=== PATIENT | male | born 1965 | race Caucasian/White ===

== ENCOUNTER 2019-04-18 15:35 | Outpatient (RCR) | payer OTHER, MEDICAID, SELFPAY | END 2019-04-27 00:01 | LOC: LAB 15:35 | PROVIDERS: Family Provider Family Medicine; Visit Provider Nurse Practitioner Family | DX: I10 Essential (primary) hypertension (principal); E11.9 Type 2 diabetes mellitus without complications; B17.10 Acute hepatitis C without hepatic coma | CPT/HCPCS: 36415; 80048; 85025; 87522 ==

== ENCOUNTER → 2019-06-19 08:27 | Outpatient (BNVA) | payer OTHER, MEDICAID, SELFPAY | PROVIDERS: Family Provider Family Medicine; PCP Family Medicine; Visit Provider Anesthesiology | DX: M54.9 Dorsalgia, unspecified (principal); Z79.891 Long term (current) use of opiate analgesic | CPT/HCPCS: 99213; 99214 ==

== ENCOUNTER → 2019-08-09 08:14 | Outpatient (BNVA) | payer OTHER, MEDICAID, SELFPAY | PROVIDERS: Family Provider Family Medicine; PCP Family Medicine; Visit Provider Anesthesiology | DX: G89.29 Other chronic pain (principal); M51.36 Other intervertebral disc degeneration, lumbar region; M96.1 Postlaminectomy syndrome, not elsewhere classified; M54.2 Cervicalgia; M25.511 Pain in right shoulder; Z79.891 Long term (current) use of opiate analgesic | CPT/HCPCS: 99214 ==

== ENCOUNTER → 2019-12-03 10:30 | Outpatient (BNVA) | payer OTHER, MEDICAID, SELFPAY | PROVIDERS: Family Provider Family Medicine; PCP Family Medicine; Visit Provider Anesthesiology | DX: G89.29 Other chronic pain (principal); M54.42 Lumbago with sciatica, left side; M54.41 Lumbago with sciatica, right side; M51.36 Other intervertebral disc degeneration, lumbar region; M54.9 Dorsalgia, unspecified; M96.1 Postlaminectomy syndrome, not elsewhere classified; M54.2 Cervicalgia; M25.511 Pain in right shoulder; F17.220 Nicotine dependence, chewing tobacco, uncomplicated; Z79.891 Long term (current) use of opiate analgesic | CPT/HCPCS: 99214 ==

== ENCOUNTER → 2020-02-07 10:45 | Outpatient (BNVA) | payer OTHER, MEDICAID, SELFPAY | PROVIDERS: Family Provider Family Medicine; PCP Family Medicine; Visit Provider Anesthesiology | DX: G89.29 Other chronic pain (principal); M54.42 Lumbago with sciatica, left side; M54.41 Lumbago with sciatica, right side; M51.36 Other intervertebral disc degeneration, lumbar region; M54.9 Dorsalgia, unspecified; M96.1 Postlaminectomy syndrome, not elsewhere classified; M54.2 Cervicalgia; F17.220 Nicotine dependence, chewing tobacco, uncomplicated; Z79.891 Long term (current) use of opiate analgesic | CPT/HCPCS: 99214 ==

== ENCOUNTER → 2020-04-02 09:09 | Outpatient (BNVA) | payer OTHER, MEDICAID, SELFPAY | PROVIDERS: Family Provider Family Medicine; PCP Family Medicine; Visit Provider Anesthesiology | DX: G89.29 Other chronic pain (principal); M51.36 Other intervertebral disc degeneration, lumbar region; M54.9 Dorsalgia, unspecified; M96.1 Postlaminectomy syndrome, not elsewhere classified; M54.2 Cervicalgia; Z79.891 Long term (current) use of opiate analgesic | CPT/HCPCS: 99213; 99214 ==

== ENCOUNTER → 2020-06-05 08:56 | Outpatient (BNVA) | payer OTHER, MEDICAID, SELFPAY | PROVIDERS: Family Provider Family Medicine; PCP Family Medicine; Visit Provider Anesthesiology | DX: G89.29 Other chronic pain (principal); M51.36 Other intervertebral disc degeneration, lumbar region; M96.1 Postlaminectomy syndrome, not elsewhere classified; M54.9 Dorsalgia, unspecified; M54.2 Cervicalgia; F17.210 Nicotine dependence, cigarettes, uncomplicated; Z79.891 Long term (current) use of opiate analgesic | CPT/HCPCS: 99214 ==

== ENCOUNTER → 2020-07-22 15:21 | Outpatient (BNVA) | payer OTHER, MEDICAID, SELFPAY | PROVIDERS: Family Provider Family Medicine; PCP Family Medicine; Referring Provider Nurse Practitioner Family; Visit Provider Specialist | DX: M19.071 Primary osteoarthritis, right ankle and foot (principal); M25.571 Pain in right ankle and joints of right foot | CPT/HCPCS: 73610 ==

== ENCOUNTER → 2020-07-24 09:45 | Outpatient (BNVA) | payer OTHER, MEDICAID, SELFPAY | PROVIDERS: Family Provider Family Medicine; PCP Family Medicine; Visit Provider Anesthesiology | DX: G89.29 Other chronic pain (principal); M54.9 Dorsalgia, unspecified; M51.36 Other intervertebral disc degeneration, lumbar region; M54.2 Cervicalgia; M96.1 Postlaminectomy syndrome, not elsewhere classified; F17.220 Nicotine dependence, chewing tobacco, uncomplicated; Z79.891 Long term (current) use of opiate analgesic | CPT/HCPCS: 99214 ==

== ENCOUNTER → 2020-09-11 13:15 | Day surgery (SDC) | payer OTHER, MEDICAID, SELFPAY ==
[2020-09-10 18:09] VITALS: BMI 29.4
[2020-09-11] VITALS (7 sets, daily range): BP systolic 138–167; BP diastolic 59–95; PULSE 81–92; RESP 16–18; TEMP 36.3–37.1; O2SAT 94–95
[2020-09-11 07:35] LABS: Glucose Point of Care 184 mg/dL (70-110)
--- NOTE | 2020-09-11 08:02 | ANES.PREANE2 ---
Pre-Anesthetic Assessment Pre-Anesthetic Assessment: Height/Weight: Height 1.83 m Weight 98.43 kg Preop Diagnosis: Spastic equinus contracture right ankle Proposed Procedure: Operation Date: 09/11/20 10:50 Proposed Procedures p Tendon Lengthening Foot 34117 M24.573(Right) - Jarad Hernandez DPM Was Beta Win taken within 24 hours: Yes Was Clonidine taken within 24 hours: N/A Last intake: Intake Last Liquid Date 09/11/20 Last Liquid Time 05:30 Last Solid Date 09/10/20 Last Solid Time 17:30 Social: Social History: No alcohol and No tobacco Exam: Pre-Anes Outpt Exam: alert, oriented x 3 and regular rate & rhythm Airway: Submandibular: WNL Cervical ROM: WNL MP: 2 Dentition: Full Pulmonary: Pulmonary: COPD CV/HEM: CV/HEM: HTN Metabolic: Metabolic: DM Musc/skel: Musc/skel: Lower Back Pain and Weakness Comments: chronic pain/opioid, wheelchair-bound, right hemiplegia Neuropsych: Neuropsych: Neuropathy Anesthetic Plan: ASA status: 3 Anesthesia: General Risk of > 500 ml blood loss (7ml/kg in children): No PFSH Anesthesia PFSH: Medical History (Updated 09/06/20 @ 22:26 by Jarad Hernandez DPM) ADD (attention deficit disorder) Chronic back pain Chronic hepatitis C Chronic neck pain Chronic right shoulder pain DDD (degenerative disc disease), lumbar Depression Encounter for long-term opiate analgesic use Frontotemporal dementia Late effect of brain injury Postlaminectomy syndrome Spastic hemiplegia Traumatic brain injury Surgical History S/P laminectomy S/P tonsillectomy Status post tracheostomy Family History Mother Hypertension Father Family history of premature coronary artery disease FATHER AT AGE 65 Social History Smoking and tobacco status: current some day smoker smokeless tobacco Smokeless tobacco user: chewing tobacco Second hand smoke exposure: No Alcohol intake: former Lives independently: No Housing: [facility] History of recent travel: No Data Anesthesia Other Labs: Laboratory Results - last 48 hr 09/11/20 07:24 POC Glucose 184 H Cardiac Studies: No Data to Display
[2020-09-11] MEDS: sodium chloride 0.9% 1,000 ML 30 ML IV (08:16)
[2020-09-11] MEDS: fentaNYL 50 mcg/mL INJ 2mL 100 MCG IVP (08:17)
--- NOTE | 2020-09-11 10:50 | W.PM.OPSUD ---
Surgery/Procedure H&P Update DATE OF PROCEDURE: September 11, 2020 DATE H&P PERFORMED: 09/11/20 H&P UPDATE INFORMATION: I have reviewed H&P completed within last 30 days, I have examined patient prior to procedure, No changes to prior documentation and H&P is in [facility] EMR on date indicated PREOP DIAGNOSIS: Spastic equinus contracture right ankle PLANNED PROCEDURE: Operation Date: 09/11/20 10:50 Proposed Procedures p Tendon Lengthening Foot 69747 M24.573(Right) - Jarad Hernandez DPM
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
[2020-09-11] MEDS: lidocaine 1% INJ 20 mL SUBCUT (11:55)
[2020-09-11] MEDS: neomycin-poly-bacitracin oint 28 gm 28 APPLIC (11:58)
--- NOTE | 2020-09-11 13:10 | SUR.PHASEII ---
1245 getting pt dressed and left great toe dressing inadvertenly removed,sterile dressing reapplied 1305 report called to [facility] and spoke with tatianna colbert
--- NOTE | 2020-09-11 13:18 | ANE.PACU2 ---
Inpatient post-anesthesia follow up: Airway intact: Yes Vital signs: Temperature 97.9 F Pulse Rate 84 Respiratory Rate 17 Blood Pressure 140/88 Pulse Oximetry 95 Oxygen Delivery Me thod Room Air Oxygen Flow Rate Fraction of Inspir ed Oxygen Hydration adequate: Yes Nausea and vomiting: No Pain level: 1 Mental status: Baseline
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
== END | disposition home or self-care (01) ==
LOC: OR 13:16
PROVIDERS: PCP Family Medicine; Visit Provider Podiatrist Foot & Ankle Surgery
PROC: (CPT 28261; principal; 2020-09-11 10:40)
PROC: 0HTRXZZ Resection of Toe Nail, External Approach (ICD-10-PCS; CPT 11750; 2020-09-11 10:40)
DX: M24.571 Contracture, right ankle (principal); L03.032 Cellulitis of left toe; J44.9 Chronic obstructive pulmonary disease, unspecified; I10 Essential (primary) hypertension; E11.40 Type 2 diabetes mellitus with diabetic neuropathy, unspecified; Z86.19 Personal history of other infectious and parasitic diseases; F17.220 Nicotine dependence, chewing tobacco, uncomplicated; Z79.84 Long term (current) use of oral hypoglycemic drugs
CPT/HCPCS: 11730; 27685; 36416; 82962; 96374; J0690; J3010; J3490; J7030

== ENCOUNTER → 2020-09-17 09:59 | Outpatient (BNVA) | payer OTHER, MEDICAID, SELFPAY | PROVIDERS: PCP Family Medicine; Visit Provider Anesthesiology | DX: G89.29 Other chronic pain (principal); M51.36 Other intervertebral disc degeneration, lumbar region; M54.9 Dorsalgia, unspecified; M96.1 Postlaminectomy syndrome, not elsewhere classified; M54.2 Cervicalgia; F17.210 Nicotine dependence, cigarettes, uncomplicated; Z79.891 Long term (current) use of opiate analgesic | CPT/HCPCS: 99213 ==

== ENCOUNTER → 2020-11-24 09:22 | Outpatient (BNVA) | payer OTHER, MEDICAID, SELFPAY | PROVIDERS: PCP Family Medicine; Visit Provider Nurse Practitioner | DX: G89.29 Other chronic pain (principal); M51.36 Other intervertebral disc degeneration, lumbar region; M54.9 Dorsalgia, unspecified; M54.2 Cervicalgia; M25.511 Pain in right shoulder; M96.1 Postlaminectomy syndrome, not elsewhere classified; F17.220 Nicotine dependence, chewing tobacco, uncomplicated; Z79.891 Long term (current) use of opiate analgesic | CPT/HCPCS: 99213 ==

== ENCOUNTER → 2021-01-19 09:55 | Outpatient (BNVA) | payer OTHER, MEDICAID, SELFPAY | PROVIDERS: PCP Family Medicine; Visit Provider Anesthesiology | DX: G89.29 Other chronic pain (principal); M51.36 Other intervertebral disc degeneration, lumbar region; M54.2 Cervicalgia; M96.1 Postlaminectomy syndrome, not elsewhere classified; Z79.891 Long term (current) use of opiate analgesic | CPT/HCPCS: 99214 ==

== ENCOUNTER 2021-01-31 21:12 | Inpatient (IN) | payer OTHER, MEDICAID, SELFPAY ==
[2021-01-31 21:15] VITALS: BP 173/109; PULSE 141; RESP 34; TEMP 37.5; O2SAT 92; BMI 30.2
[2021-01-31 21:23] VITALS: BP 129/76; PULSE 97; RESP 34; O2SAT 94
--- NOTE | 2021-01-31 21:23 | XRR_ITS ---
PROCEDURE INFORMATION: Exam: XR Chest Exam date and time: 01/31/2021 9:23 PM Age: 55 years old Clinical indication: Dyspnea; Prior surgery; Surgery date: 6+ months; Surgery type: RT ribs; Additional info: Fever SOB cough TECHNIQUE: Imaging protocol: XR of the chest. Views: 1 view. COMPARISON: No relevant prior studies available. FINDINGS: Lungs: No definite CHF/pulmonary edema. Poor inspiration somewhat limits evaluation, especially of the lung bases. Moderate left mid and lower lung opacities suspicious for pneumonia. The visible right lung appears essentially clear. Pleural spaces: Suspect a moderate amount of left pleural fluid. No visible pneumothorax. No definite pleural fluid. Heart/Mediastinum: Heart size is upper range of normal. Bones/joints: Multiple old right rib fractures with prior surgical fixation. XR/XR chest 1V portable [id number] IMPRESSION: 1. Moderate left mid and lower lung opacities suspicious for pneumonia. 2. Suspect a moderate amount of left pleural fluid. 3. Other findings discussed above.
--- NOTE | 2021-01-31 21:23 | CTR_ITS ---
PROCEDURE INFORMATION: Exam: CT Abdomen And Pelvis With Contrast Exam date and time: 01/31/2021 9:23 PM Age: 55 years old Clinical indication: Bloating; Patient HX: C/O distention w L sided abd spasms; Additional info: Abd pain and distension TECHNIQUE: Imaging protocol: Computed tomography of the abdomen and pelvis with contrast. Radiation optimization: All CT scans at this facility use at least one of these dose optimization techniques: automated exposure control; mA and/or kV adjustment per patient size (includes targeted exams where dose is matched to clinical indication); or iterative reconstruction. Contrast material: OMNI 300; Contrast volume: 95 ml; Contrast route: INTRAVENOUS (IV); COMPARISON: abdomen limited 04207 08/20/2018 9:34 AM RADIATION DOSE METRICS: Total DLP (mGy-cm): 1946.41 FINDINGS: Lungs: There is dense consolidation seen within the left lower lobe compatible with atelectasis versus pneumonia. A some strandy opacities are seen in the right lung base compatible with atelectasis. Pleural spaces: There is a moderate left pleural effusion present. A calcific pleural plaque is seen in the right posterior lung base. Liver: There is hypoattenuation of the hepatic parenchyma compatible with fatty infiltration. Gallbladder and bile ducts: Normal. No calcified stones. No ductal dilation. Pancreas: Normal. No ductal dilation. Spleen: Normal. No splenomegaly. Adrenal glands: Normal. No mass. Kidneys and ureters: Normal. No hydronephrosis. Stomach and bowel: Unremarkable. No obstruction. No mucosal thickening. Appendix: The appendix is not seen in today's examination. There are no inflammatory changes seen to suggest appendicitis. Intraperitoneal space: Unremarkable. No free air. No significant fluid collection. Vasculature: Unremarkable. No abdominal aortic aneurysm. Lymph nodes: Unremarkable. No enlarged lymph nodes. Urinary bladder: Unremarkable as visualized. Reproductive: Coarse calcifications seen within the central portion the prostate gland. Bones/joints: Severe loss of disc height is seen at L5-S1 with vacuum disc phenomenon seen. Status post internal fixation of the 6th through 8th ribs on the right. Soft tissues: Unremarkable. CT/CT abdomen pelvis w con* [id number] IMPRESSION: 1. Fatty infiltration of the liver 2. Moderate pleural effusion 3. Dense consolidation within the left lower lobe compatible with atelectasis versus pneumonia Radiation Dose CTDIVOL = (mGy): DLP = 4936.41 (mGy-cm)
[2021-01-31 21:30] LABS: Glucose Point of Care 202 mg/dL (70-110)
[2021-01-31] MEDS: ondansetron 2 mg/ML SDV 2 mL 4 MG IVP (21:32)
[2021-01-31] MEDS: sodium chloride 0.9% 1,000 ML 999 ML IV (21:32)
[2021-01-31 21:33] VITALS: RESP 40; O2SAT 92
[2021-01-31] MEDS: fentaNYL 50 mcg/mL INJ 2mL 101.2 MCG IVP (21:33)
--- NOTE | 2021-01-31 21:44 | PC.NURSE ---
entire admission assessment charted on wrong patient. correct data will be stamped after this time.
[2021-01-31 22:00] VITALS: BP 206/138; PULSE 148; RESP 36; O2SAT 91
[2021-01-31 22:06] LABS: Urine Appearance Clear (CLEAR); Urine Color Yellow (Yellow)
[2021-01-31 22:07] LABS: Add Urine Microscopic? YES; Bilirubin Urine 1+ (Negative); Blood Urine Neg (Negative); Glucose Urine UA Norm (Normal); Ketones Urine 1+ (Negative); Leukocyte Esterase Urine Negative (Negative); Nitrate Urine Negative (Negative); Protein Urine 1+ (Negative); Specific Gravity, Urine 1.025 (1.005-1.030); Urobilinogen Urine 8 mg/dL (Negative); pH Urine 5 (5-7)
[2021-01-31] MEDS: LORazepam 2 mg/mL INJ 1 mL 1 MG IVP (22:16)
[2021-01-31] MEDS: labetalol 5 mg/mL SDV 20mL 20 MG IVP (22:16)
[2021-01-31 22:18] LABS: Basophils # 0.1 10^3/uL (0.0-0.1); Basophils % 0.3 %; Eosinophils # 0.3 10^3/uL (0.0-0.8); Eosinophils % 1.7 %; Hematocrit 41.8 % (42.0-52.0); Hemoglobin 12.9 g/dL (11.7-16.6); Lymphocytes # 2.6 10^3/uL (0.8-4.8); Lymphocytes % 15.1 %; Mean Corpuscular HGB Conc 30.9 g/dL (30.0-36.0); Mean Corpuscular Hemoglobin 24.9 pg (28.0-34.0); Mean Corpuscular Volume 80.7 fl (80-94); Mean Platelet Volume 9.7 fL (7.4-10.4); Monocytes # 1.1 10^3/uL (0.2-0.9); Monocytes % 6.3 %; Neutrophils # 13.28 10^3/uL (1.8-7.7); Nucleated Red Blood Cells % 0 %; Platelet Count 390 10^3/cmm (130-400); Red Blood Count 5.18 10^6/uL (4.1-5.3); Red Cell Distribution Width 15.2 % (12.1-15.1); White Blood Count 17.5 10^3/uL (4.0-10.0)
[2021-01-31 22:29] LABS: Add Urine Culture? No; Bacteria Urine TRACE /hpf; Mucus Urine 2+ /hpf; RBC Urine 0-4 /hpf (0-2); Squamous Epithelial Cell Urine 0-4 /hpf (0-5); WBC Urine 0-4 /hpf (0-5)
[2021-01-31 22:29] LABS: ABG PH Result 7.36 (7.35-7.45); Arterial Blood Gas Hematocrit 40.8 % (42-52); Base Excess ABG -3.2 mmol/L (-2.0-2.0); Blood Gas Allen Test Pos; Blood Gas Sample Site Radial, left; Blood Gas Sample Type Arterial; HCO3 ABG 21.9 mmol/L (22-26); Oxygen Device NC; PO2 ABG 69.7 mmHg (80.0-100.0)
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
[2021-01-31 22:49] LABS: Lactate (Lactic Acid level) 1.6 mmol/L (0.5-2.2)
[2021-01-31 22:59] LABS: NT Pro B Type Natriuretic Pept 43 pg/mL (0-125)
[2021-01-31 23:00] VITALS: BP 142/84; PULSE 137; RESP 37; O2SAT 91
[2021-01-31 23:11] LABS: Alanine Aminotransferase 13 U/L (0-41); Albumin Level 3.3 g/dL (3.5-5.2); Alkaline Phosphatase 67 IU/L (40-130); Anion Gap 19.7 (5-19); Aspartate Amino Transferase 10 U/L (0-40); Blood Urea Nitrogen 15 mg/dL (6-20); Calcium 8.5 mg/dL (8.5-10.5); Carbon Dioxide 21 mmol/L (22-29); Chloride 94 mmol/L (98-107); Creatine Phosphokinase 78 U/L (39-308); Globulin 4.1 g/dL (1.3-4.6); Glomerular Filtration Rate 140.4 mL/min (90-130); Glucose 192 mg/dL (65-115); Lipase 16 U/L (13-60); Osmolality Calculated 276 mOsm/kg (285-295); Potassium 4.7 mmol/L (3.5-5.1); Sodium 130 mmol/L (136-145); Total Bilirubin 0.4 mg/dL (0.15-1.2); Total Protein 7.4 g/dL (6.6-8.7)
[2021-01-31 23:15] VITALS: BP 149/84; PULSE 138; RESP 34; O2SAT 90
[2021-01-31] MEDS: iohexol 300 mg/mL 100 mL Btl IV (23:38)
[2021-02-01] VITALS (61 sets, daily range): BP systolic 80–144; BP diastolic 51–97; PULSE 116–138; RESP 12–24; TEMP 37.1–37.9; O2SAT 88–96
[2021-02-01] MEDS: levofloxacin-dextrose 5 % 750 MG/150 ML PREMIX 100 MG IV (00:38)
--- NOTE | 2021-02-01 00:48 | CTR_ITS ---
PROCEDURE INFORMATION: Exam: CTA Chest With Contrast Exam date and time: 02/01/2021 12:48 AM Age: 55 years old Clinical indication: Dyspnea; Prior surgery; Surgery date: 6+ months; Additional info: SOB TECHNIQUE: Imaging protocol: Computed tomographic angiography of the chest with contrast. 3D rendering (Not supervised by radiologist): MIP and/or 3D reconstructed images were created by the technologist. Radiation optimization: All CT scans at this facility use at least one of these dose optimization techniques: automated exposure control; mA and/or kV adjustment per patient size (includes targeted exams where dose is matched to clinical indication); or iterative reconstruction. Contrast material: OMNI 300; Contrast volume: 95 ml; Contrast route: INTRAVENOUS (IV); COMPARISON: CR (CHEST, ) 01/31/2021 10:08 PM RADIATION DOSE METRICS: Total DLP (mGy-cm): 618.72 FINDINGS: Pulmonary arteries: Normal. No pulmonary emboli. Aorta: Unremarkable. No aortic aneurysm. No aortic dissection. Lungs: There is an enteric tube tip passes into the trachea and right lower lobe bronchi. Strandy opacities and consolidation seen in the left lung base superimposed over the pleural effusion compatible with atelectasis versus left basilar pneumonia. Pleural spaces: There is a moderate left pleural effusion. Some calcific pleural plaques are seen in the right posterior costophrenic recess. Heart: Unremarkable. No cardiomegaly. No pericardial effusion. Lymph nodes: Unremarkable. No enlarged lymph nodes. Liver: There is hypoattenuation of the hepatic parenchyma compatible with fatty infiltration. Bones/joints: Status post and sternal fixation of the 6-8 ribs on the right. Soft tissues: Unremarkable. CT/CT angio chest PE protcl [id number] IMPRESSION: 1. An enteric tube tip passes into the trachea and right lower lobe bronchi 2. Stable left pleural effusion and basilar atelectasis versus infiltrates compared with yesterday's examination. 3. Fatty infiltration of the liver Radiation Dose CTDIVOL = (mGy): DLP = 618.72 (mGy-cm)
[2021-02-01] MEDS: cetacaine Spray 5 gm Can 1 SPRAY TOPICAL (01:51)
[2021-02-01] MEDS: iohexol 300 mg/mL 100 mL Btl IV (02:53)
[2021-02-01] MEDS: fentaNYL 50 mcg/mL INJ 2mL 100 MCG IVP (02:59)
[2021-02-01 03:17] LABS: ABG PCO2 34.4 mmHg (35-45); ABG PH Result 7.35 (7.35-7.45); Arterial Blood Gas Hematocrit 42.8 % (42-52); Base Excess ABG -6.1 mmol/L (-2.0-2.0); Blood Gas Allen Test Pos; Blood Gas Sample Site Radial, left; Blood Gas Sample Type Arterial; HCO3 ABG 18.8 mmol/L (22-26); Oxygen Device OXY MASK; PO2 ABG 77.2 mmHg (80.0-100.0)
--- NOTE | 2021-02-01 03:22 | XRR_ITS ---
PROCEDURE INFORMATION: Exam: XR Chest Exam date and time: 02/01/2021 3:22 AM Age: 55 years old Clinical indication: Device placement; Ett placement (vent status); Additional info: Post et tube TECHNIQUE: Imaging protocol: XR of the chest. Views: 1 view. COMPARISON: CR (CHEST, ) 01/31/2021 10:08 PM FINDINGS: Tubes, catheters and devices: An endotracheal tube is placed with its tip approximately 7.8 cm from the tiffany. The endotracheal tube tip is at the thoracic inlet. Nasogastric tube is present with its tip at least in the proximal stomach. Lungs: See Pleural spaces finding. Pleural spaces: There is a left pleural effusion present. Some strandy opacities superimposed over the left pleural effusion likely representing atelectasis. A left basilar pneumonia cannot be entirely excluded. Heart/Mediastinum: Unremarkable. No cardiomegaly. Bones/joints: Status post internal fixation of right rib fractures. XR/XR chest 1V portable [id number] IMPRESSION: 1. Endotracheal tube tip 7.8 cm from the tiffany. 2. Nasogastric tube placed with tip at least in proximal stomach. 3. Left pleural effusion with superimposed strandy opacities likely representing atelectasis. Left basilar infiltrates and pneumonia cannot be entirely excluded.
[2021-02-01] MEDS: succinylcholine 20 mg/mL SDV 10mL 200 MG IVP (04:05)
[2021-02-01] MEDS: midazolam 1 mg/mL INJ 2 mL 4 MG IVP (04:05)
[2021-02-01 04:06] LABS: Lactate (Lactic Acid level) 4.3 mmol/L (0.5-2.2)
[2021-02-01] MEDS: propofol 1,000 MG/100 ML INJ 6.07 MG IV (04:10)
[2021-02-01] MEDS: vecuronium 10 mg SDV IVP (04:20)
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
[2021-02-01] MEDS: metoprolol tartrate 1 mg/1 mL SDV 5 mL 5 MG IVP ×3 (04:47→13:39)
--- NOTE | 2021-02-01 04:47 | ECG_ITS ---
[facility] Test Date: 2021-02-01 Pat Name: Jayjay Peterson Department: Room: Gender: Male Pacu Nurse: : 1965 Requested By: Danni Mendez Order Number: [id number] Yeimi MD: IVON HARDIN Measurements Intervals [place] Rate: 128 P: 48 ND: 153 QRS: 56 QRSD: 97 T: 43 QT: 279 QTc: 408 Interpretive Statements SINUS TACHYCARDIA ABNORMAL RHYTHM ECG No previous ECG available for comparison Electronically Signed On 02-01-2021 18:34:24 CDT by IVON HARDIN [id number]
[2021-02-01 05:36] LABS: ABG PCO2 50.6 mmHg (35-45); ABG PH Result 7.23 (7.35-7.45); Arterial Blood Gas Hematocrit 44.2 % (42-52); Base Excess ABG -6.6 mmol/L (-2.0-2.0); Blood Gas Allen Test Pos; Blood Gas Sample Site Radial, left; Blood Gas Sample Type Arterial; HCO3 ABG 21.3 mmol/L (22-26); Oxygen Device VENT
[2021-02-01] MEDS: midazolam 1 mg/mL INJ 2 mL 2 MG IVP (06:00)
[2021-02-01] MEDS: enoxaparin 40 mg/0.4 mL Syringe SUBCUT (06:00)
[2021-02-01] MEDS: vancomycin 1,250 MG/250 ML PIGGYBACK 200 MG IV ×3 (06:22→21:38)
[2021-02-01] MEDS: sodium chloride 0.9% 1,000 ML 150 ML IV (06:23)
--- NOTE | 2021-02-01 06:47 | ECG_ITS ---
[facility] Test Date: 2021-02-01 Pat Name: Jayjay Peterson Department: Room: Gender: Male Harness Cleaner: : 1965 Requested By: Danni Mendez Order Number: [id number] Yeimi MD: IVON HARDIN Measurements Intervals [place] Rate: 126 P: 46 [place]: 144 QRS: 56 QRSD: 94 T: 43 QT: 287 QTc: 416 Interpretive Statements SINUS TACHYCARDIA ABNORMAL RHYTHM ECG Compared to ECG 02/01/2021 05:38:40 No significant changes Electronically Signed On 02-01-2021 18:36:42 CDT by IVON HARDIN [id number]
--- NOTE | 2021-02-01 06:58 | PC.NURSE ---
attempted to call report. was left on hold with ICU for 5 min. hung up and recalled the ICU. Elvira states that the nurses are in report and she told this patients nurse that i was calling to give report. still not able to give report at this time.
[2021-02-01 07:02] LABS: SARS Covid-2 Antigen Negative (Negative)
[2021-02-01] MEDS: polyethylene glycol 3350 Pkt 17 gm PO (09:42)
[2021-02-01] MEDS: lactulose oral liq 20 gm/30 mL UDC PO ×3 (09:42→23:26)
[2021-02-01] MEDS: pantoprazole 40 mg SDV IVP (09:42)
--- NOTE | 2021-02-01 10:06 | PC.PHAR ---
pt is from [facility] [phone]-debbie toledo verified pts medications and times meds are given states the pt doesnt take any insulins -evelia from [facility] states the pt takes norco 7.5/325mg 1 tab qid prn-Dr. Frey wrote rx on 01/19/21 for 1 tab tid prn
[2021-02-01] MEDS: aspirin 81 mg EC Tablet PO (10:16)
[2021-02-01] MEDS: propofol 1,000 MG/100 ML INJ 15.17 MG IV ×4 (10:28→21:35)
[2021-02-01 10:35] LABS: Glucose Point of Care 266 mg/dL (70-110)
--- NOTE | 2021-02-01 10:47 | ECG_ITS ---
[facility] Test Date: 2021-02-01 Pat Name: Jayjay Peterson Department: Room: ICU08 Gender: Male Change Management Coordinator: : 1965 Requested By: Danni Mendez Order Number: [id number] Reading MD: IVON HARDIN Measurements Intervals [place] Rate: 129 P: 42 [place]: 146 QRS: 49 QRSD: 93 T: 38 QT: 268 QTc: 393 Interpretive Statements SINUS TACHYCARDIA ABNORMAL RHYTHM ECG Compared to ECG 02/01/2021 06:35:44 No significant changes Electronically Signed On 02-01-2021 18:36:06 CDT by IVON HARDIN [id number]
--- NOTE | 2021-02-01 12:24 | PC.NURSE ---
Spoke with CARLOS EDUARDO Stephen. Updated her on labs, pressers and HR. Answered all qluestions.
[2021-02-01 12:25] LABS: INR 1.25 (0.8-1.2)
[2021-02-01 12:26] LABS: Fibrinogen 834 mg/dL (174-498); Partial Thromboplastin Time 19.9 SECONDS (23.9-36.7)
[2021-02-01 12:29] LABS: D Dimer 3.62 ug/mIFEU (0-0.59)
[2021-02-01 12:32] LABS: Estmated Average Glucose 183
[2021-02-01 12:32] LABS: Lactate (Lactic Acid level) 2.6 mmol/L (0.5-2.2)
[2021-02-01 12:40] LABS: Troponin(5th) Baseline 23 ng/L (0-15)
[2021-02-01 12:42] LABS: Ferritin 256 ng/mL (30-400)
[2021-02-01 12:48] LABS: C Reactive Protein 332.3 mg/L (0.0-4.9); NT Pro B Type Natriuretic Pept 253 pg/mL (0-125)
[2021-02-01 12:49] LABS: Procalcitonin 6.69 ng/mL (0-0.5)
--- NOTE | 2021-02-01 13:37 | PC.NURSE ---
consent for Central line obtained from CARLOS EDUARDO Stephen.
[2021-02-01] MEDS: Fleet Enema 133 mL Enema PR (13:38)
[2021-02-01] MEDS: docusate sodium 10 mg/mL (5ml) Liq 100 MG OG-TUBE ×2 (13:40→17:36)
--- NOTE | 2021-02-01 13:41 | ANES.PROC ---
Anesthesia Procedures Procedure/Date: 02/01/21 Central Venous Insert: Central Venous Line: R Internal jugular Time Out Performed: Yes Consent: requested by attending/covering physician and from other Central Line: New Anesthesia monitors: pulse oximetry, EKG, BP cuff and oxygen Vein cannulated: right internal jugular Ultrasound used: to identify patency to vessel and to visualize needle entry to vein Post procedure: Obtain Chest X-Ray Additional Comments: Chloroprep used to cleanse skin, sterile gown and gloves, hat and N95, sterile fullbody drape applied, patient re-cleansed again over drape window at neck
--- NOTE | 2021-02-01 13:55 | XRR_ITS ---
PROCEDURE INFORMATION: Exam: XR Chest Exam date and time: 02/01/2021 1:55 PM Age: 55 years old Clinical indication: Central line placment. TECHNIQUE: Imaging protocol: XR of the chest. Views: 1 view. COMPARISON: CR XR chest 1V portable [id number] 02/01/2021 4:15 AM FINDINGS: Tubes, catheters and devices: Endotracheal tube with tip approximately 3.6 cm above the tiffany. Nasogastric tube projects into the abdomen. Its tip is not included on the current study. Right central venous access device with tip in the SVC/right atrial junction. Lungs: There is increased consolidation at the left base. Possible patchy opacity at the right base. Pleural spaces: There is worsening moderate to large left pleural effusion. No pneumothorax. Heart/Mediastinum: The cardiac silhouette is approximately unchanged given differences in pulmonary inflation/positioning. No gross evidence of pneumomediastinum. Bones/joints: No gross fracture. Hardware affixes old right rib fractures in unchanged alignment. XR/XR chest 1V portable [id number] IMPRESSION: 1. Endotracheal tube with tip approximately 3.6 cm above the tiffany. 2. Nasogastric tube projects into the abdomen. Its tip is not included on the current study. 3. Right central venous access device with tip in the SVC/right atrial junction. 4. Increase consolidation at the left base. Possible patchy opacity at the right base. 5. Worsening moderate to large left pleural effusion.
[2021-02-01 14:00] LABS: Erythrocyte Sedimentation Rate 73 mm/hr (0-10)
[2021-02-01] MEDS: ipratropium-albuterol 3 mL Neb INHALATION ×2 (15:28→20:02)
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
[2021-02-01 17:21] LABS: Troponin 5 2HR 22.42 ng/L (0-15)
[2021-02-01 17:26] LABS: Troponin 5 2HR Delta -0.58 ABS# (0-10)
[2021-02-01] MEDS: ascorbic acid 500 mg Tablet PO (17:35)
[2021-02-01] MEDS: dexamethasone 10 mg/mL INJ 6 MG IVP (17:35)
--- NOTE | 2021-02-01 18:00 | ECG_ITS ---
[facility] Test Date: 2021-02-01 Pat Name: Jayjay Peterson Department: Room: ICU08 Gender: Male Fisher Weir: : 1965 Requested By: Bijan Burk Order Number: [id number] Reading MD: IVON HARDIN Measurements Intervals [place] Rate: 126 P: 45 DE: 138 QRS: 54 QRSD: 92 T: 39 QT: 278 QTc: 402 Interpretive Statements SINUS TACHYCARDIA ABNORMAL RHYTHM ECG Compared to ECG 02/01/2021 09:24:12 No significant changes Electronically Signed On 02-01-2021 18:35:29 CDT by IVON HARDIN [id number]
[2021-02-01 18:25] LABS: Glucose Point of Care 284 mg/dL (70-110)
[2021-02-01 19:30] LABS: Troponin 5 6HR 23.76 ng/L (0-15); Troponin 5 6HR Delta 0.76 ng/L (0-12)
[2021-02-01] MEDS: budesonide 0.5 mg/2 mL Neb INHALATION (20:02)
[2021-02-01 20:42] LABS: Glucose Point of Care 310 mg/dL (70-110)
[2021-02-01] MEDS: atorvastatin 40 mg Tablet 20 MG PO (21:38)
[2021-02-02] VITALS (81 sets, daily range): BP systolic 95–132; BP diastolic 62–95; PULSE 109–144; RESP 14–24; TEMP 36.8–37.7; O2SAT 91–100; BMI 31.3
[2021-02-02] MEDS: propofol 1,000 MG/100 ML INJ 15.17 MG IV ×6 (00:39→21:24)
[2021-02-02] MEDS: ipratropium-albuterol 3 mL Neb INHALATION ×4 (02:42→20:24)
[2021-02-02 03:19] LABS: ABG PH Result 7.28 (7.35-7.45); Arterial Blood Gas Hematocrit 39.7 % (42-52); Base Excess ABG -6.2 mmol/L (-2.0-2.0); Blood Gas Allen Test Pos; Blood Gas Sample Site Radial, left; Blood Gas Sample Type Arterial; HCO3 ABG 20.3 mmol/L (22-26); Oxygen Device VENT; PO2 ABG 92.2 mmHg (80.0-100.0)
[2021-02-02] MEDS: levofloxacin-dextrose 5 % 750 MG/150 ML PREMIX 100 MG IV (04:31)
[2021-02-02] MEDS: vancomycin 1,250 MG/250 ML PIGGYBACK 200 MG IV (05:06)
[2021-02-02] MEDS: enoxaparin 40 mg/0.4 mL Syringe SUBCUT (05:06)
[2021-02-02] MEDS: levothyroxine 25 mcg Tablet PO (05:06)
--- NOTE | 2021-02-02 05:54 | PC.NURSE ---
I called Dr. Burgess about the patient's increased heart rate and breathing over the ventilator by about 10 breaths. She gave an order to go up to 150 mcg. on the fentanyl drip. The patient is currently on 50 mcg. of propofol and now 150 mcg. of fentanyl, with a levophed drip running at 8 mcg. The patient had most of the night been running in the 120's for a heart rate and sustaining a blood pressure within normal parameters. The oxygenation has remained stable as well, running anywhere between 94-96%. Urine output was 1,100 mL for the shift. The patient's belly has remained round and firm with no other notable changes. The patient defecated once, it was medium sized and mucoid in appearance. During midnight the patient received another dose of lactulose. The labs are still pending.
[2021-02-02 05:57] LABS: Basophils % 0.2 %; Hematocrit 41.7 % (42.0-52.0); Hemoglobin 12.6 g/dL (11.7-16.6); Lymphocytes % 4.8 %; Mean Corpuscular HGB Conc 30.2 g/dL (30.0-36.0); Mean Corpuscular Hemoglobin 24.8 pg (28.0-34.0); Mean Corpuscular Volume 82.1 fl (80-94); Mean Platelet Volume 9.9 fL (7.4-10.4); Monocytes # 1.1 10^3/uL (0.2-0.9); Monocytes % 5.3 %; Neutrophils # 17.62 10^3/uL (1.8-7.7); Neutrophils % 88.6 %; Nucleated Red Blood Cells % 0 %; Platelet Count 407 10^3/cmm (130-400); Red Blood Count 5.08 10^6/uL (4.1-5.3); Red Cell Distribution Width 15.8 % (12.1-15.1); White Blood Count 19.9 10^3/uL (4.0-10.0)
[2021-02-02 06:04] LABS: Estmated Average Glucose 192; Hemoglobin A1C 8.3 % (4.0-6.0)
[2021-02-02 06:08] LABS: Lactate (Lactic Acid level) 2.4 mmol/L (0.5-2.2)
[2021-02-02 06:09] LABS: Vancomycin Trough 22.9 ug/mL (10-15)
[2021-02-02 06:30] LABS: NT Pro B Type Natriuretic Pept 119 pg/mL (0-125); Procalcitonin 4.22 ng/mL (0-0.5)
[2021-02-02 06:34] LABS: INR 1.23 (0.8-1.2)
[2021-02-02 06:43] LABS: Alanine Aminotransferase 11 U/L (0-41); Albumin Level 2.8 g/dL (3.5-5.2); Alkaline Phosphatase 66 IU/L (40-130); Anion Gap 21.2 (5-19); Aspartate Amino Transferase 11 U/L (0-40); Blood Urea Nitrogen 34 mg/dL (6-20); Calcium 7.9 mg/dL (8.5-10.5); Carbon Dioxide 19 mmol/L (22-29); Chloride 93 mmol/L (98-107); Globulin 4.6 g/dL (1.3-4.6); Glomerular Filtration Rate 48.6 mL/min (90-130); Glucose 394 mg/dL (65-115); Magnesium 2.2 mg/dL (1.7-2.3); Osmolality Calculated 290 mOsm/kg (285-295); Phosphorus 3.4 mg/dL (2.5-4.5); Potassium 5.2 mmol/L (3.5-5.1); Sodium 128 mmol/L (136-145); Total Bilirubin 0.5 mg/dL (0.15-1.2); Total Protein 7.4 g/dL (6.6-8.7)
--- NOTE | 2021-02-02 07:00 | XRR_ITS ---
PROCEDURE INFORMATION: Exam: XR Chest Exam date and time: 02/02/2021 7:00 AM Age: 56 years old Clinical indication: Dyspnea; Additional info: SOB TECHNIQUE: Imaging protocol: XR of the chest. Views: 1 view. COMPARISON: CR XR chest 1V portable [id number] 02/01/2021 2:04 PM FINDINGS: Tubes, catheters and devices: There is stable position of life support tubing. Lungs: Patchy and strandy opacities again seen in the left lower hemithorax compatible with a superimposing infiltrate. Some strandy opacities are seen in in the right lung base suggesting atelectasis. Pleural spaces: There is a persistent left pleural effusion unchanged from yesterday's examination. Heart/Mediastinum: Unremarkable. No cardiomegaly. Bones/joints: Unremarkable. XR/XR chest 1V portable [id number] IMPRESSION: 1. Continuing left pleural effusion unchanged from yesterday's examination 2. Patchy and strandy opacities again seen in left lower hemithorax compatible with a superimposed pneumonia. 3. Linear opacities in the right lower hemithorax may represent atelectasis as well. 4. Stable life support tubing
[2021-02-02 07:33] LABS: C Reactive Protein 457.3 mg/L (0.0-4.9); Creatine Phosphokinase 768 U/L (39-308)
[2021-02-02] MEDS: lactulose oral liq 20 gm/30 mL UDC PO ×2 (07:41→17:22)
[2021-02-02] MEDS: budesonide 0.5 mg/2 mL Neb INHALATION ×2 (07:45→20:24)
[2021-02-02 08:19] LABS: Glucose Point of Care 373 mg/dL (70-110)
[2021-02-02] MEDS: aspirin 81 mg EC Tablet PO (08:45)
[2021-02-02] MEDS: docusate sodium 10 mg/mL (5ml) Liq 100 MG OG-TUBE ×2 (08:46→17:24)
[2021-02-02] MEDS: zinc gluconate 50 mg Tablet PO (08:46)
[2021-02-02] MEDS: polyethylene glycol 3350 Pkt 17 gm PO (08:46)
[2021-02-02] MEDS: pantoprazole 40 mg SDV IVP (08:46)
[2021-02-02] MEDS: ascorbic acid 500 mg Tablet PO ×2 (08:46→17:22)
[2021-02-02] MEDS: cholecalciferol (vitamin D3) 1,000 unit Tablet 1000 UNIT PO (08:46)
[2021-02-02] MEDS: sodium bicarbonate 8.4% 1 mEq/mL 50mL Syr 50 MEQ IVP (08:46)
[2021-02-02] MEDS: lactated ringers 1,000 ML 50 ML IV (08:49)
[2021-02-02 12:25] LABS: Glucose Point of Care 316 mg/dL (70-110)
--- NOTE | 2021-02-02 15:00 | PC.NURSE ---
Pt HR maintains in the 120's occasionally going to 130's. Spoke to Dr. Burk to check pt home medication list. He takes Metoprolol at home 50mg.
[2021-02-02 16:08] LABS: Coronavirus Test Green County Not Detected
[2021-02-02 16:56] LABS: Albumin Level 2.8 g/dL (3.5-5.2); Alkaline Phosphatase 132 IU/L (40-130); Blood Urea Nitrogen 22 mg/dL (6-20); Calcium 8.1 mg/dL (8.5-10.5); Carbon Dioxide 24 mmol/L (22-29); Chloride 95 mmol/L (98-107); Globulin 4.8 g/dL (1.3-4.6); Glomerular Filtration Rate 87.6 mL/min (90-130); Glucose 269 mg/dL (65-115); Magnesium 2.4 mg/dL (1.7-2.3); Osmolality Calculated 287 mOsm/kg (285-295); Sodium 132 mmol/L (136-145); Total Bilirubin 0.3 mg/dL (0.15-1.2); Total Protein 7.6 g/dL (6.6-8.7)
[2021-02-02 16:58] LABS: Anion Gap 18.2 (5-19); Potassium 5.2 mmol/L (3.5-5.1)
[2021-02-02 16:59] LABS: Alanine Aminotransferase 11 U/L (0-41); Aspartate Amino Transferase 11 U/L (0-40)
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
[2021-02-02] MEDS: dexamethasone 10 mg/mL INJ 6 MG IVP (17:22)
[2021-02-02 17:25] LABS: Glucose Point of Care 254 mg/dL (70-110)
[2021-02-02] MEDS: linezolid premix 600 MG/300 ML PREMIX 300 MG IV (17:27)
[2021-02-02 20:31] LABS: Glucose Point of Care 272 mg/dL (70-110)
--- NOTE | 2021-02-02 20:48 | PC.NURSE ---
I called Dr. Burgess, and reported that the patient's heart rate has been sustaining in the 140 for the last 5 minutes. I received an order to do an IV push of 5 mg of Metoprolol, one time dose.
[2021-02-02 21:16] LABS: Vancomycin Random 10.2 ug/mL (20.0-40.0)
[2021-02-02] MEDS: atorvastatin 40 mg Tablet 20 MG PO (21:25)
[2021-02-02] MEDS: metoprolol tartrate 1 mg/1 mL SDV 5 mL 5 MG IVP (21:26)
[2021-02-03] VITALS (60 sets, daily range): BP systolic 106–162; BP diastolic 61–97; PULSE 105–134; RESP 11–23; TEMP 36.8–37.4; O2SAT 68–96; BMI 27.9
[2021-02-03] MEDS: lactulose oral liq 20 gm/30 mL UDC PO ×4 (00:21→23:01)
[2021-02-03] MEDS: propofol 1,000 MG/100 ML INJ 15.17 MG IV ×2 (00:21→04:46)
[2021-02-03] MEDS: ipratropium-albuterol 3 mL Neb INHALATION ×4 (02:25→21:15)
[2021-02-03] MEDS: levofloxacin-dextrose 5 % 750 MG/150 ML PREMIX 100 MG IV (02:27)
[2021-02-03 05:14] LABS: Basophils % 0.1 %; Eosinophils % 0.1 %; Hematocrit 35.5 % (42.0-52.0); Hemoglobin 10.8 g/dL (11.7-16.6); Lymphocytes # 1.2 10^3/uL (0.8-4.8); Mean Corpuscular HGB Conc 30.4 g/dL (30.0-36.0); Mean Corpuscular Hemoglobin 24.5 pg (28.0-34.0); Mean Corpuscular Volume 80.5 fl (80-94); Mean Platelet Volume 9.7 fL (7.4-10.4); Monocytes # 1.1 10^3/uL (0.2-0.9); Monocytes % 7.4 %; Neutrophils # 12.23 10^3/uL (1.8-7.7); Neutrophils % 83.6 %; Nucleated Red Blood Cells % 0 %; Platelet Count 389 10^3/cmm (130-400); Red Blood Count 4.41 10^6/uL (4.1-5.3); Red Cell Distribution Width 15.5 % (12.1-15.1); White Blood Count 14.6 10^3/uL (4.0-10.0)
[2021-02-03 05:21] LABS: ABG PCO2 42.5 mmHg (35-45); ABG PH Result 7.41 (7.35-7.45); Arterial Blood Gas Hematocrit 35.2 % (42-52); Base Excess ABG 1.6 mmol/L (-2.0-2.0); Blood Gas Allen Test Pos; Blood Gas Operator Identificat JB; Blood Gas Sample Site Radial, left; Blood Gas Sample Type Arterial; HCO3 ABG 26.6 mmol/L (22-26); Oxygen Device VENT; PO2 ABG 64.6 mmHg (80.0-100.0)
[2021-02-03 05:27] LABS: INR 1.35 (0.8-1.2)
[2021-02-03 05:28] LABS: Partial Thromboplastin Time 30.9 SECONDS (23.9-36.7)
[2021-02-03] MEDS: enoxaparin 40 mg/0.4 mL Syringe SUBCUT (05:28)
[2021-02-03] MEDS: lactated ringers 1,000 ML 50 ML IV (05:28)
[2021-02-03 05:29] LABS: Lactate (Lactic Acid level) 2.1 mmol/L (0.5-2.2)
[2021-02-03 05:36] LABS: Fibrinogen 1122 mg/dL (174-498)
[2021-02-03 05:41] LABS: Alanine Aminotransferase 10 U/L (0-41); Albumin Level 2.7 g/dL (3.5-5.2); Alkaline Phosphatase 64 IU/L (40-130); Anion Gap 15.8 (5-19); Aspartate Amino Transferase 15 U/L (0-40); Blood Urea Nitrogen 15 mg/dL (6-20); C Reactive Protein 298.3 mg/L (0.0-4.9); Calcium 8.2 mg/dL (8.5-10.5); Carbon Dioxide 25 mmol/L (22-29); Chloride 98 mmol/L (98-107); Globulin 4.5 g/dL (1.3-4.6); Glomerular Filtration Rate 139.9 mL/min (90-130); Glucose 302 mg/dL (65-115); Magnesium 2.2 mg/dL (1.7-2.3); NT Pro B Type Natriuretic Pept 47 pg/mL (0-125); NT Pro B Type Natriuretic Pept 49 pg/mL (0-125); Osmolality Calculated 290 mOsm/kg (285-295); Phosphorus 1.7 mg/dL (2.5-4.5); Potassium 4.8 mmol/L (3.5-5.1); Procalcitonin 2.01 ng/mL (0-0.5); Sodium 134 mmol/L (136-145); Total Bilirubin 0.3 mg/dL (0.15-1.2); Total Protein 7.2 g/dL (6.6-8.7)
[2021-02-03 05:42] LABS: D Dimer 3.98 ug/mIFEU (0-0.59)
[2021-02-03] MEDS: levothyroxine 25 mcg Tablet PO (05:53)
[2021-02-03] MEDS: linezolid premix 600 MG/300 ML PREMIX 300 MG IV ×2 (05:53→17:16)
--- NOTE | 2021-02-03 06:00 | ECG_ITS ---
[facility] Test Date: 2021-02-03 Pat Name: Jayjay Peterson Department: Room: [facility] Gender: Male Security Team Lead: : 1965 Requested By: Bijan Burk Order Number: [id number] Jalloh MD: Mirian Mandel M.D. Measurements Intervals [place] Rate: 117 P: 34 [place]: 120 QRS: 38 QRSD: 96 T: 43 QT: 291 QTc: 407 Interpretive Statements SINUS TACHYCARDIA ABNORMAL RHYTHM ECG Compared to ECG 02/01/2021 18:08:59 No significant changes Electronically Signed On 02-04-2021 10:41:04 CDT by Mirian Mandel M.D. [id number]
--- NOTE | 2021-02-03 06:00 | XR_ITS ---
WS: [id number] KUB, AP supine portable, 02/03/2021 Clinical Data: stool burden Comparison: KUB, 11/21/2013. Findings: No abnormal intraabdominal masses or calcifications are seen. There is no dilatated small bowel or ev idence of obstruction. The nasogastric tube ends within the stomach. There is a monitor lead over the abdominal wall. There is air in the colon. Breathing motion obscures detail. XR/XR KUB portable [id number] Impression: Moderate generalized ileus.
[2021-02-03 06:16] LABS: Creatine Phosphokinase 763 U/L (39-308)
--- NOTE | 2021-02-03 07:00 | PC.NURSE ---
Shift Note Frequent safety and comfort rounds continue. Orders and/or nursing care completed as indicated. Patient monitored for response to intervention and treatment(s). Education provided includes[]. Patient and/or corporate sales representative [ResponseToTeaching]. Will continue to monitor. The patient's night christian really well, and there were very little complications. The patient's secretions have become very thick, which required a lot of oral and inline suctioning. The patient did experience one episode where his heart rate hovered in the 140's for a while. Urine output was 875 mL for the shift.
--- NOTE | 2021-02-03 07:00 | XR_ITS ---
WS: [id number] Portable AP semiupright chest, 02/03/2021 Clinical Data: sob Comparison: Portable chest, 02/02/2021 Findings: The endotracheal tube, nasogastric tube and right internal jugular venous catheter remain i n same position. The patchy opacity occupying the entire left lung along with a loculated left effusi on remains the same. The surgical repair of the right fourth through eighth ribs remains the same. Th e right lung has minimal patchy opacities. Monitor leads are on the chest wall. XR/XR chest 1V portable [id number] Impression: 1. No change in multiple tubes. 2. No change in patchy left lung opacity and loculated left effusion.
[2021-02-03 07:54] LABS: Glucose Point of Care 262 mg/dL (70-110)
[2021-02-03] MEDS: propofol 1,000 MG/100 ML INJ 30.35 MG IV ×3 (07:55→15:03)
[2021-02-03] MEDS: pantoprazole 40 mg SDV IVP (08:05)
[2021-02-03] MEDS: ascorbic acid 500 mg Tablet PO ×2 (08:07→17:16)
[2021-02-03] MEDS: cholecalciferol (vitamin D3) 1,000 unit Tablet 1000 UNIT PO (08:07)
[2021-02-03] MEDS: zinc gluconate 50 mg Tablet PO (08:07)
[2021-02-03] MEDS: docusate sodium 10 mg/mL (5ml) Liq 100 MG OG-TUBE ×2 (08:07→17:16)
[2021-02-03] MEDS: polyethylene glycol 3350 Pkt 17 gm PO (08:07)
[2021-02-03] MEDS: aspirin 81 mg EC Tablet PO (08:07)
[2021-02-03] MEDS: budesonide 0.5 mg/2 mL Neb INHALATION ×2 (08:30→21:15)
--- NOTE | 2021-02-03 09:30 | PC.CHAP ---
Pastoral Care Encounter/Spiritual Assessment Type of Contact [] Declined torch heater visit [] Patient/Family/Request visit [] Outpatient visit [] Follow-up visit [] Physician referral [] Code/Alert [x] Routine visit [] Staff referral [] Actively dying [] Patient sleeping [] Family support [] [] Out of room [] Palliative care [] [] Receiving care in room [] Pre-surgical visit [] Trauma [] Long length of stay [x] ICU visit [] Other: Relational/Emotional Strength [] Patient feels connected with others/family/visitors/staff [] Distress [] Loneliness/isolation [] Abandonment Spirituality of Patient [] Person of Betina [] Attends Confucianist of their Betina [] Believes in Prayer [] Reads Bible or Episcopal materials [] There are Spiritual issues to be addressed 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 Interventions [x] Prayer [] Active listening [] Non-anxious presence [] Spiritual/emotional support [] Crisis/trauma care [] Spiritual counseling [] Bereavement support [] Provided bereavement packet [] Provided Bible/devotional materials [] Provided toy/stuffed animal, coloring book to patient or family member [] Provided Communion [] Anointing/[place] [] Salvation [x] Completed spiritual assessment [] Other: Impact on Illness or Injury [] Angry [] Fearful [] Anxious [] Often cries [] Exhaustion [] Unable to work [] Unable to attend advent [] Unable to walk/stand [] Unable to read [] Unable to drive [] Unable to eat/drink [] Unable to sleep [] Unable to be with family [] Patient intubated [] Other: Summary Time spent with patient
[2021-02-03] MEDS: FUROsemide 10 mg/mL SDV 4mL 40 MG IVP (10:16)
[2021-02-03 11:56] LABS: Glucose Point of Care 258 mg/dL (70-110)
--- NOTE | 2021-02-03 14:20 | PC.NURSE ---
Dr alcala will be performing a thoracentesis later today. Nurse called next of kin Haileeекатерина Isaacs, and received consent. consent placed in physical chart.
[2021-02-03 17:13] LABS: Glucose Point of Care 223 mg/dL (70-110)
--- NOTE | 2021-02-03 17:35 | PM.PN ---
Subjective Subjective: Interval history: Patient was seen this morning, he is off sedation, able to follow simple commands such as squeezing my fingers, he has chronic weakness on the right upper right lower extremities from his traumatic brain injury, but does move his left upper and left lower extremities, is able to nod, afebrile overnight, normotensive, weaned off Levophed, on 40% FiO2 Vitals/I&O/Wt Last Vital Signs Temp 98.2 F 02/03/21 08:30 Pulse 134 H 02/03/21 16:00 Resp 11 L 02/03/21 14:12 BP 123/72 02/03/21 16:00 Pulse Ox 93 02/03/21 16:00 02/03/21 02/03/21 02/03/21 06:59 14:59 22:59 Intake Total 1839.170 / 3038.678 277.036 / 277.036 73.852 / 350.888 Output Total 875 / 2000 1625 / 1625 Balance 964.170 / 1038.678 -1347.964 / -1347.964 73.852 / -1274.112 Weight last 48 hrs Weight 93.44 kg Weight 104.78 kg Physical Exam Narrative: EXAM NARRATIVE: Intubated, off sedated, does follow basic commands on mechanical ventilation Resp: COMMON NORMALS: normal respiratory effort, No retractions and No use of accessory muscles AUSCULTATION: diminished lung sounds on the left Cardio: COMMON NORMALS: regular rhythm, S1 normal heart sound present and S2 normal heart sound present RATE: tachycardic RHYTHM: regular rhythm HEART SOUNDS: S1 normal heart sound present and S2 normal heart sound present GI: COMMON NORMALS: Normal to inspection, nondistended, normoactive bowel sounds present INSPECTION: Yes abdominal distension AUSCULTATION: Yes Hypoactive bowel sounds present Extremity: COMMON NORMALS: no pedal edema Urinary Catheter Management^: Donaldson: Cath Placed During This Visit: yes Reason for Continuing Indwelling Catheter: Accurate Measurement of Urinary Output in Critically Ill Patients Urinary Catheter Date of Insertion: 02/01/21 Urinary Catheter Time of Insertion: 05:42 Data : 02/03/21 04:50 02/03/21 04:50 Micro: Microbiology 02/01/21 07:35 Gram Stain - Final Sputum - Endotracheal Tube Aspirate Sputum Culture - Final 02/01/21 19:30 Bacterial Antigens - Final Urine,Voided A&P Assessment and plan (1) Acute respiratory failure with hypoxemia: -Secondary to left lower lobe pneumonia, healthcare associated pneumonia -With septic shock, resolved -With underlying COPD -With evidence of underlying DIC -Rapid Covid negative, Covid PCR negative -CT angiogram of the chest shows strandy opacities and consolidation seen in the left lung base superimposed over the pleural effusion compatible with atelectasis versus left basilar pneumonia. -MRSA nares positive -WBC 14.6, neutrophilic 17.62 pro-Richard, 2.01, CRP 298 -Initial CT angiogram of the chest shows stable left pleural effusion, evolving chest x-rays especially today shows patchy left lung opacity, loculated left pleural effusion -Patient persistently has sinus tachycardia, no PE, no significant cardiac source, concerning for underlying empyema or loculated pleural effusion -Ileus present on KUB, significant stool burden Plan: -Admit to ICU -Continue intubation, mechanical ventilation, minimize FiO2, optimize PEEP -ABG 7.41, PCO2 42.5, PO2 64.6, bicarb 26.6, on 40% FiO2, 500 tidal volume PEEP of 10 -We will keep intubated today, as there is worsening patchy left lung opacity, and concerns for loculated pleural effusion -Continue propofol, fentanyl for sedation -Daily spontaneous breathing trials -Whenever patient is rotated, continues to have significant desaturations -Continue broad-spectrum antibiotic therapy, vancomycin, Primaxin, Levaquin - nebulizer treatments, budesonide, vitamin C, zinc, vitamin D, Decadron -Follow blood cultures, urine cultures, urine bacterial antigen, sputum cultur -Continue Levophed, currently off, central line in place, maintain MAP greater than 65 -Rhabdomyolysis, CPK 763, creatinine 0.6, -1 dose of Lasix today -Hyponatremia, 134 -Continue insulin sliding scale, A1c 8 -Hold off on tube feeds, as is on pressors, ileus -NSTEMI, baseline 23, 6-hour 23.76,, aspirin, statin, cardiac echo pending -EKG, telemetry monitoring showing sinus tachycardia, no evidence of atrial fibrillation, hold off on beta-kathryn therapy, as this is likely a physiologic response to sepsis, CT angiogram no evidence of pulmonary emboli, TSH within normal limits, no other significant electrolyte abnormalities, normal magnesium, I am concerned for underlying loculated pleural effusion or empyema as a source of the sinus tachycardia, have consulted Dr. Souza -Follow cardiac echocardiogram -continue home levothyroxine -CT scan abdomen pelvis shows diffuse stool throughout colon, likely secondary to multiple pain medications, KUB shows ileus, patient has not responded to multiple bowel regimens, continue bowel rest, continue MiraLAX, lactulose, milk of mag, soapsuds enema -Bilateral extremity ultrasound negative for -Start home fentanyl, - hold hydrocodone, hold gabapentin -Type 2 diabetes mellitus, Levemir 10 units, low-dose sliding scale -Donaldson catheter in place -maintain orogastric tube -Lovenox for DVT prophylaxis -Protonix for GI prophylaxis -Full code Status: Acute (2) Sinus tachycardia: Status: Acute (3) Ileus: Status: Acute (4) Healthcare-associated pneumonia: Left lower lobe, organism unknown Status: Acute (5) Sepsis without septic shock: As evidenced by leukocytosis, tachycardia, respiratory failure, lactic acidosis Status: Acute (6) Acute abdominal pain: Status: Acute (7) COPD (chronic obstructive pulmonary disease): Status: Chronic Qualifiers: COPD type: COPD with acute exacerbation Qualified Code(s): J44.1 - Chronic obstructive pulmonary disease with (acute) exacerbation (8) Diabetes mellitus, type II: Status: Chronic Qualifiers: Diabetes mellitus buttermaker continuous churn insulin use: without fpc use Diabetes mellitus complication status: without complication Qualified Code(s): E11.9 - Type 2 diabetes mellitus without complications (9) Hypertension: Status: Chronic Qualifiers: Hypertension type: unspecified Qualified Code(s): I10 - Essential (primary) hypertension (10) Hypothyroidism: Status: Chronic Qualifiers: Hypothyroidism type: acquired Qualified Code(s): E03.9 - Hypothyroidism, unspecified (11) Spastic hemiplegia: Status: Chronic Qualifiers: Hemiplegia etiology: non-cerebrovascular Hemiplegia laterality: right dominant side Qualified Code(s): G81.11 - Spastic hemiplegia affecting right dominant side (12) Chronic, continuous use of opioids: Status: Acute (13) Traumatic brain injury: --According to the custodial, he can carry a conversation, ambulates in a motorized scooter, is alert oriented x3 Status: Chronic Qualifiers: Encounter type: sequela (14) DIC (disseminated intravascular coagulation): Status: Acute (15) Rhabdomyolysis: Status: Acute Additional A&P Information Was residing in nonskilled area of [facility], anticipate disposition back to [facility] although may require skilled depending on clinical course CODE STATUS according to facility records is full code Attestations Medical Necessity Statement*: Patient requires hospitalization for acute respiratory failure secondary to left lower lobe pneumonia, healthcare associated pneumonia, septic shock, with ileus, with concerns for loculated pleural effusion Coding Level of Care Code Acute Regulatory And Compliance Technician for [facility] Diagnoses Acute respiratory failure with hypoxemia J96.01 Sinus tachycardia R00.0 Ileus K56.7 Healthcare-associated pneumonia J18.9 Sepsis without septic shock A41.9 Acute abdominal pain R10.9 COPD (chronic obstructive pulmonary disease) J44.1 COPD type: COPD with acute exacerbation Diabetes mellitus, type II E11.9 Diabetes mellitus fpc insulin use: without buttermaker continuous churn use Diabetes mellitus complication status: without complication Hypertension I10 Hypertension type: unspecified Hypothyroidism E03.9 Hypothyroidism type: acquired Spastic hemiplegia G81.11 Hemiplegia etiology: non-cerebrovascular Hemiplegia laterality: right dominant side Chronic, continuous use of opioids F11.90 Traumatic brain injury S06.9X9A Encounter type: sequela DIC (disseminated intravascular coagulation) D65 Rhabdomyolysis M62.82
--- NOTE | 2021-02-03 18:19 | PC.NUTR ---
Nutrition assessment completed for MST score of 4. TF not appropriate at this time given pressors and ileus, per MD notes. Noted pt receiving 408 kcal/day from levaquin-D5W, 801 kcal/day from propofol. If extubated, would recommend advancing diet as tolerated with PRODUCT TRAINER evaluation if needed. If TF initiated, would recommend Glucerna 1.2, starting at 10 ml/hr, increasing by 10 ml/hr q 6 hours to goal rate of 35 ml/hr to provide 1008 kcal, 50 g protein, 676 ml H2O, with additional flushes per MD discretion. Goal to be increased when propofol/D5 decreased. See full RD assesssment for further details.
--- NOTE | 2021-02-03 18:49 | PC.NURSE ---
Shift Note Frequent safety and comfort rounds continue. Orders and/or nursing care completed as indicated. Patient monitored for response to intervention and treatment. Overall uneventful shift. Patient rested in bed throughout the day. Despite multiple doses of lactulose, a soap suds enema, and a milk and molasses enema, patient has not had a bowel movement. Stomach remains distended. Plan is for a thoracentesis tonight. Consent is signed and supplies at nurses station.
[2021-02-03] MEDS: propofol 1,000 MG/100 ML INJ 24.28 MG IV ×2 (19:10→22:47)
[2021-02-03 20:27] LABS: Glucose Point of Care 271 mg/dL (70-110)
[2021-02-03] MEDS: atorvastatin 40 mg Tablet 20 MG PO (21:22)
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
[2021-02-04] VITALS (59 sets, daily range): BP systolic 116–166; BP diastolic 71–117; PULSE 120–150; RESP 15–20; TEMP 37.3–37.7; O2SAT 90–94; BMI 28.6
[2021-02-04] MEDS: levofloxacin-dextrose 5 % 750 MG/150 ML PREMIX 100 MG IV (01:59)
[2021-02-04] MEDS: propofol 1,000 MG/100 ML INJ 24.28 MG IV ×3 (01:59→09:25)
[2021-02-04] MEDS: ipratropium-albuterol 3 mL Neb INHALATION ×4 (02:47→20:14)
[2021-02-04 04:28] LABS: Basophils % 0.3 %; Eosinophils # 0.5 10^3/uL (0.0-0.8); Eosinophils % 4.1 %; Hematocrit 37.2 % (42.0-52.0); Hemoglobin 11.5 g/dL (11.7-16.6); Lymphocytes % 15.9 %; Mean Corpuscular HGB Conc 30.9 g/dL (30.0-36.0); Mean Corpuscular Hemoglobin 24.4 pg (28.0-34.0); Mean Platelet Volume 9.5 fL (7.4-10.4); Monocytes # 1.1 10^3/uL (0.2-0.9); Monocytes % 9.3 %; Neutrophils # 8.47 10^3/uL (1.8-7.7); Neutrophils % 69.3 %; Nucleated Red Blood Cells % 0.2 %; Platelet Count 414 10^3/cmm (130-400); Red Blood Count 4.71 10^6/uL (4.1-5.3); Red Cell Distribution Width 15.5 % (12.1-15.1); White Blood Count 12.2 10^3/uL (4.0-10.0)
--- NOTE | 2021-02-04 04:32 | CT_ITS ---
WS: [id number] CT CHEST TECHNIQUE: Noncontrast CT of the chest with coronal and sagittal reformatted images. CLINICAL INFORMATION: left loculated pleural effusion COMPARISON: CT January 2021 DLP: 1141.[address] scans at [facility] use at least one of these dose optimization techniques: automated e xposure control; mA and/or kV adjustment per patient size (includes targeted exams where dose is matc hed to clinical indication); or iterative reconstruction. FINDINGS: Moderate left pleural effusion with atelectasis left lower lobe. This is slightly increased from prev ious. Endotracheal tube with tip above the tiffany. Enteric tube with tip in the second portion of the duodenum. Slight pleural thickening right lower lobe with pleural plaques. Subsegmental atelectasis right lower lobe. Reactive anterior mediastinal and peribronchial lymph nodes. Mild thoracic curve. Chronic anterior wedging mid thoracic spine. No axillary lymphadenopathy. Adrena l glands are normal. Fatty atrophy of the pancreas. Fatty infiltration the liver. Chronic fixated rig ht rib fractures. CT/CT chest wo con [id number] IMPRESSION: 1. Moderate left pleural effusion with compressive atelectasis left lower lobe . This is increased slightly from previous. 2. Pleural thickening right lower lobe with pleural plaques and subsegmental a telectasis. 3. Enteric tube repositioned with tip in the second portion the duodenum. 4. Diffuse fatty infiltration of the liver. 5. No other significant changes.
[2021-02-04 04:45] LABS: Lactate (Lactic Acid level) 1.7 mmol/L (0.5-2.2)
[2021-02-04 04:56] LABS: Alanine Aminotransferase 10 U/L (0-41); Albumin Level 2.9 g/dL (3.5-5.2); Alkaline Phosphatase 78 IU/L (40-130); Anion Gap 15.9 (5-19); Aspartate Amino Transferase 17 U/L (0-40); Blood Urea Nitrogen 14 mg/dL (6-20); C Reactive Protein 211.9 mg/L (0.0-4.9); Calcium 8.3 mg/dL (8.5-10.5); Carbon Dioxide 27 mmol/L (22-29); Chloride 94 mmol/L (98-107); Globulin 4.7 g/dL (1.3-4.6); Glomerular Filtration Rate 172.6 mL/min (90-130); Glucose 274 mg/dL (65-115); INR 1.14 (0.8-1.2); NT Pro B Type Natriuretic Pept 82 pg/mL (0-125); NT Pro B Type Natriuretic Pept 85 pg/mL (0-125); Osmolality Calculated 286 mOsm/kg (285-295); Phosphorus 1.8 mg/dL (2.5-4.5); Potassium 3.9 mmol/L (3.5-5.1); Procalcitonin 1.09 ng/mL (0-0.5); Sodium 133 mmol/L (136-145); Total Bilirubin 0.3 mg/dL (0.15-1.2); Total Protein 7.6 g/dL (6.6-8.7)
[2021-02-04 05:01] LABS: ABG PH Result 7.47 (7.35-7.45); Arterial Blood Gas Hematocrit 37.1 % (42-52); Base Excess ABG 2.9 mmol/L (-2.0-2.0); Blood Gas Allen Test Pos; Blood Gas Sample Type Arterial; HCO3 ABG 26.7 mmol/L (22-26); PO2 ABG 68.4 mmHg (80.0-100.0)
[2021-02-04 05:02] LABS: Blood Gas Sample Site Radial, right; Oxygen Device VENT
[2021-02-04] MEDS: linezolid premix 600 MG/300 ML PREMIX 300 MG IV ×2 (05:10→17:12)
[2021-02-04 05:11] LABS: Fibrinogen 1069 mg/dL (174-498)
[2021-02-04] MEDS: levothyroxine 25 mcg Tablet PO (05:11)
[2021-02-04] MEDS: enoxaparin 40 mg/0.4 mL Syringe SUBCUT (05:11)
[2021-02-04 05:14] LABS: D Dimer 4.48 ug/mIFEU (0-0.59)
[2021-02-04 05:16] LABS: Partial Thromboplastin Time < 20.0 SECONDS (23.9-36.7)
[2021-02-04 05:36] LABS: Creatine Phosphokinase 611 U/L (39-308)
--- NOTE | 2021-02-04 06:00 | ECG_ITS ---
[facility] Test Date: 2021-02-04 Pat Name: Jayjay Peterson Department: Room: [facility] Gender: Male Image Scientist: : 1965 Requested By: Bijan Burk Order Number: [id number] Jalloh MD: Gonzalo Painagua M.D. Measurements Intervals [place] Rate: 123 P: 26 OH: 104 QRS: 31 QRSD: 94 T: 16 QT: 303 QTc: 435 Interpretive Statements SINUS TACHYCARDIA WITH SHORT OH INTERVAL NONSPECIFIC T-WAVE ABNORMALITY Compared to ECG 02/03/2021 06:52:53 Short OH interval now present T-wave abnormality now present Electronically Signed On 02-04-2021 20:10:03 CDT by Gonzalo Paniagua M.D. [id number]
--- NOTE | 2021-02-04 07:00 | XR_ITS ---
WS: [id number] Portable AP upright chest, 02/04/2021 Clinical Data: sob Comparison: Portable chest, 02/03/2021 Findings: The patchy opacity occupying the left lung has not changed nor has the loculated left effus ion. The right lung has minimal patchy opacity. The endotracheal tube, nasogastric tube and right int ernal jugular venous catheter remain the same. The surgical repair of the right fourth through eighth ribs has not changed. Monitor leads are on the chest wall. Monitor leads are on the chest wall. XR/XR chest 1V portable [id number] Impression: 1. No change in patchy opacity and loculated effusion of the left lung and pleu ra. 2. No change in multiple tubes.
[2021-02-04] MEDS: pantoprazole 40 mg SDV IVP (08:57)
[2021-02-04] MEDS: zinc gluconate 50 mg Tablet PO (08:57)
[2021-02-04] MEDS: cholecalciferol (vitamin D3) 1,000 unit Tablet 1000 UNIT PO (08:57)
[2021-02-04] MEDS: aspirin 81 mg EC Tablet PO (08:57)
[2021-02-04] MEDS: polyethylene glycol 3350 Pkt 17 gm PO (08:57)
[2021-02-04] MEDS: metoprolol tartrate 1 mg/1 mL SDV 5 mL 2.5 MG IVP (08:58)
[2021-02-04] MEDS: lactulose oral liq 20 gm/30 mL UDC PO ×3 (08:59→23:24)
[2021-02-04] MEDS: budesonide 0.5 mg/2 mL Neb INHALATION ×2 (09:09→20:14)
[2021-02-04] MEDS: ascorbic acid 500 mg Tablet PO ×2 (09:18→17:12)
[2021-02-04] MEDS: docusate sodium 10 mg/mL (5ml) Liq 100 MG OG-TUBE ×2 (09:19→17:13)
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
[2021-02-04] MEDS: propofol 1,000 MG/100 ML INJ 30.35 MG IV ×2 (12:43→22:57)
[2021-02-04 13:21] LABS: Glucose Point of Care 260 mg/dL (70-110)
--- NOTE | 2021-02-04 14:49 | PC.NURSE ---
0800. recd incontinent of large amt of stool, gross amt flatulence passed during clean up. abd softer to touch.
--- NOTE | 2021-02-04 14:51 | PC.NURSE ---
1015- levi. [place] fair.
--- NOTE | 2021-02-04 16:08 | PC.NURSE ---
1600-dr. duncan in. #30 c.t. inserted with pink to brown drainage.
--- NOTE | 2021-02-04 16:17 | P.OP_ITS ---
Operative Report Date of procedure: February 04, 2021 Pre-op Diagnosis: Left pleural effusion with atelectasis/ventilator dependence Post-op diagnosis: same Procedure Done: Left 32 Macedonian thoracostomy tube placement Specimens removed/disposition: 200 cc serosanguineous fluid removed Surgeon: Panchito Reeder Anesthesia: Local Condition: stable Disposition: ICU Brief History: Mr. Peterson is a 56-year-old gentleman with traumatic brain injury who was recently admitted to the emergency department with abdominal pain and progressive dyspnea and required intubation in the ER. He has developed a progressive left pleural effusion with left lower lobe atelectasis. There is concern by ultrasonography that there may be septations and loculations. I was consulted initially to consider decortication. Mr. Peterson currently is heavily sedated and orally intubated. He remains substantially tachycardic at 130 bpm and has recently been on Levophed. I have recommended initially attempt at thoracostomy tube placement to try to decompress the left lower lobe and provide reasonable drainage. Thoracotomy may ultimately be required for decortication but I would like to avoid that at this time due to his marginal status. He also is currently DNR. Consent was obtained by phone from his family members. Procedure: Procedure: The patient was placed in the supine position with the left chest slightly elevated. He currently has a fentanyl and propofol infusion in place. The entire left lateral and posterior chest was thoroughly prepped and draped. 1% lidocaine was infiltrated in the midaxillary line over the seventh rib. A #15 scalpel blade was used to incise the skin, silk stay suture was placed, followed by utilizing a small hemostat to enter the pleural space with return of small amount of serous fluid. A 32 Macedonian drain was placed. A total of 200 mL of serosanguineous fluid was collected. Chest tube was secured to the skin followed by placement of sterile dressings. Chest tube is placed to Pleur-evac suction. The patient tolerated the procedure well with stable vital signs throughout, though he remains substantially tachycardic and up to 130 bpm. We will leave chest tube to suction with planned serial chest x-rays. I conferred with my colleague, Dr. Burk, at the completion of the procedure. We will assess chest tube output and radiographic and physiologic response over the next 24 to 48 hours to determine whether we would need to proceed with formal thoracotomy.
--- NOTE | 2021-02-04 16:25 | PM.PN ---
Subjective Subjective: Interval history: Patient was seen this morning, he had a large bowel movement this morning, afebrile overnight, normotensive, no pressors have been required, is on 40% FiO2, has good urine output I had the following discussion with patient's ex- [phone], patient's daughter Shirley #[phone], evidence son [phone] -Patient's CT of the chest shows loculated pleural effusions, I discussed the case with Dr. Reeder, he recommended thoracotomy versus chest tube placement -Currently patient's DPOA is his ex-, however I have reviewed it and there is no specific mention made about his health decisions, but will await his 's DPO paperwork when she comes from home, the only DPO paperwork I have is from [facility], who initially did not even have the paperwork, eventually they found the first page, and then eventually found the second page -I discussed the case with patient's ex-, discuss his sepsis secondary to pneumonia, now her concern for loculated pleural effusion, he is clinically doing better, but he will require some form of surgical intervention for this loculated pleural effusion, discussed the options, she voices any, all questions answered, agreed to proceed with surgical intervention. I advised patient's that as she is not the next of kin but does have DPOA, I will also reach out to patient's 2 children to also get their authorization, she tells me that she did talk to 2 of her kids last night, and they also agreed with her to proceed with surgical intervention. She also mentions to me that she would like to make her DNR. She tells me that if he were to code in the surgery she does not want him resuscitated, or currently if he were to code she does not want him to be resuscitated. Discussed risk and benefits, she voiced understanding, all questions answered agreed to proceed -I also discussed the case with patient's son Rambo, he also confirms that he spoke to his mom, that they have come to agreement of about his DNR status, and come to agreement about pursuing surgery, discussed risk and benefits, voiced understanding, all question answered, agreed to proceed --I also discussed the case with patient's son Shirley, she also confirms that he spoke to her mom, that they have come to agreement of about his DNR status, and come to agreement about pursuing surgery, discussed risk and benefits, voiced understanding, all question answered, agreed to proceed Vitals/I&O/Wt Last Vital Signs Temp 99.2 F 02/04/21 04:00 Pulse 126 H 02/04/21 14:30 Resp 17 02/04/21 14:25 BP 119/72 02/04/21 14:30 Pulse Ox 94 02/04/21 14:30 02/04/21 02/04/21 02/04/21 06:59 14:59 22:59 Intake Total 817.937 / 1827.263 390.241 / 390.241 Output Total 730 / 2505 Balance 87.937 / -677.737 390.241 / 390.241 Weight last 48 hrs Weight 95.708 kg Weight 93.44 kg Physical Exam Narrative: EXAM NARRATIVE: Intubated, sedated, on mechanical ventilation Chest: COMMONS NORMALS: normal inspection of the chest Resp: COMMON NORMALS: normal respiratory effort, No retractions and No use of accessory muscles AUSCULTATION: diminished lung sounds on the left Cardio: COMMON NORMALS: regular rhythm, S1 normal heart sound present and S2 normal heart sound present RATE: tachycardic RHYTHM: regular rhythm HEART SOUNDS: S1 normal heart sound present and S2 normal heart sound present GI: COMMON NORMALS: Normal to inspection, nondistended, normoactive bowel sounds present and Soft to palpation INSPECTION: Yes abdominal distension PALPATION: Yes Soft to palpation Extremity: COMMON NORMALS: no pedal edema Urinary Catheter Management^: Donaldson: Cath Placed During This Visit: yes Reason for Continuing Indwelling Catheter: Accurate Measurement of Urinary Output in Critically Ill Patients Urinary Catheter Date of Insertion: 02/01/21 Urinary Catheter Time of Insertion: 05:42 Data : 02/04/21 04:00 02/04/21 04:00 A&P Assessment and plan (1) Acute respiratory failure with hypoxemia: -Secondary to left lower lobe pneumonia, healthcare associated pneumonia -With septic shock, resolved -With underlying COPD -With evidence of underlying DIC, resolving -Rapid Covid negative, Covid PCR negative -CT angiogram of the chest shows strandy opacities and consolidation seen in the left lung base superimposed over the pleural effusion compatible with atelectasis versus left basilar pneumonia. -MRSA nares positive -WBC 12.2, ESR 73, pro-Richard 1.09, CRP 211 -Initial CT angiogram of the chest shows stable left pleural effusion, evolving chest x-rays especially today shows patchy left lung opacity, loculated left pleural effusion -Bedside ultrasound showed loculated pleural effusions on the left -CT of the chest shows Moderate left pleural effusion with atelectasis left lower lobe. This is slightly increased from previous. Endotracheal tube with tip above the tiffany. Enteric tube with tip in the second portion of the duodenum. Slight pleural thickening right lower lobe with pleural plaques. Subsegmental atelectasis right lower lobe.Reactive anterior mediastinal and peribronchial lymph nodes.Mild thoracic curve. Chronic anterior wedging mid thoracic spine. No axillary lymphadenopathy. Adrenal glands are normal. Fatty atrophy of the pancreas. Fatty infiltration the liver. Chronic fixated right rib fractures. -Patient persistently has sinus tachycardia, no PE, no significant cardiac source, concerning for underlying empyema or loculated pleural effusion -Ileus present on KUB, significant stool burden, had a large bowel movement this morning Plan: -Admit to ICU -Continue intubation, mechanical ventilation, minimize FiO2, optimize PEEP -pH 7.47, PO2 60.4, bicarb 26.7, PCO2 37, on 40% FiO2, tidal line 500, PEEP of 6 -We will keep intubated today, as there is worsening patchy left lung opacity, and concerns for loculated pleural effusion -Possible VATS versus chest tube placement by Dr. Reeder -Continue propofol, fentanyl for sedation -Daily spontaneous breathing trials -Continue broad-spectrum antibiotic therapy, switch to Zyvox, Primaxin, Levaquin - nebulizer treatments, budesonide, vitamin C, zinc, vitamin D, Decadron -Follow blood cultures, urine cultures, urine bacterial antigen, sputum cultur -Continue Levophed, currently off, central line in place, maintain MAP greater than 65 -Rhabdomyolysis, CPK 763, creatinine 0.5, -Hyponatremia, 133, hold off on diuretics -Continue insulin sliding scale, A1c 8 -Hold off on tube feeds, as has an ileus, significantly constipated -NSTEMI, baseline 23, 6-hour 23.76,, aspirin, statin, cardiac echo pending -EKG, telemetry monitoring showing sinus tachycardia, no evidence of atrial fibrillation, hold off on beta-kathryn therapy, as this is likely a physiologic response to sepsis, CT angiogram no evidence of pulmonary emboli, TSH within normal limits, no other significant electrolyte abnormalities, normal magnesium, I am concerned for underlying loculated pleural effusion or empyema as a source of the sinus tachycardia, have consulted Dr. Souza, Dr. Reeder -Follow cardiac echocardiogram -continue home levothyroxine -CT scan abdomen pelvis shows diffuse stool throughout colon, likely secondary to multiple pain medications, KUB shows ileus, had a large bowel movement this morning, continue bowel rest, continue MiraLAX, lactulose, milk of mag, soapsuds enema -Bilateral extremity ultrasound negative for DVT -Start home fentanyl - hold hydrocodone, hold gabapentin -Type 2 diabetes mellitus, Levemir 10 units every 12 hours, moderate dose sliding scale -Donaldson catheter in place -maintain orogastric tube -Lovenox for DVT prophylaxis -Protonix for GI prophylaxis -Full code -Dr. Reeder, Dr. Hand on consult Status: Acute (2) Sinus tachycardia: Status: Acute (3) Ileus: Status: Acute (4) Healthcare-associated pneumonia: Left lower lobe, organism unknown Status: Acute (5) Sepsis without septic shock: As evidenced by leukocytosis, tachycardia, respiratory failure, lactic acidosis Status: Acute (6) Acute abdominal pain: Status: Acute (7) COPD (chronic obstructive pulmonary disease): Status: Chronic Qualifiers: COPD type: COPD with acute exacerbation Qualified Code(s): J44.1 - Chronic obstructive pulmonary disease with (acute) exacerbation (8) Diabetes mellitus, type II: Status: Chronic Qualifiers: Diabetes mellitus custodial insulin use: without custodial use Diabetes mellitus complication status: without complication Qualified Code(s): E11.9 - Type 2 diabetes mellitus without complications (9) Hypertension: Status: Chronic Qualifiers: Hypertension type: unspecified Qualified Code(s): I10 - Essential (primary) hypertension (10) Hypothyroidism: Status: Chronic Qualifiers: Hypothyroidism type: acquired Qualified Code(s): E03.9 - Hypothyroidism, unspecified (11) Spastic hemiplegia: Status: Chronic Qualifiers: Hemiplegia etiology: non-cerebrovascular Hemiplegia laterality: right dominant side Qualified Code(s): G81.11 - Spastic hemiplegia affecting right dominant side (12) Chronic, continuous use of opioids: Status: Acute (13) Traumatic brain injury: --According to the fdc, he can carry a conversation, ambulates in a motorized scooter, is alert oriented x3 Status: Chronic Qualifiers: Encounter type: sequela (14) DIC (disseminated intravascular coagulation): Status: Acute (15) Rhabdomyolysis: Status: Acute (16) Loculated pleural effusion: Status: Acute Additional A&P Information Was residing in nonskilled area of [facility], anticipate disposition back to [facility] although may require skilled depending on clinical course CODE STATUS according to facility records is full code Attestations Medical Necessity Statement*: Patient requires hospitalization for acute respiratory failure, loculated left pleural effusion, pneumonia sepsis Coding Level of Care Code Acute [place] Stitcher for [facility] Diagnoses Acute respiratory failure with hypoxemia J96.01 Sinus tachycardia R00.0 Ileus K56.7 Healthcare-associated pneumonia J18.9 Sepsis without septic shock A41.9 Acute abdominal pain R10.9 COPD (chronic obstructive pulmonary disease) J44.1 COPD type: COPD with acute exacerbation Diabetes mellitus, type II E11.9 Diabetes mellitus custodial insulin use: without custodial use Diabetes mellitus complication status: without complication Hypertension I10 Hypertension type: unspecified Hypothyroidism E03.9 Hypothyroidism type: acquired Spastic hemiplegia G81.11 Hemiplegia etiology: non-cerebrovascular Hemiplegia laterality: right dominant side Chronic, continuous use of opioids F11.90 Traumatic brain injury S06.9X9A Encounter type: sequela DIC (disseminated intravascular coagulation) D65 Rhabdomyolysis M62.82 Loculated pleural effusion J90
[2021-02-04 17:37] LABS: Glucose Point of Care 244 mg/dL (70-110)
[2021-02-04 17:38] LABS: Glucose Point of Care 276 mg/dL (70-110)
[2021-02-04 21:49] LABS: Glucose Point of Care 251 mg/dL (70-110)
[2021-02-04] MEDS: atorvastatin 40 mg Tablet 20 MG PO (22:17)
[2021-02-05] VITALS (57 sets, daily range): BP systolic 99–154; BP diastolic 55–122; PULSE 117–143; RESP 14–19; TEMP 37.3–37.5; O2SAT 91–100; BMI 29.7
[2021-02-05] MEDS: propofol 1,000 MG/100 ML INJ 30.35 MG IV ×7 (02:19→21:50)
[2021-02-05] MEDS: levofloxacin-dextrose 5 % 750 MG/150 ML PREMIX 100 MG IV (02:43)
[2021-02-05] MEDS: ipratropium-albuterol 3 mL Neb INHALATION ×4 (03:48→22:07)
[2021-02-05 04:45] LABS: ABG PCO2 38.9 mmHg (35-45); ABG PH Result 7.46 (7.35-7.45); Base Excess ABG 3.9 mmol/L (-2.0-2.0); Blood Gas Allen Test Pos; Blood Gas Sample Site Radial, right; Blood Gas Sample Type Arterial; HCO3 ABG 27.9 mmol/L (22-26); Oxygen Device VENT; PO2 ABG 80.5 mmHg (80.0-100.0)
--- NOTE | 2021-02-05 05:00 | USCV_ITS ---
Nicholas Jayjay Age: 56 Gender: M : 1965 Exam Date: 02/05/2021 06:14 Ordering Phys: Bijan Burk MD Technologist: Exam Location: [facility] [place] Indication: ON VENT SUGGESTION OF DVT HISTORY: On vent in resp failure PROCEDURES: The venous duplex Doppler examination of both lower extremities was performed in the standard fashion. The following venous structures were evaluated: common femoral vein, profunda vein, proximal portion of the greater saphenous vein, superficial femoral vein, and the popliteal vein. In addition, the posterior tibial and peroneal trunk were evaluated. Serial compression, augmentation maneuvers, and spectral Doppler flow evaluation were performed. FINDINGS: Normal 2-D Doppler and augmentation and compressibility throughout the lower extremity venous structures. Additional imaging through the proximal calf veins also reveals no thrombus. Limited evaluation of the greater saphenous vein is patent with no thrombus.. CONCLUSIONS No evidence of right lower extremity DVT. No evidence of left lower extremity DVT. Favian Mills MD (Electronically Signed) Final Date: 05 February 2021 09:20 S
[2021-02-05 05:01] LABS: Basophils # 0.1 10^3/uL (0.0-0.1); Basophils % 0.5 %; Eosinophils # 0.6 10^3/uL (0.0-0.8); Eosinophils % 5.1 %; Hematocrit 37.1 % (42.0-52.0); Hemoglobin 11.4 g/dL (11.7-16.6); Lymphocytes # 1.9 10^3/uL (0.8-4.8); Lymphocytes % 16.8 %; Mean Corpuscular HGB Conc 30.7 g/dL (30.0-36.0); Mean Corpuscular Hemoglobin 24.4 pg (28.0-34.0); Mean Corpuscular Volume 79.3 fl (80-94); Mean Platelet Volume 9.5 fL (7.4-10.4); Monocytes % 8.3 %; Neutrophils # 7.53 10^3/uL (1.8-7.7); Neutrophils % 65.7 %; Nucleated Red Blood Cells % 0 %; Platelet Count 395 10^3/cmm (130-400); Red Blood Count 4.68 10^6/uL (4.1-5.3); Red Cell Distribution Width 15.6 % (12.1-15.1); White Blood Count 11.5 10^3/uL (4.0-10.0)
[2021-02-05 05:05] LABS: Lactate (Lactic Acid level) 1.4 mmol/L (0.5-2.2)
[2021-02-05 05:13] LABS: INR 1.26 (0.8-1.2)
[2021-02-05 05:14] LABS: Partial Thromboplastin Time 33.3 SECONDS (23.9-36.7)
[2021-02-05 05:18] LABS: Alanine Aminotransferase 10 U/L (0-41); Albumin Level 2.6 g/dL (3.5-5.2); Alkaline Phosphatase 63 IU/L (40-130); Anion Gap 15.5 (5-19); Aspartate Amino Transferase 20 U/L (0-40); Blood Urea Nitrogen 9 mg/dL (6-20); Carbon Dioxide 26 mmol/L (22-29); Chloride 95 mmol/L (98-107); Globulin 4.5 g/dL (1.3-4.6); Glomerular Filtration Rate 223.3 mL/min (90-130); Glucose 245 mg/dL (65-115); Magnesium 1.9 mg/dL (1.7-2.3); Osmolality Calculated 283 mOsm/kg (285-295); Phosphorus 2.1 mg/dL (2.5-4.5); Potassium 3.5 mmol/L (3.5-5.1); Sodium 133 mmol/L (136-145); Total Bilirubin 0.4 mg/dL (0.15-1.2); Total Protein 7.1 g/dL (6.6-8.7)
[2021-02-05 05:21] LABS: Fibrinogen 866 mg/dL (174-498)
[2021-02-05] MEDS: linezolid premix 600 MG/300 ML PREMIX 300 MG IV ×2 (05:21→18:11)
[2021-02-05] MEDS: enoxaparin 40 mg/0.4 mL Syringe SUBCUT (05:21)
[2021-02-05] MEDS: levothyroxine 25 mcg Tablet PO (05:21)
[2021-02-05 05:49] LABS: NT Pro B Type Natriuretic Pept 108 pg/mL (0-125); Procalcitonin 0.76 ng/mL (0-0.5)
--- NOTE | 2021-02-05 06:00 | ECG_ITS ---
[facility] Test Date: 2021-02-05 Pat Name: Jayjay Peterson Department: Room: [facility] Gender: Male Optometric Technologist: : 1965 Requested By: Bijan Burk Order Number: [id number] Yeimi MD: Gonzalo Paniagua M.D. Measurements Intervals [place] Rate: 123 P: 20 NC: 112 QRS: 36 QRSD: 97 T: 19 QT: 342 QTc: 490 Interpretive Statements SINUS TACHYCARDIA WITH SHORT NC INTERVAL NONSPECIFIC T-WAVE ABNORMALITY Compared to ECG 02/04/2021 05:55:14 No significant changes Electronically Signed On 02-05-2021 20:39:43 CDT by Gonzalo Paniagua M.D. [email or web address]
[2021-02-05 06:05] LABS: Creatine Phosphokinase 795 U/L (39-308)
--- NOTE | 2021-02-05 07:00 | PC.NURSE ---
Shift Note Frequent safety and comfort rounds continue. Orders and/or nursing care completed as indicated. Patient monitored for response to intervention and treatment(s). Education provided includes[]. Patient and/or self pay representative [ResponseToTeaching]. Will continue to monitor. Patient had an uneventful night on the ventilator and had a total of 240 mL out of the chest tube. Urine output was 700 mL for the shift and the patient oxygenated well in the mid 90's. The patient's heart rate stayed between 110-125 for most of the night.
--- NOTE | 2021-02-05 07:00 | XR_ITS ---
WS: [id number] Portable AP semiupright chest, 02/05/2021 Clinical Data: sob Comparison: Portable chest, 02/04/2021 Findings: There is a left chest tube which has been inserted into the left pleural space. The opacity in the left lung has diminished. There still is a loculated effusion at the left lower pleural space . The endotracheal tube, nasogastric tube and right internal jugular venous catheter remain in the sa me position. The right chest shows no change from before. The heart size is at the upper limits of no rmal. Monitor leads are on the chest wall. XR/XR chest 1V portable [id number] Impression: 1. Insertion of left chest tube with decrease in opacity of left lung. 2. No change in remainder of tubes. 3. Loculated effusion still present in left lower pleura. 4. No change in appearance of right lung.
[2021-02-05 07:28] LABS: Glucose Point of Care 259 mg/dL (70-110)
[2021-02-05] MEDS: docusate sodium 10 mg/mL (5ml) Liq 100 MG OG-TUBE ×2 (08:23→17:35)
[2021-02-05] MEDS: polyethylene glycol 3350 Pkt 17 gm PO (08:24)
[2021-02-05] MEDS: pantoprazole 40 mg SDV IVP (08:24)
[2021-02-05] MEDS: lactulose oral liq 20 gm/30 mL UDC PO ×3 (08:24→23:32)
[2021-02-05] MEDS: zinc gluconate 50 mg Tablet PO (08:25)
[2021-02-05] MEDS: cholecalciferol (vitamin D3) 1,000 unit Tablet 1000 UNIT PO (08:25)
[2021-02-05] MEDS: ascorbic acid 500 mg Tablet PO ×2 (08:25→17:33)
[2021-02-05] MEDS: aspirin 81 mg EC Tablet PO (08:25)
[2021-02-05] MEDS: budesonide 0.5 mg/2 mL Neb INHALATION ×2 (09:58→22:07)
[2021-02-05 11:23] LABS: Glucose Point of Care 202 mg/dL (70-110)
--- NOTE | 2021-02-05 14:44 | PC.NUTR ---
Tube feeding recommendations: NPO day 5, noted pt receiving 408 kcal/day from levaquin-D5W, 801 kcal/day from propofol. If nutrition support is consistent with pt's goals of care, and when medically appropriate, recommend Glucerna 1.2, starting at 10 ml/hr, increasing by 10 ml/hr q 6 hours to goal rate of 35 ml/hr to provide 1008 kcal, 50 g protein, 676 ml H2O, with additional flushes per MD discretion. Goal to be increased when propofol/D5 decreased. See full RD assessment for further details.
--- NOTE | 2021-02-05 15:20 | PM.PN ---
Subjective Subjective: Interval history: This morning patient was examined, he remains intubated, sedated, 40% FiO2, T-max 100, he had an episodes of A. fib with RVR overnight, spontaneously resolved, he had a right chest tube placement by Dr. Reeder, Vitals/I&O/Wt Last Vital Signs Temp 99.5 F 02/05/21 00:00 Pulse 122 H 02/05/21 14:00 Resp 18 02/05/21 14:00 BP 139/86 02/05/21 14:00 Pulse Ox 93 02/05/21 14:00 02/05/21 02/05/21 02/05/21 06:59 14:59 22:59 Intake Total 496.306 / 1578.047 853.073 / 853.073 Output Total 970 / 1870 1870 / 1870 Balance -473.694 / -291.953 -1016.927 / -1016.927 Weight last 48 hrs Weight 99.473 kg Weight 95.708 kg Physical Exam Narrative: EXAM NARRATIVE: Intubated, sedated Chest: OTHER: Right chest tube in place, area looks clean and dry, no air leak Resp: COMMON NORMALS: normal respiratory effort, No retractions, No use of accessory muscles and clear to auscultation bilaterally AUSCULTATION: clear to auscultation bilaterally Cardio: COMMON NORMALS: regular rhythm, S1 normal heart sound present and S2 normal heart sound present RATE: tachycardic RHYTHM: regular rhythm HEART SOUNDS: S1 normal heart sound present and S2 normal heart sound present GI: COMMON NORMALS: Normal to inspection, nondistended, normoactive bowel sounds present and Soft to palpation INSPECTION: Yes abdominal distension AUSCULTATION: Yes Hypoactive bowel sounds present PALPATION: Yes Soft to palpation Extremity: COMMON NORMALS: no pedal edema Urinary Catheter Management^: Donaldson: Cath Placed During This Visit: yes Reason for Continuing Indwelling Catheter: Accurate Measurement of Urinary Output in Critically Ill Patients Urinary Catheter Date of Insertion: 02/01/21 Urinary Catheter Time of Insertion: 05:42 Data : 02/05/21 04:00 02/05/21 04:00 Micro: Microbiology 02/05/21 08:05 Gram Stain - Final Peritoneal Fluid A&P Assessment and plan (1) Acute respiratory failure with hypoxemia: -Secondary to left lower lobe pneumonia, healthcare associated pneumonia -Now concerns for loculated pleural effusion on the left -With septic shock, resolved -With underlying COPD -With evidence of underlying DIC, resolved -Rapid Covid negative, Covid PCR negative -CT angiogram of the chest shows strandy opacities and consolidation seen in the left lung base superimposed over the pleural effusion compatible with atelectasis versus left basilar pneumonia. -MRSA nares positive -Initial CT angiogram of the chest shows stable left pleural effusion, evolving chest x-rays especially today shows patchy left lung opacity, loculated left pleural effusion -Bedside ultrasound showed loculated pleural effusions on the left -CT of the chest shows Moderate left pleural effusion with atelectasis left lower lobe. This is slightly increased from previous. Endotracheal tube with tip above the tiffany. Enteric tube with tip in the second portion of the duodenum. Slight pleural thickening right lower lobe with pleural plaques. Subsegmental atelectasis right lower lobe.Reactive anterior mediastinal and peribronchial lymph nodes.Mild thoracic curve. Chronic anterior wedging mid thoracic spine. No axillary lymphadenopathy. Adrenal glands are normal. Fatty atrophy of the pancreas. Fatty infiltration the liver. Chronic fixated right rib fractures. -Status post chest tube placement by Dr. Reeder 02/04/2021, preliminary cultures pending, Gram stain no organisms, 500 clear output, to suction, no leak Plan: -Admit to ICU -Low-grade fevers overnight, CRP 247, pro-Richard 0.76 -Continue intubation, mechanical ventilation, minimize FiO2, optimize PEEP -pH 7.46, PO2 80.5, bicarb 27.9, PCO2 30.9, on 50%, tidal volume 500, PEEP of 6 -We will keep intubated today, as morning chest x-ray shows 1 loculation on the left, based on discussion with Dr. Reeder will repeat ultrasound at bedside, decide if patient can have another chest tube or a possible pigtail -Continue propofol, fentanyl for sedation -Daily spontaneous breathing trials -Continue broad-spectrum antibiotic therapy, switch to Zyvox, Primaxin, Levaquin - nebulizer treatments, budesonide, vitamin C, zinc, vitamin D, Decadron -Follow blood cultures, urine cultures, urine bacterial antigen, sputum culture, pleural culture -Continue Levophed, currently off, central line in place, maintain MAP greater than 65 -Rhabdomyolysis, CPK 795, creatinine 0.4 -Hyponatremia, 133, hold off on diuretics, +1.8 L -Continue monitor slight scale, Levemir 15 units twice daily, A1c 8 -Hold off on tube feeds, as significant constipated -NSTEMI, baseline 23, 6-hour 23.76,, aspirin, statin, cardiac echo pending -EKG, telemetry monitoring showing sinus tachycardia, did develop A. fib with RVR overnight, likely paroxysmal A. fib, start low-dose Cardizem 30 every 6, some of patient's tachycardia is likely physiologic response to his loculated pleural effusions -Follow cardiac echocardiogram -continue home levothyroxine -CT scan abdomen pelvis shows diffuse stool throughout colon, likely secondary to multiple pain medications --Has had 1 large bowel movement yesterday, continues to be a bit distended today, no bowel movement, continue bowel regimen -Bilateral extremity ultrasound negative for DVT -On home fentanyl - hold hydrocodone, hold gabapentin -Donaldson catheter in place -maintain orogastric tube -Central line in place -Left chest tube in place -Lovenox for DVT prophylaxis -Protonix for GI prophylaxis -Full code -Dr. Reeder, Datar on consult Status: Acute (2) Sinus tachycardia: Status: Acute (3) Ileus: Status: Acute (4) Healthcare-associated pneumonia: Left lower lobe, organism unknown Status: Acute (5) Sepsis without septic shock: As evidenced by leukocytosis, tachycardia, respiratory failure, lactic acidosis Status: Acute (6) Acute abdominal pain: Status: Acute (7) COPD (chronic obstructive pulmonary disease): Status: Chronic Qualifiers: COPD type: COPD with acute exacerbation Qualified Code(s): J44.1 - Chronic obstructive pulmonary disease with (acute) exacerbation (8) Diabetes mellitus, type II: Status: Chronic Qualifiers: Diabetes mellitus half-way insulin use: without business associate use Diabetes mellitus complication status: without complication Qualified Code(s): E11.9 - Type 2 diabetes mellitus without complications (9) Hypertension: Status: Chronic Qualifiers: Hypertension type: unspecified Qualified Code(s): I10 - Essential (primary) hypertension (10) Hypothyroidism: Status: Chronic Qualifiers: Hypothyroidism type: acquired Qualified Code(s): E03.9 - Hypothyroidism, unspecified (11) Spastic hemiplegia: Status: Chronic Qualifiers: Hemiplegia etiology: non-cerebrovascular Hemiplegia laterality: right dominant side Qualified Code(s): G81.11 - Spastic hemiplegia affecting right dominant side (12) Chronic, continuous use of opioids: Status: Acute (13) Traumatic brain injury: --According to the [facility], he can carry a conversation, ambulates in a motorized scooter, is alert oriented x3 Status: Chronic Qualifiers: Encounter type: sequela (14) DIC (disseminated intravascular coagulation): Status: Acute (15) Rhabdomyolysis: Status: Acute Qualifiers: Rhabdomyolysis type: non-traumatic Qualified Code(s): M62.82 - Rhabdomyolysis (16) Loculated pleural effusion: Status: Acute Additional A&P Information Was residing in nonskilled area of [facility], anticipate disposition back to [facility] although may require skilled depending on clinical course CODE STATUS according to facility records is full code Attestations Medical Necessity Statement*: Patient requires hospitalization for healthcare associate pneumonia, with loculated right pleural effusion, status post chest tube placement, intubated, sedated, requires ICU management Coding Level of Care Code Acute [place] Supervisor for [facility] Diagnoses Acute respiratory failure with hypoxemia J96.01 Sinus tachycardia R00.0 Ileus K56.7 Healthcare-associated pneumonia J18.9 Sepsis without septic shock A41.9 Acute abdominal pain R10.9 COPD (chronic obstructive pulmonary disease) J44.1 COPD type: COPD with acute exacerbation Diabetes mellitus, type II E11.9 Diabetes mellitus business associate insulin use: without half-way use Diabetes mellitus complication status: without complication Hypertension I10 Hypertension type: unspecified Hypothyroidism E03.9 Hypothyroidism type: acquired Spastic hemiplegia G81.11 Hemiplegia etiology: non-cerebrovascular Hemiplegia laterality: right dominant side Chronic, continuous use of opioids F11.90 Traumatic brain injury S06.9X9A Encounter type: sequela DIC (disseminated intravascular coagulation) D65 Rhabdomyolysis M62.82 Rhabdomyolysis type: non-traumatic Loculated pleural effusion J90
--- NOTE | 2021-02-05 17:08 | XRR_ITS ---
PROCEDURE INFORMATION: Exam: XR Chest Exam date and time: 02/05/2021 5:08 PM Age: 56 years old Clinical indication: Device placement; Chest tube; Prior surgery; Additional info: Post chest tube TECHNIQUE: Imaging protocol: XR of the chest. Views: 1 view. COMPARISON: CR XR chest 1V portable [id number] 02/05/2021 5:05 AM FINDINGS: Tubes, catheters and devices: Endotracheal tube in the midtrachea. Right neck central venous catheter in the distal SVC. Enteric tube in the stomach. Large bore left upper lateral pleural drain unchanged in position. Additional placement of left lower pleural pigtail drainage catheter. Lungs: Unremarkable. No consolidation. Pleural spaces: Moderate left pleural effusion. No pneumothorax. Heart/Mediastinum: Unremarkable. No cardiomegaly. Bones/joints: Surgical fixation of multiple right lateral ribs. XR/XR chest 1V portable [id number] IMPRESSION: Interval placement of a left side pigtail pleural drainage catheter.
[2021-02-05] MEDS: dilTIAZem 30 mg Tablet PO ×2 (17:33→22:50)
[2021-02-05 17:58] LABS: Glucose Point of Care 197 mg/dL (70-110)
--- NOTE | 2021-02-05 18:35 | NUR.SHIFT ---
Shift Note Frequent safety and comfort rounds continue. Orders and/or nursing care completed as indicated. Patient monitored for response to intervention and treatment(s). Education provided includes[]. Patient and/or medical center representative elias called and updated on overall care today. Have reposition and Dr Carrington placed left posterior chest tube under ultrasound with serous drainage ]. Will continue to monitor.
--- NOTE | 2021-02-05 18:54 | PM.ACPR ---
Procedure/Consent Time out: Time Out Performed: Yes Consent: Consent for Procedure: Emergency procedure Procedure Narrative: Name of the procedure: Left-sided chest tube placement under ultrasound guidance. Medications: Lidocaine 1% 10 mL. Consent: Emergency procedure Description of the procedure: An ultrasound was performed and a moderate sized loculated left pleural effusion was identified. Fibrinous strands were visible in the pleural space. A safe fluid pocket was identified with the ultrasound guidance and marked. The skin, subcutaneous tissue and the pleura was anesthetized with 1% lidocaine. Needle was advanced under ultrasound guidance till flash back was noted. Dark straw-colored fluid was noted. Using Seldinger technique the left chest tube was put in. The chest tube was secured with suture and transparent dressing. Complications: None. Acute Procedures Epistaxis Control: Time out performed: Yes
[2021-02-05 21:45] LABS: Glucose Point of Care 188 mg/dL (70-110)
[2021-02-05] MEDS: atorvastatin 40 mg Tablet 20 MG PO (22:49)
[2021-02-06] VITALS (43 sets, daily range): BP systolic 114–156; BP diastolic 73–103; PULSE 112–133; RESP 15–28; TEMP 36.6–37.6; O2SAT 85–94; BMI 28.5
[2021-02-06] MEDS: levofloxacin-dextrose 5 % 750 MG/150 ML PREMIX 100 MG IV (01:20)
[2021-02-06] MEDS: propofol 1,000 MG/100 ML INJ 30.35 MG IV ×3 (01:20→07:25)
[2021-02-06] MEDS: ipratropium-albuterol 3 mL Neb INHALATION ×4 (03:19→20:14)
[2021-02-06] MEDS: dilTIAZem 30 mg Tablet PO (05:17)
[2021-02-06] MEDS: enoxaparin 40 mg/0.4 mL Syringe SUBCUT (05:17)
[2021-02-06] MEDS: levothyroxine 25 mcg Tablet PO (05:18)
[2021-02-06 05:29] LABS: ABG PCO2 40.4 mmHg (35-45); ABG PH Result 7.46 (7.35-7.45); Base Excess ABG 4.7 mmol/L (-2.0-2.0); HCO3 ABG 28.9 mmol/L (22-26); PO2 ABG 66.8 mmHg (80.0-100.0)
[2021-02-06 05:31] LABS: Arterial Blood Gas Hematocrit 36.8 % (42-52)
[2021-02-06] MEDS: linezolid premix 600 MG/300 ML PREMIX 300 MG IV ×2 (05:52→18:06)
[2021-02-06 06:20] LABS: Basophils # 0.1 10^3/uL (0.0-0.1); Basophils % 0.5 %; Eosinophils # 0.4 10^3/uL (0.0-0.8); Eosinophils % 2.8 %; Hematocrit 38.1 % (42.0-52.0); Lymphocytes # 1.8 10^3/uL (0.8-4.8); Lymphocytes % 12.5 %; Mean Corpuscular HGB Conc 31.5 g/dL (30.0-36.0); Mean Corpuscular Hemoglobin 24.7 pg (28.0-34.0); Mean Corpuscular Volume 78.4 fl (80-94); Mean Platelet Volume 9.5 fL (7.4-10.4); Monocytes # 1.1 10^3/uL (0.2-0.9); Monocytes % 7.2 %; Neutrophils # 10.69 10^3/uL (1.8-7.7); Nucleated Red Blood Cells % 0 %; Platelet Count 408 10^3/cmm (130-400); Red Blood Count 4.86 10^6/uL (4.1-5.3); Red Cell Distribution Width 15.7 % (12.1-15.1); White Blood Count 14.6 10^3/uL (4.0-10.0)
[2021-02-06 06:32] LABS: INR 1.24 (0.8-1.2)
--- NOTE | 2021-02-06 07:00 | XRR_ITS ---
PROCEDURE INFORMATION: Exam: XR Chest Exam date and time: 02/06/2021 7:00 AM Age: 56 years old Clinical indication: Condition or disease; Lung condition and disease; Respiratory failure; Acute; With hypoxia (drop in body oxygenation); Patient HX: F/u resp failure. Intubated with lt chest tube. ; Additional info: SOB TECHNIQUE: Imaging protocol: XR of the chest. Views: 1 view. COMPARISON: CR XR chest 1V portable [id number] 02/05/2021 5:18 PM FINDINGS: Tubes, catheters and devices: An endotracheal tube, nasogastric tube and cysts venous catheter projects in satisfactory position. Two chest tubes are present on the left side. Multiple plates and screws transfix multiple right rib fractures. Lungs: There is increasing left basilar opacity consistent with left lower lobe atelectasis or consolidation. Pleural spaces: There is moderate loculated pleural effusion along the left lateral chest. This has not significantly changed allowing for differences in positioning. Heart/Mediastinum: Unremarkable. No cardiomegaly. Bones/joints: See Tubes, catheters and devices finding. XR/XR chest 1V portable [id number] IMPRESSION: 1. Since the previous study there is increasing left basilar opacity consistent with increasing left basilar consolidation/atelectasis. 2. Satisfactory endotracheal tube position. 3. Persistent stable loculated effusion along the left lateral chest wall.
[2021-02-06 07:11] LABS: Alanine Aminotransferase 11 U/L (0-41); Albumin Level 2.5 g/dL (3.5-5.2); Alkaline Phosphatase 66 IU/L (40-130); Anion Gap 14.4 (5-19); Aspartate Amino Transferase 23 U/L (0-40); Blood Urea Nitrogen 12 mg/dL (6-20); C Reactive Protein 182.4 mg/L (0.0-4.9); Calcium 7.9 mg/dL (8.5-10.5); Carbon Dioxide 27 mmol/L (22-29); Chloride 96 mmol/L (98-107); Globulin 4.6 g/dL (1.3-4.6); Glomerular Filtration Rate 311.3 mL/min (90-130); Glucose 211 mg/dL (65-115); Magnesium 1.8 mg/dL (1.7-2.3); Osmolality Calculated 284 mOsm/kg (285-295); Phosphorus 2.7 mg/dL (2.5-4.5); Potassium 3.4 mmol/L (3.5-5.1); Sodium 134 mmol/L (136-145); Total Bilirubin 0.4 mg/dL (0.15-1.2); Total Protein 7.1 g/dL (6.6-8.7)
[2021-02-06 07:38] LABS: NT Pro B Type Natriuretic Pept 99 pg/mL (0-125); Procalcitonin 0.62 ng/mL (0-0.5)
[2021-02-06 07:44] LABS: Blood Gas Allen Test Pos; Blood Gas Sample Site Radial, right; Blood Gas Sample Type Arterial; Oxygen Device VENT
[2021-02-06 08:00] LABS: Creatine Phosphokinase 587 U/L (39-308)
[2021-02-06 08:14] LABS: Glucose Point of Care 254 mg/dL (70-110)
[2021-02-06] MEDS: FUROsemide 10 mg/mL SDV 4mL 40 MG IVP (08:20)
[2021-02-06] MEDS: lactulose oral liq 20 gm/30 mL UDC PO (08:20)
[2021-02-06] MEDS: metoprolol tartrate 25 mg Tablet PO (08:21)
[2021-02-06] MEDS: polyethylene glycol 3350 Pkt 17 gm PO (08:21)
[2021-02-06] MEDS: pantoprazole 40 mg SDV IVP (08:21)
[2021-02-06] MEDS: potassium chloride premix 100 ML 25 MEQ IV (08:21)
[2021-02-06] MEDS: aspirin 81 mg EC Tablet PO (08:21)
[2021-02-06] MEDS: zinc gluconate 50 mg Tablet PO (08:21)
[2021-02-06] MEDS: cholecalciferol (vitamin D3) 1,000 unit Tablet 1000 UNIT PO (08:21)
[2021-02-06] MEDS: ascorbic acid 500 mg Tablet PO (08:22)
[2021-02-06] MEDS: budesonide 0.5 mg/2 mL Neb INHALATION ×2 (09:12→20:14)
[2021-02-06 09:49] LABS: Slide Review Slide Review Perform
[2021-02-06] MEDS: docusate sodium 10 mg/mL (5ml) Liq 100 MG OG-TUBE (09:53)
--- NOTE | 2021-02-06 10:02 | PC.NURSE ---
large liquid bm noted this morning linen change done and complete bath done .. chest tube intact left midaxially and left post with drainge noted serosangous . TPA infusion done to posterior chest tube , as per order
[2021-02-06] MEDS: propofol 1,000 MG/100 ML INJ 12.14 MG IV (11:49)
[2021-02-06 11:52] LABS: Glucose Point of Care 216 mg/dL (70-110)
--- NOTE | 2021-02-06 12:09 | PM.PN ---
Subjective Subjective: Interval history: The patient was seen and examined. Off of sedation currently. In the process of getting spontaneous breathing trial for extubation. Good chest tube output overnight with the TPA. However, chest x-ray this morning revealed persistence of left-sided loculated pleural effusion. There is also questionable atelectasis in the left lower lobe. Medications: Reviewed: Yes Vitals/I&O/Wt Last Vital Signs Temp 98 F 02/06/21 09:00 Pulse 113 H 02/06/21 10:00 Resp 16 02/06/21 11:15 BP 114/73 02/06/21 10:00 Pulse Ox 93 02/06/21 11:15 02/05/21 02/06/21 02/06/21 22:59 06:59 14:59 Intake Total 877.73 / 1730.803 929.603 / 2660.406 289.360 / 289.360 Output Total 980 / 2850 930 / 3780 Balance -102.27 / -1119.197 -0.397 / -1119.594 289.360 / 289.360 Weight last 48 hrs Weight 210 lb 8 oz Weight 219 lb 4.8 oz Physical Exam Narrative: EXAM NARRATIVE: General: Patient is intubated, off of sedation, easily arousable Neck: No JVD Respiratory: Auscultation: Reduced breath sounds in the left posterior hemithorax, no wheezing or rhonchi Cardiovascular: Tachycardia, regular rate and rhythm, S1-S2 present, no murmur, no peripheral edema. Abdomen: Soft, nondistended, positive bowel sound. Skin: No rash Neuro: Arousable Urinary Catheter Management^: Donaldson: Cath Placed During This Visit: yes Reason for Continuing Indwelling Catheter: Accurate Measurement of Urinary Output in Critically Ill Patients Urinary Catheter Date of Insertion: 02/01/21 Urinary Catheter Time of Insertion: 05:42 Data : 02/06/21 06:00 02/06/21 06:00 Micro: Microbiology 01/31/21 22:08 Blood Culture - Final Blood NO GROWTH AFTER 5 DAYS 01/31/21 22:00 Blood Culture - Final Blood NO GROWTH AFTER 5 DAYS 02/05/21 08:05 Gram Stain - Final Peritoneal Fluid Attestation for Other Data: I personally reviewed and interpreted the following: Other data: I have reviewed the patient laboratory, Kovalcik and neurologic data A&P Assessment and plan (1) Acute respiratory failure with hypoxia: This is a 56-year-old gentleman with acute hypoxic respiratory failure secondary to pneumonia. Currently the patient is on 40% FiO2. He is sedation has been stopped. The patient is likely going to be ready for extubation in the near future. I would recommend giving the patient some CPAP support after extubation. The patient likely has atelectasis in addition to the pneumonia. This can be titrated down to nasal cannula as tolerated. Status: Acute (2) Healthcare-associated pneumonia: The patient is currently covered by broad-spectrum antibiotic. The sputum culture was negative. The levofloxacin can be discontinued after 7 days. The patient should receive a total of 10 days of antibiotic therapy. Status: Acute (3) Loculated pleural effusion: The left-sided loculated pleural effusion is secondary to pneumonia. The patient has complex pleural effusion. The pleural fluid culture from February 05 has not grown any bacteria. Moderate amount of WBC was seen. Although the patient has good chest tube output. The loculation is unlikely to resolve. For the time being we will continue with the intrapleural TPA. Status: Acute Attestations Medical Necessity Statement*: Will defer to the primary team Coding Level of Care Code Acute Payroll Specialist for [facility] Diagnoses Acute respiratory failure with hypoxia J96.01 Healthcare-associated pneumonia J18.9 Loculated pleural effusion J90 Time Spent (min) 32
--- NOTE | 2021-02-06 12:14 | PC.NURSE ---
sedation weaning at this time to possible prepare to extubate later today..
--- NOTE | 2021-02-06 13:04 | PM.PN ---
Subjective Subjective: Interval history: This morning patient was examined, he remains intubated, sedated, off pressors, continues to have sinus tachycardia, good urine output, on 40% FiO2, patient had a second left chest tube placed by Dr. Carrington Vitals/I&O/Wt Last Vital Signs Temp 98 F 02/06/21 09:00 Pulse 113 H 02/06/21 10:00 Resp 16 02/06/21 11:15 BP 114/73 02/06/21 10:00 Pulse Ox 93 02/06/21 11:15 02/05/21 02/06/21 02/06/21 22:59 06:59 14:59 Intake Total 877.73 / 1730.803 929.603 / 2660.406 489.360 / 489.360 Output Total 980 / 2850 930 / 3780 Balance -102.27 / -1119.197 -0.397 / -1119.594 489.360 / 489.360 Weight last 48 hrs Weight 95.481 kg Weight 99.473 kg Physical Exam Narrative: EXAM NARRATIVE: Intubated, sedated, Chest: OTHER: 2 chest tubes present on the left Resp: COMMON NORMALS: normal respiratory effort, No retractions, No use of accessory muscles and clear to auscultation bilaterally AUSCULTATION: clear to auscultation bilaterally Cardio: COMMON NORMALS: regular rate, regular rhythm, S1 normal heart sound present and S2 normal heart sound present RATE: regular rate RHYTHM: regular rhythm HEART SOUNDS: S1 normal heart sound present and S2 normal heart sound present GI: COMMON NORMALS: Normal to inspection, nondistended, normoactive bowel sounds present and Soft to palpation INSPECTION: Yes abdominal distension AUSCULTATION: Yes normoactive bowel sounds PALPATION: Yes Soft to palpation Extremity: COMMON NORMALS: no pedal edema Urinary Catheter Management^: Donaldson: Cath Placed During This Visit: yes Reason for Continuing Indwelling Catheter: Accurate Measurement of Urinary Output in Critically Ill Patients Urinary Catheter Date of Insertion: 02/01/21 Urinary Catheter Time of Insertion: 05:42 Data : 02/06/21 06:00 02/06/21 06:00 Micro: Microbiology 02/05/21 08:05 Gram Stain - Final Peritoneal Fluid Body Fluid Culture - Preliminary 01/31/21 22:08 Blood Culture - Final Blood NO GROWTH AFTER 5 DAYS 01/31/21 22:00 Blood Culture - Final Blood NO GROWTH AFTER 5 DAYS A&P Assessment and plan (1) Acute respiratory failure with hypoxemia: -Secondary to left lower lobe pneumonia, healthcare associated pneumonia -With left loculated pleural effusion status post 2 chest tube placements -With septic shock, resolved -With underlying COPD -With evidence of underlying DIC, resolved -Rapid Covid negative, Covid PCR negative -CT angiogram of the chest shows strandy opacities and consolidation seen in the left lung base superimposed over the pleural effusion compatible with atelectasis versus left basilar pneumonia. -MRSA nares positive -Initial CT angiogram of the chest shows stable left pleural effusion, evolving chest x-rays especially today shows patchy left lung opacity, loculated left pleural effusion -Bedside ultrasound showed loculated pleural effusions on the left -CT of the chest shows Moderate left pleural effusion with atelectasis left lower lobe. This is slightly increased from previous. Endotracheal tube with tip above the tiffany. Enteric tube with tip in the second portion of the duodenum. Slight pleural thickening right lower lobe with pleural plaques. Subsegmental atelectasis right lower lobe.Reactive anterior mediastinal and peribronchial lymph nodes.Mild thoracic curve. Chronic anterior wedging mid thoracic spine. No axillary lymphadenopathy. Adrenal glands are normal. Fatty atrophy of the pancreas. Fatty infiltration the liver. Chronic fixated right rib fractures. -Status post chest tube placement by Dr. Reeder 02/04/2021, preliminary cultures pending, Gram stain no organisms, 500 clear output, to suction, no leak Plan: -Admit to ICU -Afebrile overnight, WBC 14.6 CRP 182, pro-Richard 0.62 -Continue spontaneous breathing trial, plan for extubation today -Continue intubation, mechanical ventilation, minimize FiO2, optimize PEEP -pH 7.46, PO2 66.8, PCO2 40.4, bicarb 20.9, on 40% FiO2, PEEP of 6, -Has 2 chest tubes placed on the left, chest x-ray this morning showing some degree persistent of loculated pleural effusion, chest tube with TPA 860 cc output, left posterior chest 730 cc output -Wean sedation -Continue broad-spectrum antibiotic therapy, continue Primaxin, Zyvox stop Levaquin - nebulizer treatments, budesonide, vitamin C, zinc, vitamin D, Decadron -Follow blood cultures, urine cultures, urine bacterial antigen, sputum culture, pleural culture so far negative -Continue Levophed, currently off, central line in place, maintain MAP greater than 65 -Rhabdomyolysis -Hyponatremia, 133 -Trial of Lasix -Continue monitor slight scale, Levemir 15 units twice daily, A1c 8 -Hold off on tube feeds, as significant constipated -NSTEMI, baseline 23, 6-hour 23.76,, aspirin, statin, cardiac echo pending -EKG, telemetry monitoring showing sinus tachycardia, did develop A. fib with RVR overnight, likely paroxysmal A. fib, switch to metoprolol 25 twice daily, some of patient's tachycardia is likely physiologic response to his loculated pleural effusions -Follow cardiac echocardiogram -continue home levothyroxine -CT scan abdomen pelvis shows diffuse stool throughout colon, likely secondary to multiple pain medications --Has had 1 large bowel movement yesterday, continues to be a bit distended today, will continue bowel regimen -Bilateral extremity ultrasound negative for DVT -Continue home fentanyl to prevent withdrawal - hold hydrocodone, hold gabapentin -Donaldson catheter in place -maintain orogastric tube -Central line in place -2 left chest tubes in place -Lovenox for DVT prophylaxis -Protonix for GI prophylaxis -Full code -Dr. Reeder, Dr. Carrington on consult Plan for today, spontaneous breathing trial, plan for extubation, continue antibiotics, 1 dose of Lasix, Status: Acute (2) Sinus tachycardia: Status: Acute (3) Ileus: Status: Acute (4) Healthcare-associated pneumonia: Left lower lobe, organism unknown Status: Acute (5) Sepsis without septic shock: As evidenced by leukocytosis, tachycardia, respiratory failure, lactic acidosis Status: Acute (6) Acute abdominal pain: Status: Acute (7) COPD (chronic obstructive pulmonary disease): Status: Chronic Qualifiers: COPD type: COPD with acute exacerbation Qualified Code(s): J44.1 - Chronic obstructive pulmonary disease with (acute) exacerbation (8) Diabetes mellitus, type II: Status: Chronic Qualifiers: Diabetes mellitus prison insulin use: without exterminator helper termite use Diabetes mellitus complication status: without complication Qualified Code(s): E11.9 - Type 2 diabetes mellitus without complications (9) Hypertension: Status: Chronic Qualifiers: Hypertension type: unspecified Qualified Code(s): I10 - Essential (primary) hypertension (10) Hypothyroidism: Status: Chronic Qualifiers: Hypothyroidism type: acquired Qualified Code(s): E03.9 - Hypothyroidism, unspecified (11) Spastic hemiplegia: Status: Chronic Qualifiers: Hemiplegia etiology: non-cerebrovascular Hemiplegia laterality: right dominant side Qualified Code(s): G81.11 - Spastic hemiplegia affecting right dominant side (12) Chronic, continuous use of opioids: Status: Acute (13) Traumatic brain injury: --According to the shelter, he can carry a conversation, ambulates in a motorized scooter, is alert oriented x3 Status: Chronic Qualifiers: Encounter type: sequela (14) DIC (disseminated intravascular coagulation): Status: Acute (15) Rhabdomyolysis: Status: Acute Qualifiers: Rhabdomyolysis type: non-traumatic Qualified Code(s): M62.82 - Rhabdomyolysis (16) Loculated pleural effusion: Status: Acute Additional A&P Information Was residing in nonskilled area of [facility], anticipate disposition back to [facility] although may require skilled depending on clinical course CODE STATUS according to facility records is full code Attestations Medical Necessity Statement*: Patient requires hospitalization for acute respiratory failure with hypoxia secondary to healthcare associate pneumonia, loculated left pleural effusion Coding Level of Care Code Acute Chemical Preparer for [facility] Diagnoses Acute respiratory failure with hypoxemia J96.01 Sinus tachycardia R00.0 Ileus K56.7 Healthcare-associated pneumonia J18.9 Sepsis without septic shock A41.9 Acute abdominal pain R10.9 COPD (chronic obstructive pulmonary disease) J44.1 COPD type: COPD with acute exacerbation Diabetes mellitus, type II E11.9 Diabetes mellitus exterminator helper termite insulin use: without prison use Diabetes mellitus complication status: without complication Hypertension I10 Hypertension type: unspecified Hypothyroidism E03.9 Hypothyroidism type: acquired Spastic hemiplegia G81.11 Hemiplegia etiology: non-cerebrovascular Hemiplegia laterality: right dominant side Chronic, continuous use of opioids F11.90 Traumatic brain injury [id number] Encounter type: sequela DIC (disseminated intravascular coagulation) D65 Rhabdomyolysis M62.82 Rhabdomyolysis type: non-traumatic Loculated pleural effusion J90
--- NOTE | 2021-02-06 13:25 | PC.NURSE ---
attempted to return elias's call when answered replied that this was her son and that she was busy now
--- NOTE | 2021-02-06 14:46 | PC.NURSE ---
extubated and placed on nc at this time .. bed elevated
--- NOTE | 2021-02-06 15:39 | PC.NURSE ---
elias call at home and given update that pt is extubated wathcing tv ect
--- NOTE | 2021-02-06 17:33 | PC.NURSE ---
large liquid bm noted twice .. linen change done responds to questions appropriatly. follows commands and responds right self with limited movement
[2021-02-06 18:14] LABS: Glucose Point of Care 171 mg/dL (70-110)
--- NOTE | 2021-02-06 18:55 | NUR.SHIFT ---
Shift Note Frequent safety and comfort rounds continue. Orders and/or nursing care completed as indicated. Patient monitored for response to intervention and treatment(s). Education provided includes[]. Patient and/or sales representative electric service [ResponseToTeaching]. Will continue to monitor. extubated today and placed on bipap tolerated well has had 3 large liquid bms today linen change and pericare done .
[2021-02-06 20:41] LABS: Glucose Point of Care 196 mg/dL (70-110)
[2021-02-07] VITALS (32 sets, daily range): BP systolic 93–143; BP diastolic 57–91; PULSE 111–144; RESP 14–36; TEMP 36.5–37.5; O2SAT 86–94; BMI 28.2
[2021-02-07] MEDS: ipratropium-albuterol 3 mL Neb INHALATION ×4 (03:15→20:21)
[2021-02-07] MEDS: morphine 4 mg/mL SDV 1 mL 2 MG IVP (03:54)
[2021-02-07] MEDS: metoprolol tartrate 1 mg/1 mL SDV 5 mL 5 MG IVP (03:56)
[2021-02-07 04:46] LABS: Basophils # 0.1 10^3/uL (0.0-0.1); Basophils % 0.4 %; Eosinophils # 0.1 10^3/uL (0.0-0.8); Eosinophils % 0.8 %; Hematocrit 37.2 % (42.0-52.0); Hemoglobin 11.8 g/dL (11.7-16.6); Lymphocytes # 2.4 10^3/uL (0.8-4.8); Lymphocytes % 15.5 %; Mean Corpuscular HGB Conc 31.7 g/dL (30.0-36.0); Mean Corpuscular Hemoglobin 24.6 pg (28.0-34.0); Mean Corpuscular Volume 77.7 fl (80-94); Mean Platelet Volume 9.7 fL (7.4-10.4); Monocytes % 6.6 %; Neutrophils % 72.2 %; Nucleated Red Blood Cells % 0 %; Platelet Count 447 10^3/cmm (130-400); Red Blood Count 4.79 10^6/uL (4.1-5.3); Red Cell Distribution Width 15.5 % (12.1-15.1); White Blood Count 15.7 10^3/uL (4.0-10.0)
[2021-02-07 05:02] LABS: INR 1.23 (0.8-1.2)
[2021-02-07 05:13] LABS: Alanine Aminotransferase 12 U/L (0-41); Albumin Level 2.6 g/dL (3.5-5.2); Alkaline Phosphatase 69 IU/L (40-130); Anion Gap 18.3 (5-19); Aspartate Amino Transferase 30 U/L (0-40); Blood Urea Nitrogen 13 mg/dL (6-20); C Reactive Protein 168.7 mg/L (0.0-4.9); Calcium 7.8 mg/dL (8.5-10.5); Carbon Dioxide 24 mmol/L (22-29); Chloride 94 mmol/L (98-107); Globulin 3.8 g/dL (1.3-4.6); Glomerular Filtration Rate 223.3 mL/min (90-130); Glucose 175 mg/dL (65-115); Magnesium 1.9 mg/dL (1.7-2.3); Osmolality Calculated 280 mOsm/kg (285-295); Phosphorus 2.4 mg/dL (2.5-4.5); Potassium 3.3 mmol/L (3.5-5.1); Sodium 133 mmol/L (136-145); Total Bilirubin 0.5 mg/dL (0.15-1.2); Total Protein 6.4 g/dL (6.6-8.7)
[2021-02-07 05:37] LABS: NT Pro B Type Natriuretic Pept 131 pg/mL (0-125); Procalcitonin 0.47 ng/mL (0-0.5)
[2021-02-07 05:48] LABS: Slide Review Slide Review Perform
[2021-02-07] MEDS: enoxaparin 40 mg/0.4 mL Syringe SUBCUT (05:55)
[2021-02-07] MEDS: linezolid premix 600 MG/300 ML PREMIX 300 MG IV ×2 (05:56→18:04)
[2021-02-07 06:26] LABS: Creatine Phosphokinase 878 U/L (39-308)
--- NOTE | 2021-02-07 07:00 | XRR_ITS ---
PROCEDURE INFORMATION: Exam: XR Chest Exam date and time: 02/07/2021 7:00 AM Age: 56 years old Clinical indication: Dyspnea; Additional info: SOB TECHNIQUE: Imaging protocol: XR of the chest. Views: 1 view. Total images: 1 COMPARISON: CR (CHEST, ) 02/06/2021 5:18 AM FINDINGS: Tubes, catheters and devices: Two left-sided chest tubes unchanged. A right internal jugular central venous catheter is present, with its tip overlying the region of the superior vena cava and unchanged from prior exam. There has been interval removal of the endotracheal tube. There has been interval removal of the enteric tube. Lungs: Improving left pleuroparenchymal disease. Stable right pleuroparenchymal disease. Pleural spaces: No pneumothorax. No pneumothorax. Heart/Mediastinum: Heart size is stable when compared to the prior exam. Bones/joints: Unremarkable. Soft tissues: Extensive post surgical changes noted to the right chest unchanged. XR/XR chest 1V portable [id number] IMPRESSION: 1. Improving left pleuroparenchymal disease. 2. Stable right pleuroparenchymal disease.
[2021-02-07 07:37] LABS: Glucose Point of Care 223 mg/dL (70-110)
[2021-02-07] MEDS: pantoprazole 40 mg SDV IVP (08:35)
[2021-02-07] MEDS: budesonide 0.5 mg/2 mL Neb INHALATION ×2 (09:23→20:21)
[2021-02-07 11:16] LABS: Glucose Point of Care 129 mg/dL (70-110)
--- NOTE | 2021-02-07 14:38 | PC.NUTR ---
Nutrition follow up: NPO day 7. Pt extubated and tolerating ice chips, per nurse. RELIEF SALESPERSON eval pending. Recommend advance diet as tolerated pending RELIEF SALESPERSON recommendations, and encourage pt to increase intake gradually, given 7 days of no po intake. See full RD assessment for further details.
--- NOTE | 2021-02-07 14:55 | PC.SLP ---
The patient was not able to participate in any dysphagia evaluation earlier due to decline in respiratory status and need to be placed on BiPAP. BUILDING INSULATION SUPERVISOR will follow up with the patient, at a later time.
--- NOTE | 2021-02-07 15:03 | XRR_ITS ---
PROCEDURE INFORMATION: Exam: XR Chest Exam date and time: 02/07/2021 3:03 PM Age: 56 years old Clinical indication: Other: Hypoxemia TECHNIQUE: Imaging protocol: XR of the chest. Views: 1 view. COMPARISON: CR (CHEST, ) 02/07/2021 5:29 AM FINDINGS: Tubes, catheters and devices: Chest tubes in the upper and lower left hemithorax are stable in position. Right IJ central line stable in position with the tip at the cavoatrial junction. Lungs: Improving aeration in the right and left lower lobes with residual patchy atelectasis or pneumonia. Pleural spaces: Lateral left pleural thickening versus pleural effusion is stable. Heart/Mediastinum: Stable mild enlargement of the cardiac silhouette. Mediastinal contours are unremarkable. Bones/joints: Stable changes consistent with multiple right rib fracture repairs. XR/XR chest 1V portable [id number] IMPRESSION: 1. Improving aeration in the right and left lower lobes with residual patchy atelectasis or pneumonia. 2. Lateral left pleural thickening versus pleural effusion is stable. 3. Incidental/nonacute findings are listed in the report.
[2021-02-07] MEDS: FUROsemide 10 mg/mL SDV 4mL 40 MG IVP (15:31)
[2021-02-07 17:42] LABS: Glucose Point of Care 189 mg/dL (70-110)
--- NOTE | 2021-02-07 17:48 | P.PN_ITS ---
Subjective Subjective: Interval history: Patient was successfully extubated yesterday, onto CPAP, followed some commands, Patient was seen this morning, he was kept on CPAP overnight, currently on 2 to 3 L nasal cannula, he did have episodes of agitation overnight, his fentanyl patch excellently was removed overnight also this morning, he is alert to person, not to place, not to time, he does follow simple commands, he knows his name, he knows that he had a traumatic brain injury, he tells me that he is weakness is right up her arm, right lower extremity, is a bit drowsy this morning, afebrile overnight, continues to have sinus tachycardia In the afternoon, patient had episodes of shortness of breath, requiring placement on BiPAP, received Lasix therapy does follow simple commands Vitals/I&O/Wt Last Vital Signs Temp 99.1 F 02/07/21 16:00 Pulse 125 H 02/07/21 17:17 Resp 18 02/07/21 17:17 BP 121/86 02/07/21 16:00 Pulse Ox 93 02/07/21 17:17 02/07/21 02/07/21 02/07/21 06:59 14:59 22:59 Intake Total 300 / 1244.615 465.3566 / 664.0909 Output Total 725 / 728 350 / 350 Balance -425 / 516.763 578.2412 / 664.0909 -350 / 314.0909 Weight last 48 hrs Weight 94.432 kg Weight 95.481 kg Physical Exam Const: COMMON NORMALS: no acute distress and alert EXAM LIMITATIONS: altered mental status ORIENTATION/CONSCIOUSNESS: Yes awake, Yes oriented to person and Yes confused; not oriented to place and not oriented to time Resp: COMMON NORMALS: normal respiratory effort, No retractions and No use of accessory muscles AUSCULTATION: crackles Cardio: COMMON NORMALS: regular rhythm, S1 normal heart sound present and S2 normal heart sound present RATE: tachycardic RHYTHM: regular rhythm HEART SOUNDS: S1 normal heart sound present and S2 normal heart sound present GI: COMMON NORMALS: Normal to inspection, nondistended, normoactive bowel sounds present and Soft to palpation PALPATION: Yes Soft to palpation Extremity: COMMON NORMALS: no pedal edema Neuro: SENSORIUM/ORIENTATION: Yes alert, Yes oriented to person, No oriented to place and No oriented to time Psych: COMMON NORMALS: mental status grossly normal Urinary Catheter Management^: Donaldson: Cath Placed During This Visit: yes Reason for Continuing Indwelling Catheter: Accurate Measurement of Urinary Output in Critically Ill Patients Urinary Catheter Date of Insertion: 02/01/21 Urinary Catheter Time of Insertion: 05:42 Data : 02/07/21 04:30 02/07/21 04:30 Micro: Microbiology 02/05/21 08:05 Gram Stain - Final Peritoneal Fluid Body Fluid Culture - Preliminary A&P Assessment and plan (1) Acute respiratory failure with hypoxemia: -Secondary to left lower lobe pneumonia, healthcare associated pneumonia -With left loculated pleural effusion status post 2 chest tube placements -Extubated 02/06/2021 -With septic shock, resolved -With underlying COPD -With evidence of underlying DIC, resolved -Rapid Covid negative, Covid PCR negative -CT angiogram of the chest shows strandy opacities and consolidation seen in the left lung base superimposed over the pleural effusion compatible with atelectasis versus left basilar pneumonia. -MRSA nares positive -Initial CT angiogram of the chest shows stable left pleural effusion, evolving chest x-rays especially today shows patchy left lung opacity, loculated left pleural effusion -Bedside ultrasound showed loculated pleural effusions on the left -CT of the chest shows Moderate left pleural effusion with atelectasis left lower lobe. This is slightly increased from previous. Endotracheal tube with tip above the tiffany. Enteric tube with tip in the second portion of the duodenum. Slight pleural thickening right lower lobe with pleural plaques. Subsegmental atelectasis right lower lobe.Reactive anterior mediastinal and peribronchial lymph nodes.Mild thoracic curve. Chronic anterior wedging mid thoracic spine. No axillary lymphadenopathy. Adrenal glands are normal. Fatty atrophy of the pancreas. Fatty infiltration the liver. Chronic fixated right rib fractures. -Status post chest tube placement by Dr. Reeder 02/04/2021, preliminary cultures pending, Gram stain no organisms, to suction, no leak Plan: -Currently admitted in ICU -Continue BiPAP therapy for now -Has 2 chest tubes placed on the left, chest x-ray improvement in left loculated pleural effusion, chest tube, monitor output, last dose of TPA tomorrow -Continue broad-spectrum antibiotic therapy, continue Primaxin, Zyvox - nebulizer treatments, budesonide, vitamin C, zinc, vitamin D -Follow blood cultures, urine cultures, urine bacterial antigen, sputum culture, pleural culture so far negative -Continue Levophed, currently off, central line in place, maintain MAP greater than 65 -Rhabdomyolysis, 878 -Hyponatremia,133 -Potassium 3.3, will replace -Trial of Lasix this evening -Continue monitor slight scale, Levemir 15 units twice daily, A1c 8 -Evaluated by speech therapy, mechanical soft diet, however given his change in mentation and shortness of breath, continue BiPAP keep n.p.o. for now -NSTEMI, baseline 23, 6-hour 23.76,, aspirin, statin -EKG, telemetry monitoring showing sinus tachycardia, did develop paroxysmal A. fib with RVR overnight, likely paroxysmal A. fib, switch to metoprolol 50 twice daily, some of patient's tachycardia is likely physiologic response to his loculated pleural effusions which are causing some degree of fibrosis to the diaphragm and chest wall -continue home levothyroxine -CT scan abdomen pelvis shows diffuse stool throughout colon, likely secondary to multiple pain medications -Continues to have good bowel movements, change lactulose to as needed -Bilateral extremity ultrasound negative for DVT -Continue home fentanyl to prevent withdrawal - hold hydrocodone, hold gabapentin -Donaldson catheter in place -On mechanical soft diet, -Central line in place -2 left chest tubes in place -Lovenox for DVT prophylaxis -Protonix for GI prophylaxis -Full code -Dr. Reeder, Dr. Carrington on consult Plan for today, continue BiPAP, continue antibiotics, monitor clinically, Status: Acute (2) Sinus tachycardia: Status: Acute (3) Ileus: Status: Acute (4) Healthcare-associated pneumonia: Left lower lobe, organism unknown Status: Acute (5) Sepsis without septic shock: As evidenced by leukocytosis, tachycardia, respiratory failure, lactic acidosis Status: Acute (6) Acute abdominal pain: Status: Acute (7) COPD (chronic obstructive pulmonary disease): Status: Chronic Qualifiers: COPD type: COPD with acute exacerbation Qualified Code(s): J44.1 - Chronic obstructive pulmonary disease with (acute) exacerbation (8) Diabetes mellitus, type II: Status: Chronic Qualifiers: Diabetes mellitus mcc insulin use: without laborer marine terminal use Diabetes mellitus complication status: without complication Qualified Code(s): E11.9 - Type 2 diabetes mellitus without complications (9) Hypertension: Status: Chronic Qualifiers: Hypertension type: unspecified Qualified Code(s): I10 - Essential (primary) hypertension (10) Hypothyroidism: Status: Chronic Qualifiers: Hypothyroidism type: acquired Qualified Code(s): E03.9 - Hypothyroidism, unspecified (11) Spastic hemiplegia: Status: Chronic Qualifiers: Hemiplegia etiology: non-cerebrovascular Hemiplegia laterality: right dominant side Qualified Code(s): G81.11 - Spastic hemiplegia affecting right dominant side (12) Chronic, continuous use of opioids: Status: Acute (13) Traumatic brain injury: --According to the [facility], he can carry a conversation, ambulates in a motorized scooter, is alert oriented x3 Status: Chronic Qualifiers: Encounter type: sequela (14) DIC (disseminated intravascular coagulation): Status: Acute (15) Rhabdomyolysis: Status: Acute Qualifiers: Rhabdomyolysis type: non-traumatic Qualified Code(s): M62.82 - Rhabdomyolysis (16) Loculated pleural effusion: Status: Acute Additional A&P Information Was residing in nonskilled area of [facility], anticipate disposition back to [facility] although may require skilled depending on clinical course CODE STATUS according to facility records is full code Attestations Medical Necessity Statement*: Requires hospitalization for acute respiratory failure secondary to pneumonia, loculated pleural effusions, now requiring BiPAP, Coding Level of Care Code Acute Lab Rn for [facility] Diagnoses Acute respiratory failure with hypoxemia J96.01 Sinus tachycardia R00.0 Ileus K56.7 Healthcare-associated pneumonia J18.9 Sepsis without septic shock A41.9 Acute abdominal pain R10.9 COPD (chronic obstructive pulmonary disease) J44.1 COPD type: COPD with acute exacerbation Diabetes mellitus, type II E11.9 Diabetes mellitus mcc insulin use: without laborer marine terminal use Diabetes mellitus complication status: without complication Hypertension I10 Hypertension type: unspecified Hypothyroidism E03.9 Hypothyroidism type: acquired Spastic hemiplegia G81.11 Hemiplegia etiology: non-cerebrovascular Hemiplegia laterality: right dominant side Chronic, continuous use of opioids F11.90 Traumatic brain injury S06.9X9A Encounter type: sequela DIC (disseminated intravascular coagulation) D65 Rhabdomyolysis M62.82 Rhabdomyolysis type: non-traumatic Loculated pleural effusion J90
--- NOTE | 2021-02-07 18:52 | PC.NURSE ---
Shift Note Frequent safety and comfort rounds continue. Orders and/or nursing care completed as indicated. Patient monitored for response to intervention and treatment(s). Education provided includes medication and reason for hospitalization. Patient will need reinforcement. Patient is only oriented to self. Sometimes can give a correct answer for orientation, but it is not consistent. Patient as able to get up to side of bed with PT. Patient had a swallow study today.
[2021-02-07 21:37] LABS: Glucose Point of Care 173 mg/dL (70-110)
[2021-02-08] VITALS (39 sets, daily range): BP systolic 101–140; BP diastolic 64–86; PULSE 106–135; RESP 9–32; TEMP 36.3–37.6; O2SAT 87–94; BMI 28.2
[2021-02-08] MEDS: morphine 4 mg/mL SDV 1 mL 2 MG IVP ×2 (01:04→08:52)
[2021-02-08] MEDS: ipratropium-albuterol 3 mL Neb INHALATION ×4 (02:48→21:30)
[2021-02-08 05:00] LABS: ABG PCO2 40.9 mmHg (35-45); ABG PH Result 7.52 (7.35-7.45); Arterial Blood Gas Hematocrit 36.3 % (42-52); Base Excess ABG 9.9 mmol/L (-2.0-2.0); Blood Gas Allen Test Pos; Blood Gas Operator Identificat JB; Blood Gas Sample Site Radial, left; Blood Gas Sample Type Arterial; HCO3 ABG 33.6 mmol/L (22-26)
[2021-02-08 05:04] LABS: Basophils # 0.1 10^3/uL (0.0-0.1); Basophils % 0.4 %; Eosinophils # 0.2 10^3/uL (0.0-0.8); Eosinophils % 1.6 %; Hematocrit 35.8 % (42.0-52.0); Hemoglobin 11.1 g/dL (11.7-16.6); Lymphocytes # 2.9 10^3/uL (0.8-4.8); Lymphocytes % 21.9 %; Mean Corpuscular Hemoglobin 24.3 pg (28.0-34.0); Mean Corpuscular Volume 78.5 fl (80-94); Mean Platelet Volume 9.9 fL (7.4-10.4); Monocytes # 1.1 10^3/uL (0.2-0.9); Monocytes % 8.5 %; Neutrophils # 8.59 10^3/uL (1.8-7.7); Neutrophils % 64.2 %; Nucleated Red Blood Cells % 0.1 %; Platelet Count 434 10^3/cmm (130-400); Red Blood Count 4.56 10^6/uL (4.1-5.3); Red Cell Distribution Width 15.8 % (12.1-15.1); White Blood Count 13.4 10^3/uL (4.0-10.0)
[2021-02-08 05:23] LABS: INR 1.23 (0.8-1.2)
[2021-02-08 05:28] LABS: NT Pro B Type Natriuretic Pept 118 pg/mL (0-125); Procalcitonin 0.38 ng/mL (0-0.5)
[2021-02-08] MEDS: linezolid premix 600 MG/300 ML PREMIX 300 MG IV ×2 (05:33→17:38)
[2021-02-08] MEDS: enoxaparin 40 mg/0.4 mL Syringe SUBCUT (05:33)
[2021-02-08 05:37] LABS: Alanine Aminotransferase 14 U/L (0-41); Albumin Level 2.4 g/dL (3.5-5.2); Alkaline Phosphatase 62 IU/L (40-130); Anion Gap 12.2 (5-19); Aspartate Amino Transferase 28 U/L (0-40); Blood Urea Nitrogen 15 mg/dL (6-20); C Reactive Protein 108.8 mg/L (0.0-4.9); Calcium 7.8 mg/dL (8.5-10.5); Carbon Dioxide 31 mmol/L (22-29); Chloride 97 mmol/L (98-107); Globulin 4.3 g/dL (1.3-4.6); Glomerular Filtration Rate 311.3 mL/min (90-130); Glucose 148 mg/dL (65-115); Magnesium 1.8 mg/dL (1.7-2.3); NT Pro B Type Natriuretic Pept 107 pg/mL (0-125); Osmolality Calculated 288 mOsm/kg (285-295); Phosphorus 2.9 mg/dL (2.5-4.5); Potassium 3.2 mmol/L (3.5-5.1); Sodium 137 mmol/L (136-145); Total Bilirubin 0.4 mg/dL (0.15-1.2); Total Protein 6.7 g/dL (6.6-8.7)
[2021-02-08 05:39] LABS: Creatine Phosphokinase 318 U/L (39-308)
[2021-02-08 06:12] LABS: Slide Review Slide Review Perform
--- NOTE | 2021-02-08 07:00 | XRR_ITS ---
PROCEDURE INFORMATION: Exam: XR Chest Exam date and time: 02/08/2021 7:00 AM Age: 56 years old Clinical indication: Dyspnea; Additional info: SOB TECHNIQUE: Imaging protocol: XR of the chest. Views: 1 view. COMPARISON: CR (CHEST, ) 02/07/2021 3:12 PM FINDINGS: Tubes, catheters and devices: Left-sided chest tubes remain in satisfactory position. Right IJ approach central line is in satisfactory position, with distal tip in the RA. Lungs: Mildly prominent lung markings, in association with small bilateral pleural effusions and slight haziness of the lungs, suggestive of pulmonary congestion. Pneumonia should be excluded clinically. No pneumothorax. Pleural spaces: See Lungs finding. Heart/Mediastinum: Stable cardiomediastinal silhouette. Bones/joints: Fixation plates noted in multiple right-sided ribs. XR/XR chest 1V portable [id number] IMPRESSION: Imaging findings suggestive of pulmonary congestion with small bilateral pleural effusions. Pneumonia should be excluded clinically.
[2021-02-08 07:16] LABS: Glucose Point of Care 213 mg/dL (70-110)
[2021-02-08 07:28] LABS: Lactate (Lactic Acid level) 1.3 mmol/L (0.5-2.2)
--- NOTE | 2021-02-08 08:46 | PC.CHAP ---
Pastoral Care Encounter/Spiritual Assessment Type of Contact [] Declined atomic physics teacher visit [] Patient/Family/Request visit [] Outpatient visit [] Follow-up visit [] Physician referral [] Code/Alert [x] Routine visit [] Staff referral [] Actively dying [] Patient sleeping [] Family support [] [] Out of room [] Palliative care [] [] Receiving care in room [] Pre-surgical visit [] Trauma [] Long length of stay [x] ICU visit [x] Other: oxygen mask... coloring better.. Relational/Emotional Strength [] Patient feels connected with others/family/visitors/staff [] Distress [] Loneliness/isolation [] Abandonment Spirituality of Patient [] Person of Betina [] Attends Scientologist of their Betina [] Believes in Prayer [] Reads Bible or Zoroastrian materials [] There are Spiritual issues to be addressed Learning Facilitator Interventions [x] Prayer [] Active listening [] Non-anxious presence [] Spiritual/emotional support [] Crisis/trauma care [] Spiritual counseling [] Bereavement support [] Provided bereavement packet [] Provided Bible/devotional materials [] Provided toy/stuffed animal, coloring book to patient or family member [] Provided Communion [] Anointing/[place] [] Salvation [x] Completed spiritual assessment [] Other: Impact on Illness or Injury [] Angry [] Fearful [] Anxious [] Often cries [] Exhaustion [] Unable to work [] Unable to attend scientologist [] Unable to walk/stand [] Unable to read [] Unable to drive [] Unable to eat/drink [] Unable to sleep [] Unable to be with family [] Patient intubated [] Other: Summary Time spent with patient
[2021-02-08] MEDS: metoprolol tartrate 1 mg/1 mL SDV 5 mL 5 MG IVP (08:52)
--- NOTE | 2021-02-08 09:01 | PC.NURSE ---
m.s. given in preparation to instill alteplase. pharm. notified of need for drug.
[2021-02-08] MEDS: budesonide 0.5 mg/2 mL Neb INHALATION ×2 (09:07→21:30)
[2021-02-08] MEDS: nystatin powder 15 gm Btl 1 APPLIC TOPICAL ×2 (09:16→17:44)
[2021-02-08] MEDS: pantoprazole 40 mg SDV IVP (09:39)
--- NOTE | 2021-02-08 09:44 | PC.NURSE ---
10cc saline flushed prior to instilling tpa, 50ml. tpa instilled, then pigtail flushed. cap returned, pig tail clamped both chest tubes clamped prior to instillation of tpa. then unclamped when procedure over. levi. fair. c/o some pain with instillations.
--- NOTE | 2021-02-08 10:23 | PC.NURSE ---
0700-recd alert somewhat confused. voice weak
[2021-02-08 10:56] LABS: Glucose Point of Care 137 mg/dL (70-110)
--- NOTE | 2021-02-08 12:56 | PC.NURSE ---
1045-no change in conditioned.
--- NOTE | 2021-02-08 14:06 | PC.NURSE ---
pt. refused shave.
--- NOTE | 2021-02-08 15:15 | P.PN_ITS ---
Subjective Subjective: Interval history: Patient was seen and examined this morning.Currently he is saturating well on HHFONC @ 50 Ls AND 60% FIO2 . Left upper lateral chest tube Negligible drain age. Left posterior pigtail drain 700 cc bloody drainage. Medications: Reviewed: Yes Medication Review Details: I personally reviewed home medication list and medications received day of admission thus far. Vitals/I&O/Wt Last Vital Signs Temp 97.3 F L 02/08/21 13:00 Pulse 123 H 02/08/21 14:00 Resp 28 H 02/08/21 14:00 BP 129/81 02/08/21 14:00 Pulse Ox 89 L 02/08/21 13:28 02/08/21 02/08/21 02/08/21 06:59 14:59 22:59 Intake Total 100 / 1219.0909 555 / 555 Output Total 490 / 1760 Balance -390 / -540.9091 555 / 555 Weight last 48 hrs Weight 94.432 kg Weight 94.432 kg Physical Exam 2 Narrative: EXAM NARRATIVE: Alert and awake follows Command. HENMT: COMMON NORMALS: normocephalic and atraumatic HEAD & SCALP: normocephalic and atraumatic Resp: OTHER: Diminished air entry at bases Cardio: COMMON NORMALS: regular rate, regular rhythm, S1 normal heart sound present, S2 normal heart sound present, No gallops present (Cardio), No murmurs present (Cardio), No rub (Cardio) and Peripheral pulses 2+ throughout RATE: regular rate RHYTHM: regular rhythm HEART SOUNDS: S1 normal heart sound present and S2 normal heart sound present PERIPHERAL PULSES: Peripheral pulses 2+ throughout GI: COMMON NORMALS: Normal to inspection, nondistended, normoactive bowel sounds present, Soft to palpation, non-tender, No hepatosplenomegaly present and no masses AUSCULTATION: Yes normoactive bowel sounds PALPATION: Yes Soft to palpation and Yes No hepatosplenomegaly present RECTAL EXAM: Yes deferred Extremity: COMMON NORMALS: no clubbing, cyanosis or edema and no pedal edema Urinary Catheter Management^: Donaldson: Cath Placed During This Visit: yes Reason for Continuing Indwelling Catheter: Accurate Measurement of Urinary Output in Critically Ill Patients Urinary Catheter Date of Insertion: 02/01/21 Urinary Catheter Time of Insertion: 05:42 Data : 02/08/21 04:00 02/08/21 04:00 A&P Assessment and plan (1) Acute respiratory failure with hypoxemia: -Secondary to left lower lobe pneumonia, healthcare associated pneumonia -With left loculated pleural effusion status post 2 chest tube placements -Extubated 02/06/2021 -With septic shock, resolved -With underlying COPD -With evidence of underlying DIC, resolved -Rapid Covid negative, Covid PCR negative -CT angiogram of the chest shows strandy opacities and consolidation seen in the left lung base superimposed over the pleural effusion compatible with atelectasis versus left basilar pneumonia. -MRSA nares positive -Initial CT angiogram of the chest shows stable left pleural effusion, evolving chest x-rays especially today shows patchy left lung opacity, loculated left pleural effusion -Bedside ultrasound showed loculated pleural effusions on the left -CT of the chest shows Moderate left pleural effusion with atelectasis left lower lobe. This is slightly increased from previous. Endotracheal tube with tip above the tiffany. Enteric tube with tip in the second portion of the duodenum. Slight pleural thickening right lower lobe with pleural plaques. Subsegmental atelectasis right lower lobe.Reactive anterior mediastinal and peribronchial lymph nodes.Mild thoracic curve. Chronic anterior wedging mid thoracic spine. No axillary lymphadenopathy. Adrenal glands are normal. Fatty atrophy of the pancreas. Fatty infiltration the liver. Chronic fixated right rib fractures. -Status post chest tube placement by Dr. Reeder 02/04/2021, preliminary cultures pending, Gram stain no organisms, to suction, no leak Plan: -Currently admitted in ICU -Continue BiPAP therapy for now -Has 2 chest tubes placed on the left, chest x-ray improvement in left loculated pleural effusion, chest tube, monitor output, last dose of TPA tomorrow -Continue broad-spectrum antibiotic therapy, continue Primaxin, Zyvox - nebulizer treatments, budesonide, vitamin C, zinc, vitamin D -Follow blood cultures, urine cultures, urine bacterial antigen, sputum culture, pleural culture so far negative -Continue Levophed, currently off, central line in place, maintain MAP greater than 65 -Rhabdomyolysis, 878 -Hyponatremia,133 -Potassium 3.3, will replace -Trial of Lasix this evening -Continue monitor slight scale, Levemir 15 units twice daily, A1c 8 -Evaluated by speech therapy, mechanical soft diet, however given his change in mentation and shortness of breath, continue BiPAP keep n.p.o. for now -NSTEMI, baseline 23, 6-hour 23.76,, aspirin, statin -EKG, telemetry monitoring showing sinus tachycardia, did develop paroxysmal A. fib with RVR overnight, likely paroxysmal A. fib, switch to metoprolol 50 twice daily, some of patient's tachycardia is likely physiologic response to his loculated pleural effusions which are causing some degree of fibrosis to the diaphragm and chest wall -continue home levothyroxine -CT scan abdomen pelvis shows diffuse stool throughout colon, likely secondary to multiple pain medications -Continues to have good bowel movements, change lactulose to as needed -Bilateral extremity ultrasound negative for DVT -Continue home fentanyl to prevent withdrawal - hold hydrocodone, hold gabapentin -Donaldson catheter in place -On mechanical soft diet, -Central line in place -2 left chest tubes in place -Lovenox for DVT prophylaxis -Protonix for GI prophylaxis -Full code -Dr. Reeder, Dr. Carrington on consult Plan for today, continue BiPAP, continue antibiotics, monitor clinically, Status: Acute (2) Sinus tachycardia: Status: Acute (3) Ileus: Status: Acute (4) Healthcare-associated pneumonia: Left lower lobe, organism unknown Status: Acute (5) Sepsis without septic shock: As evidenced by leukocytosis, tachycardia, respiratory failure, lactic acidosis Status: Acute (6) Acute abdominal pain: Status: Acute (7) COPD (chronic obstructive pulmonary disease): Status: Chronic Qualifiers: COPD type: COPD with acute exacerbation Qualified Code(s): J44.1 - Chronic obstructive pulmonary disease with (acute) exacerbation (8) Diabetes mellitus, type II: Status: Chronic Qualifiers: Diabetes mellitus termination clerk insulin use: without half-way use Diabetes mellitus complication status: without complication Qualified Code(s): E11.9 - Type 2 diabetes mellitus without complications (9) Hypertension: Status: Chronic Qualifiers: Hypertension type: unspecified Qualified Code(s): I10 - Essential (primary) hypertension (10) Hypothyroidism: Status: Chronic Qualifiers: Hypothyroidism type: acquired Qualified Code(s): E03.9 - Hypothyroidis m, unspecified (11) Spastic hemiplegia: Status: Chronic Qualifiers: Hemiplegia etiology: non-cerebrovascular Hemiplegia laterality: right dominant side Qualified Code(s): G81.11 - Spastic hemiplegia affecting right dominant side (12) Chronic, continuous use of opioids: Status: Acute (13) Traumatic brain injury: --According to the residential, he can carry a conversation, ambulates in a motorized scooter, is alert oriented x3 Status: Chronic Qualifiers: Encounter type: sequela (14) DIC (disseminated intravascular coagulation): Status: Acute (15) Rhabdomyolysis: Status: Acute Qualifiers: Rhabdomyolysis type: non-traumatic Qualified Code(s): M62.82 - Rhabdomyolysis (16) Loculated pleural effusion: Status: Acute Additional A&P Information Was residing in nonskilled area of [facility], anticipate disposition back to [facility] although may require skilled depending on clinical course CODE STATUS according to facility records is full code Attestations Medical Necessity Statement*: Patient needs to be in hospital for the management of PNA Coding Level of Care Code Acute Soils Engineer for [facility] Diagnoses Acute respiratory failure with hypoxemia J96.01 Sinus tachycardia R00.0 Ileus K56.7 Healthcare-associated pneumonia J18.9 Sepsis without septic shock A41.9 Acute abdominal pain R10.9 COPD (chronic obstructive pulmonary disease) J44.1 COPD type: COPD with acute exacerbation Diabetes mellitus, type II E11.9 Diabetes mellitus termination clerk insulin use: without half-way use Diabetes mellitus complication status: without complication Hypertension I10 Hypertension type: unspecified Hypothyroidism E03.9 Hypothyroidism type: acquired Spastic hemiplegia G81.11 Hemiplegia etiology: non-cerebrovascular Hemiplegia laterality: right dominant side Chronic, continuous use of opioids F11.90 Traumatic brain injury S06.9X9A Encounter type: sequela DIC (disseminated intravascular coagulation) D65 Rhabdomyolysis M62.82 Rhabdomyolysis type: non-traumatic Loculated pleural effusion J90
--- NOTE | 2021-02-08 16:46 | PC.NURSE ---
anel with speech here checking swallowing. dressing change to cvl. note large reddened areas to right back area. dr. montoya made aware of.
[2021-02-08] MEDS: ascorbic acid 500 mg Tablet PO (17:38)
--- NOTE | 2021-02-08 17:39 | ECG_ITS ---
[facility] Test Date: 2021-02-08 Pat Name: Jayjay Peterson Department: Room: ICU08 Gender: Male Licensed Acupuncturist: : [id number] Requested By: Geoffrey Mendez Order Number: [id number] Jalloh MD: Mirian Mandel M.D. Measurements Intervals [place] Rate: 132 P: 41 NC: 149 QRS: 28 QRSD: 94 T: 22 QT: 335 QTc: 497 Interpretive Statements SINUS TACHYCARDIA WITH OCCASIONAL VENTRICULAR PREMATURE COMPLEXES NONSPECIFIC ST & T-WAVE ABNORMALITY ABNORMAL RHYTHM ECG Compared to ECG 02/05/2021 05:07:29 Ventricular premature complex(es) now present Short NC interval no longer present T-wave abnormality still present Electronically Signed On 02-08-2021 19:07:37 CDT by Mirian aMndel M.D. [id number]
[2021-02-08 18:47] LABS: Glucose Point of Care 222 mg/dL (70-110)
--- NOTE | 2021-02-08 18:53 | PM.PN ---
Subjective Subjective: Interval history: -Patient seen at bedside today morning; responds to commands -Currently on BiPAP FiO2 60% -Left upper lateral chest tube no drainage noted -Left posterior pigtail drain 140 cc overnight and since morning 560 cc bloody drainage noted -Other labs and imaging reviewed Medications: Reviewed: Yes Vitals/I&O/Wt Last Vital Signs Temp 98.7 F 02/08/21 18:00 Pulse 133 H 02/08/21 18:00 Resp 20 H 02/08/21 18:00 BP 140/84 02/08/21 18:00 Pulse Ox 93 02/08/21 18:00 02/08/21 02/08/21 02/08/21 06:59 14:59 22:59 Intake Total 100 / 1219.0909 555 / 555 340 / 895 Output Total 490 / 1760 1110 / 1110 Balance -390 / -540.9091 555 / 555 -770 / -215 Weight last 48 hrs Weight 208 lb 3 oz Weight 208 lb 3 oz Physical Exam Narrative: EXAM NARRATIVE: General: lying in bed, alert commands on BiPAP HEENT:NCAT, PERRLA, EOMI Neck: Supple Lungs: Reduced breath sounds on left lung, Heart: s1/s2, RRR Abd: soft, NT, ND, BS + reduced Extremities: No edema TELEPHONE DIRECTORY DISTRIBUTOR DRIVER: sedated and limited TELEPHONE DIRECTORY DISTRIBUTOR DRIVER exam possible. SKIN: no rash LDA: # CVC: Right internal jugular vein 02/01/2021 Urinary Catheter Management^: Donaldson: Cath Placed During This Visit: yes Reason for Continuing Indwelling Catheter: Accurate Measurement of Urinary Output in Critically Ill Patients Urinary Catheter Date of Insertion: 02/01/21 Urinary Catheter Time of Insertion: 05:42 Data : 02/08/21 04:00 02/08/21 04:00 Other Labs: Laboratory Results WBC 13.4 10^3/uL (4.0-10.0) H 02/08/21 04:00 RBC 4.56 10^6/uL (4.1-5.3) 02/08/21 04:00 Hgb 11.1 g/dL (11.7-16.6) L 02/08/21 04:00 Hct 35.8 % (42.0-52.0) L 02/08/21 04:00 MCV 78.5 fl (80-94) L 02/08/21 04:00 MCH 24.3 pg (28.0-34.0) L 02/08/21 04:00 MCHC 31.0 g/dL (30.0-36.0) 02/08/21 04:00 RDW 15.8 % (12.1-15.1) H 02/08/21 04:00 Plt Count 434 10^3/cmm (130-400) H 02/08/21 04:00 MPV 9.9 fL (7.4-10.4) 02/08/21 04:00 Neut % (Auto) 64.2 % 02/08/21 04:00 Lymph % (Auto) 21.9 % 02/08/21 04:00 [place] % (Auto) 8.5 % 02/08/21 04:00 Eos % (Auto) 1.6 % 02/08/21 04:00 Baso % (Auto) 0.4 % 02/08/21 04:00 Neut # (Auto) 8.59 10^3/uL (1.8-7.7) H 02/08/21 04:00 Lymph # (Auto) 2.9 10^3/uL (0.8-4.8) 02/08/21 04:00 [place] # (Auto) 1.1 10^3/uL (0.2-0.9) H 02/08/21 04:00 Eos # (Auto) 0.2 10^3/uL (0.0-0.8) 02/08/21 04:00 Baso # (Auto) 0.1 10^3/uL (0.0-0.1) 02/08/21 04:00 Nucleated RBC % (auto) 0.1 % 02/08/21 04:00 Nucleated RBCs # 0.0 /100WBC 02/08/21 04:00 ESR 73 mm/hr (0-10) H 02/01/21 11:47 PT 15.80 SECONDS (12.1-14.9) H 02/08/21 04:00 INR 1.23 (0.8-1.2) H 02/08/21 04:00 APTT 33.3 SECONDS (23.9-36.7) D 02/05/21 04:00 Fibrinogen 866 mg/dL (174-498) H 02/05/21 04:00 Fibrin Degrad Products Pos, >=40 ug/mL (NEG) H 02/05/21 04:00 D-Dimer 6.00 ug/mIFEU (0-0.59) H 02/05/21 04:00 Specimen Type Arterial 02/08/21 04:45 Sample Site Radial, left 02/08/21 04:45 ABG pH 7.52 (7.35-7.45) H 02/08/21 04:45 ABG pCO2 40.9 mmHg (35-45) 02/08/21 04:45 ABG pO2 61.0 mmHg (80.0-100.0) L 02/08/21 04:45 ABG HCO3 33.6 mmol/L (22-26) H 02/08/21 04:45 ABG Base Excess 9.9 mmol/L (-2.0-2.0) H 02/08/21 04:45 Aaron Test Pos 02/08/21 04:45 Hematocrit 36.3 % (42-52) L 02/08/21 04:45 O2 Delivery Device None 02/08/21 04:45 O2 Liters/Min 50.0 % 02/02/21 04:00 FiO2 60.0 % 02/08/21 04:45 Tidal Volume 0.50 02/03/21 04:45 PEEP 6.0 cmH20 02/06/21 04:43 Pressure Support 10.0 cmH2O 02/06/21 04:43 Specimen Drawn By murray 02/06/21 04:43 Dental Equipment Technician ID Eitan 02/08/21 04:45 Sodium 137 mmol/L (136-145) 02/08/21 04:00 Potassium 3.2 mmol/L (3.5-5.1) L 02/08/21 04:00 Chloride 97 mmol/L (98-107) L 02/08/21 04:00 Carbon Dioxide 31 mmol/L (22-29) H 02/08/21 04:00 Anion Gap 12.2 (5-19) 02/08/21 04:00 BUN 15 mg/dL (6-20) 02/08/21 04:00 Creatinine 0.3 mg/dL (0.7-1.2) L 02/08/21 04:00 GFR Calculation 311.3 mL/min (90-130) H 02/08/21 04:00 Glucose 148 mg/dL (65-115) H 02/08/21 04:00 POC Glucose 222 mg/dL (70-110) H 02/08/21 17:22 Estimat Average Glucose 192 02/02/21 04:56 Hemoglobin A1c 8.3 % (4.0-6.0) H 02/02/21 04:56 Calculated Osmolality 288 mOsm/kg (285-295) 02/08/21 04:00 Lactate 1.3 mmol/L (0.5-2.2) 02/08/21 04:30 Calcium 7.8 mg/dL (8.5-10.5) L 02/08/21 04:00 Phosphorus 2.9 mg/dL (2.5-4.5) 02/08/21 04:00 Magnesium 1.8 mg/dL (1.7-2.3) 02/08/21 04:00 Ferritin 256 ng/mL (30-400) 02/01/21 11:48 Total Bilirubin 0.4 mg/dL (0.15-1.2) 02/08/21 04:00 AST 28 U/L (0-40) 02/08/21 04:00 ALT 14 U/L (0-41) 02/08/21 04:00 Alkaline Phosphatase 62 IU/L (40-130) 02/08/21 04:00 Creatine Kinase 318 U/L (39-308) H 02/08/21 04:00 Troponin T Baseline 23 ng/L (0-15) H 02/01/21 11:48 Troponin T 120 Minute 22.42 ng/L (0-15) H 02/01/21 15:00 Delta Troponin T -0.58 ABS# (0-10) L 02/01/21 15:00 Troponin T Hi Sens 6Hr 23.76 ng/L (0-15) H 02/01/21 18:28 Troponin T Hi Sens 6Hr Delta 0.76 ng/L (0-12) 02/01/21 18:28 C-Reactive Protein 108.8 mg/L (0.0-4.9) H 02/08/21 04:00 NT-Pro-B Natriuret Pep 107 pg/mL (0-125) 02/08/21 04:00 NT-Pro-B Natriuret Pep 118 pg/mL (0-125) 02/08/21 04:00 Total Protein 6.7 g/dL (6.6-8.7) 02/08/21 04:00 Albumin 2.4 g/dL (3.5-5.2) L 02/08/21 04:00 Globulin 4.3 g/dL (1.3-4.6) 02/08/21 04:00 Lipase 16 U/L (13-60) 01/31/21 22:00 Procalcitonin 0.38 ng/mL (0-0.5) 02/08/21 04:00 TSH 0.70 uIU/mL (0.27-4.20) 02/02/21 04:56 Urine Color Yellow (Yellow) 01/31/21 21:56 Urine Appearance Clear (CLEAR) 01/31/21 21:56 Urine pH 5 (5-7) 01/31/21 21:56 Ur Specific [place] 1.025 (1.005-1.030) 01/31/21 21:56 Urine Protein 1+ (Negative) H 01/31/21 21:56 Urine Glucose (UA) Norm (Normal) 01/31/21 21:56 Urine Ketones 1+ (Negative) H 01/31/21 21:56 Urine Blood Neg (Negative) 01/31/21 21:56 Urine Nitrate Negative (Negative) 01/31/21 21:56 Urine Bilirubin 1+ (Negative) H 01/31/21 21:56 Urine Urobilinogen 8 mg/dL (Negative) H 01/31/21 21:56 Ur Leukocyte Esterase Negative (Negative) 01/31/21 21:56 Urine RBC 0-4 /hpf (0-2) H 01/31/21 21:56 Urine WBC 0-4 /hpf (0-5) H 01/31/21 21:56 Ur Squamous Epith Cells 0-4 /hpf (0-5) H 01/31/21 21:56 Amorphous Sediment Not Reportable 01/31/21 21:56 Urine Bacteria Trace /hpf (NONE) 01/31/21 21:56 Urine Mucus 2+ /hpf 01/31/21 21:56 Vancomycin Trough 22.9 ug/mL (10-15) H 02/02/21 04:56 Random Vancomycin 10.2 ug/mL (20.0-40.0) L 02/02/21 20:10 Nasal/Oral COVID-19 PCR Not detected 02/01/21 05:50 SARS-CoV-2 Ag (Rapid) Negative (Negative) 02/01/21 05:50 Blood Type O Positive 02/04/21 09:31 Rho(D) Type Positive 02/04/21 09:31 Antibody Screen Negative 02/04/21 09:31 Crossmatch See Detail 02/04/21 09:31 Impressions Abdomen/Pelvis CT 01/31/21 21:23 IMPRESSION: 1. Fatty infiltration of the liver 2. Moderate pleural effusion 3. Dense consolidation within the left lower lobe compatible with atelectasis versus pneumonia Radiation Dose CTDIVOL = (mGy): DLP = 1946.41 (mGy-cm) Chest CTA 02/01/21 00:48 IMPRESSION: 1. An enteric tube tip passes into the trachea and right lower lobe bronchi 2. Stable left pleural effusion and basilar atelectasis versus infiltrates compared with yesterday's examination. 3. Fatty infiltration of the liver Radiation Dose CTDIVOL = (mGy): DLP = 618.72 (mGy-cm) ADDENDUM: 02/01/21 0333 CRITICAL RESULT: THIS REPORT CONTAINS FINDINGS THAT MAY BE CRITICAL TO PATIENT CARE. The findings were verbally communicated via telephone conference with TRISTA Brown at 3:31 AM CDT on 02/01/2021. The findings were acknowledged and understood. Radiation Dose CTDIVOL = (mGy): DLP = 618.72 (mGy-cm) KUB X-Ray 02/03/21 06:00 Impression: Moderate generalized ileus. Chest CT 02/04/21 04:32 IMPRESSION: 1. Moderate left pleural effusion with compressive atelectasis left lower lobe. This is increased slightly from previous. 2. Pleural thickening right lower lobe with pleural plaques and subsegmental atelectasis. 3. Enteric tube repositioned with tip in the second portion the duodenum. 4. Diffuse fatty infiltration of the liver. 5. No other significant changes. Chest X-Ray 02/08/21 07:00 IMPRESSION: Imaging findings suggestive of pulmonary congestion with small bilateral pleural effusions. Pneumonia should be excluded clinically. A&P Assessment and plan (1) Acute respiratory failure with hypoxia: Status: Acute (2) Loculated pleural effusion: Status: Acute (3) MRSA pneumonia: Status: Acute Qualifiers: Laterality: unspecified laterality Lung location: unspecified part of lung Qualified Code(s): J15.212 - Pneumonia due to Methicillin resistant Staphylococcus aureus (4) Sepsis without septic shock: Status: Acute (5) Ileus: Status: Acute (6) COPD (chronic obstructive pulmonary disease): Status: Chronic Qualifiers: COPD type: COPD with acute exacerbation Qualified Code(s): J44.1 - Chronic obstructive pulmonary disease with (acute) exacerbation (7) Rhabdomyolysis: Status: Acute Qualifiers: Rhabdomyolysis type: non-traumatic Qualified Code(s): M62.82 - Rhabdomyolysis (8) Traumatic brain injury: Status: Chronic Qualifiers: Encounter type: sequela (9) Spastic hemiplegia: Status: Chronic Qualifiers: Hemiplegia etiology: non-cerebrovascular Hemiplegia laterality: right dominant side Qualified Code(s): G81.11 - Spastic hemiplegia affecting right dominant side (10) GERD (gastroesophageal reflux disease): Status: Chronic Qualifiers: Esophagitis presence: esophagitis presence not specified Qualified Code(s): K21.9 - Gastro-esophageal reflux disease without esophagitis (11) Diabetes mellitus, type II: Status: Chronic Qualifiers: Diabetes mellitus prison insulin use: without buttermaker helper use Diabetes mellitus complication status: without complication Qualified Code(s): E11.9 - Type 2 diabetes mellitus without complications #Acute respiratory failure with hypoxia-extubated 02/06/2021 and currently requiring BiPAP and 60% FiO2 #Loculated left pleural effusion-likely secondary to hospital-acquired pneumonia versus aspiration #MRSA nares positive ; presented with septic shock-currently off pressors #History of COPD #History of traumatic brain injury and spastic hemiplegia-- Communicative as per #Diabetes mellitus-moderately controlled sugars #Rhabdomyolysis-improving #Ileus secondary to medication-on bowel regimen -Currently afebrile and improving WBC; admission procalcitonin 6.9 -MRSA nares positive; so far all other cultures negative including left fluid cultures -Currently covered with linezolid, imipenem (started on 02/01/2021) -CT chest 02/01/2021 showed left pleural effusion and bibasilar atelectasis versus infiltrates -CT surgery for VATS but due to patient being a poor surgical candidate-chest tube was placed anteriorly for the CT surgeon which drained total of 1050 cc of serous fluid -Subsequent imaging showed significant pockets and so accordingly 14 [place] pigtail was placed posteriorly and TPA was given for 2 days-patient has active output-appeared bloody (with stable H&H) subsequent Chest x-ray showing significant in improvement left-sided pleural effusion -Opens eyes and follows simple commands and on BiPAP FiO2 60% -On DuoNeb and Pulmicort scheduled nebulization -Aspirin/Lipitor -Improving rhabdomyolysis-CK downtrending -On bowel regimen lactulose and MiraLAX -On levothyroxine for hypothyroidism -Sugars moderately controlled and pt is on detemir 15 u q12 hr and scale coverage - honey thickened liquids -PPI for GI prophylaxis -Lovenox 40 mg for DVT prophylaxis -DNR -poor prognosis -Family updated Attestations Medical Necessity Statement*: Patient requires hospitalization for acute respiratory failure with hypoxia secondary to healthcare associate pneumonia, loculated left pleural effusion Time Spent in Patient Care: Greater than 35 minutes (>than 50% of time spent in counselling and/or direct pt care on unit). Coding Level of Care Code Acute Superintendent [facility] for [facility] Diagnoses Acute respiratory failure with hypoxia J96.01 Loculated pleural effusion J90 MRSA pneumonia J15.212 Laterality: unspecified laterality Lung location: unspecified part of lung Sepsis without septic shock A41.9 Ileus K56.7 COPD (chronic obstructive pulmonary disease) J44.1 COPD type: COPD with acute exacerbation Rhabdomyolysis M62.82 Rhabdomyolysis type: non-traumatic Traumatic brain injury S06.9X9A Encounter type: sequela Spastic hemiplegia G81.11 Hemiplegia etiology: non-cerebrovascular Hemiplegia laterality: right dominant side GERD (gastroesophageal reflux disease) K21.9 Esophagitis presence: esophagitis presence not specified Diabetes mellitus, type II E11.9 Diabetes mellitus buttermaker helper insulin use: without buttermaker helper use Diabetes mellitus complication status: without complication
--- NOTE | 2021-02-08 19:21 | XRR_ITS ---
PROCEDURE INFORMATION: Exam: XR Chest Exam date and time: 02/08/2021 7:21 PM Age: 56 years old Clinical indication: Shortness of breath; Prior surgery; Surgery type: Ribs, chest tube, central line; Additional info: Pneumothorax TECHNIQUE: Imaging protocol: XR of the chest. Views: 1 view. COMPARISON: CR (CHEST, ) 02/08/2021 5:22 AM FINDINGS: Tubes, catheters and devices: No change right IJ central line with tip overlying the right atrium, left large bore chest tube with tip over the upper lobe laterally, and small bore left basilar chest tube with tip overlying the cardiac silhouette medially. Lungs: Bilateral prominent interstitial markings with no focal consolidation appreciated. Evaluation of lung bases limited. Pleural spaces: Bilateral small pleural effusions are unchanged. No visible pneumothorax. Heart/Mediastinum: Unremarkable. No cardiomegaly. Bones/joints: Right rib plates and screws redemonstrated. XR/XR chest 1V portable [id number] IMPRESSION: 1. No significant interval change.
[2021-02-08 20:34] LABS: Glucose Point of Care 218 mg/dL (70-110)
[2021-02-08] MEDS: metoprolol tartrate 50 mg Tablet PO (20:46)
[2021-02-08] MEDS: potassium chloride premix 100 ML 25 MEQ IV (20:46)
[2021-02-08] MEDS: atorvastatin 40 mg Tablet 20 MG PO (21:05)
--- NOTE | 2021-02-08 21:38 | PC.NURSE ---
Dr. Carrington was notified at 2134 that the patient's hemoglobin had dropped a considerable amount and that lab was going to redraw a CBC to verify if it was accurate. The physician gave me instructions to hold the TPA tonight, and the patient would be reevaluated in the morning for administration of TPA in the chest tube. An additional order was given to infuse one unit of PRBC's for an H&H less than 7.
[2021-02-08 22:10] LABS: Hematocrit 35.5 % (42.0-52.0); Hemoglobin 11.2 g/dL (11.7-16.6); Mean Corpuscular HGB Conc 31.5 g/dL (30.0-36.0); Mean Corpuscular Hemoglobin 24.6 pg (28.0-34.0); Mean Platelet Volume 9.6 fL (7.4-10.4); Platelet Count 438 10^3/cmm (130-400); Red Blood Count 4.55 10^6/uL (4.1-5.3); White Blood Count 15.7 10^3/uL (4.0-10.0)
[2021-02-08 22:57] LABS: Absolute Eosinophils 0.3 10^3/cmm (0.0-0.7); Absolute Neutrophil 10.5 10^3/cmm (1.4-6.5); Absolute Segmented Neutrophil 10.2 10/cmm (1.6-7.1); Band Neutrophils Absolute 0.3 10^3/cmm (0.0-1.2); Eosinophils 2 %; Lymphocytes 23 %; Lymphocytes Absolute 3.6 10^3/cmm (1.2-3.4); Monocytes Absolute 1.3 10^3/cmm (0.1-0.6); Platelet Estimate Normal (Normal); Segmented Neutrophils 65 %; Total Cells Counted 100 (0-100)
[2021-02-09] VITALS (36 sets, daily range): BP systolic 106–141; BP diastolic 61–81; PULSE 93–117; RESP 8–23; TEMP 36.4–37.3; O2SAT 86–97; BMI 28.5
[2021-02-09] MEDS: ipratropium-albuterol 3 mL Neb INHALATION ×4 (02:25→20:01)
[2021-02-09 04:55] LABS: ABG PCO2 39.8 mmHg (35-45); ABG PH Result 7.52 (7.35-7.45); Arterial Blood Gas Hematocrit 34.7 % (42-52); Base Excess ABG 8.6 mmol/L (-2.0-2.0); Blood Gas Allen Test Pos; Blood Gas Sample Site Radial, left; Blood Gas Sample Type Arterial; HCO3 ABG 32.2 mmol/L (22-26); PO2 ABG 67.5 mmHg (80.0-100.0)
[2021-02-09] MEDS: enoxaparin 40 mg/0.4 mL Syringe SUBCUT (05:38)
[2021-02-09] MEDS: linezolid premix 600 MG/300 ML PREMIX 300 MG IV ×2 (05:38→17:43)
[2021-02-09] MEDS: levothyroxine 25 mcg Tablet PO (05:38)
--- NOTE | 2021-02-09 06:00 | USCV_ITS ---
Jayjay Peterson Age: 56 Gender: M : 1965 Exam Date: 02/09/2021 06:15 Ordering Phys: Bijan Burk MD Technologist: Exam Location: [facility] Indication: SOB BP: 108 / 61 HR: 105 Rhythm: Sinus Technical Quality: Suboptimal MEASUREMENTS (Male / Female) Normal Values 2D ECHO LV Diastolic Diameter PLAX 3.7 cm 4.2 - 5.9 / 3.9 - 5.3 cm LV Systolic Diameter PLAX 2.3 cm IVS Diastolic Thickness 0.9 cm 0.6 - 1.0 / 0.6 - 0.9 cm IVS Systolic Thickness 1.3 cm LVPW Diastolic Thickness 1.1 cm 0.6 - 1.0 / 0.6 - 0.9 cm LVPW Systolic Thickness 1.6 cm LVOT Diameter 2.1 cm LV Ejection Fraction 2D Teich 69.8 % LV Ejection Fraction MOD 2C 50.7 % LV Ejection Fraction 2C AL 50.1 % LA Diameter 3.9 cm LA Width 4.3 cm LA Height 4.8 cm RA Width 3.7 cm RA Height 5.0 cm DOPPLER AV Peak Velocity 147.0 cm/s LVOT Peak Velocity 90.0 cm/s AV Area Cont Eq vti 2.2 cm squared AV Area Cont Eq pk 2.0 cm squared MV Area PHT 6.7 cm squared Mitral E to A Ratio 0.7 MV E' Velocity 42.0 cm/s Mitral E to MV E' Ratio 7.2 Mitral E to LV E' Lateral Ratio 7.1 Mitral E to LV E' Septal Ratio 7.4 TR Peak Velocity 183.8 cm/s TR Peak Gradient 13.5 mmHg TV Peak E Velocity 119.0 cm/s Right Atrial Pressure 3.0 mmHg Pulmonary Artery Systolic Pressu 16.5 mmHg FINDINGS Left Ventricle Normal left ventricular cavity size. Normal left ventricular systolic function. No regional wall motion abnormalities. Left ventricular ejection fraction is estimated at 59 %. No regional wall motion abnormalities. Grade I/IV diastolic dysfunction (abnormal relaxation filling pattern), normal to mildly elevated filling pressures. Right Ventricle The right ventricle is normal in size and function. Right Atrium The right atrium is normal in size. Left Atrium The left atrium is normal in size. Mitral Valve Moderately thickened mitral valve. No mitral valve stenosis. Trace mitral valve regurgitation. Aortic Valve Aortic valve sclerosis without stenosis or regurgitation. Tricuspid Valve Structurally normal tricuspid valve without significant stenosis or regurgitation. Pulmonary artery systolic pressure is normal. Pulmonic Valve Structurally normal pulmonic valve without significant stenosis. There is no pulmonic regurgitation. Pericardium Normal pericardium without effusion. Aorta Normal ascending aorta dimension. CONCLUSIONS 1-Normal left ventricular cavity size. Normal left ventricular systolic function. No regional wall motion abnormalities. Left ventricular ejection fraction is estimated at 59 %. No regional wall motion abnormalities. Grade I/IV diastolic dysfunction (abnormal relaxation filling pattern), normal to mildly elevated filling pressures. 2-Moderately thickened mitral valve. No mitral valve stenosis. Trace mitral valve regurgitation. 3-Aortic valve sclerosis without stenosis or regurgitation. 4-There is no pericardial effusion. 5-Pulmonary artery systolic pressure is within normal limits. 6-Right atrial pressure is around 5 mm of mercury. 7-There are no prior echocardiogram studies to compare. Delmer Pappas MD (Electronically Signed) Final Date: 09 February 2021 18:55 S
[2021-02-09 06:14] LABS: INR 1.21 (0.8-1.2)
[2021-02-09 06:17] LABS: Lactate (Lactic Acid level) 1.1 mmol/L (0.5-2.2)
[2021-02-09 06:30] LABS: NT Pro B Type Natriuretic Pept 64 pg/mL (0-125)
--- NOTE | 2021-02-09 07:20 | PM.PN ---
Subjective Subjective: Interval history: Low chest tube output noted from the [place] chest tube that was placed. Still good output from the lower pigtail catheter placed by my pulmonary colleagues. Vitals/I&O/Wt Last Vital Signs Temp 98.4 F 02/09/21 04:00 Pulse 104 H 02/09/21 06:00 Resp 18 02/09/21 06:00 BP 133/68 02/09/21 06:00 Pulse Ox 92 02/09/21 06:00 02/08/21 02/09/21 02/09/21 22:59 06:59 14:59 Intake Total 640 / 1195 400 / 1595 Output Total 1110 / 1110 425 / 1535 Balance -470 / 85 -25 / 60 Weight last 48 hrs Weight 210 lb 5 oz Weight 208 lb 3 oz Physical Exam Chest: OTHER: More superior thoracostomy tube was removed without difficulty and suture secured. Occlusive dressing applied. Urinary Catheter Management^: Donaldson: Cath Placed During This Visit: yes Reason for Continuing Indwelling Catheter: Accurate Measurement of Urinary Output in Critically Ill Patients Urinary Catheter Date of Insertion: 02/01/21 Urinary Catheter Time of Insertion: 05:42 Data : 02/08/21 22:04 02/08/21 04:00 A&P Assessment and plan (1) Acute respiratory failure with hypoxia: Now extubated and making slow but steady progress. [place] chest tube was discontinued due to low output. Status: Acute Attestations Medical Necessity Statement*: Status post chest tube placement secondary to pleural effusion, resolving Time Spent in Patient Care: 16 - 35 minutes Coding Level of Care Code Acute Admission Specialist for Dilan Doyle Diagnoses Acute respiratory failure with hypoxia J96.01
--- NOTE | 2021-02-09 07:26 | PC.NURSE ---
Chest tube Large chest tube to upper left side discontinued by Dr Reeder due to low output. Pt tolerated well.
[2021-02-09 07:39] LABS: Glucose Point of Care 250 mg/dL (70-110)
[2021-02-09] MEDS: polyethylene glycol 3350 Pkt 17 gm PO (08:03)
[2021-02-09] MEDS: ascorbic acid 500 mg Tablet PO ×2 (08:03→17:45)
[2021-02-09] MEDS: metoprolol tartrate 50 mg Tablet PO ×2 (08:03→20:43)
[2021-02-09] MEDS: cholecalciferol (vitamin D3) 1,000 unit Tablet 1000 UNIT PO (08:03)
[2021-02-09] MEDS: zinc gluconate 50 mg Tablet PO (08:03)
[2021-02-09] MEDS: pantoprazole 40 mg SDV IVP (08:03)
[2021-02-09] MEDS: aspirin 81 mg EC Tablet PO (08:03)
--- NOTE | 2021-02-09 09:02 | XR_ITS ---
WS: [id number] XR chest 1V portable [id number] REASON FOR EXAM: pleural effusion FINDINGS: Transverse right jugular central venous line remains in position. Compared to the previous day, large bore left chest tube has been removed. Smaller caliber drainage t ube overlies the lower left hemithorax. There is a pleural peel (most likely) versus loculated fluid along the lateral margin of the left lung. Residual consolidation is seen in the left lower lung. The re is no left pneumothorax. Findings of the previous day suggested right pleural effusion however on today's examination configur ation of the right costophrenic angle region appears more normal. XR/XR chest 1V portable [id number] IMPRESSION: Evolving abnormal chest with interval changes as above.
[2021-02-09] MEDS: budesonide 0.5 mg/2 mL Neb INHALATION ×2 (09:29→20:01)
--- NOTE | 2021-02-09 10:14 | P.PN_ITS ---
Subjective Subjective: Interval history: -Patient seen at bedside today -Appeared clinically much better -Currently on high flow nasal cannula 35 L and 60% saturating 97% -apical anterior 32 Fr chest tube removed by CT surgery as there was no significant output -Overnight there was no output noted to posterior pigtail as well -Plan is to give 1 dose TPA today morning and see if there is any more drainage -Today morning chest x-ray showed pleural peel/loculated fluid along the lateral margin of the left lung Medications: Reviewed: Yes Vitals/I&O/Wt Last Vital Signs Temp 98.4 F 02/09/21 07:35 Pulse 117 H 02/09/21 09:33 Resp 18 02/09/21 09:33 BP 140/70 02/09/21 07:35 Pulse Ox 97 02/09/21 09:33 02/08/21 02/09/21 02/09/21 22:59 06:59 14:59 Intake Total 640 / 1195 400 / 1595 460 / 460 Output Total 1110 / 1110 425 / 1535 0 / 0 Balance -470 / 85 -25 / 60 460 / 460 Weight last 48 hrs Weight 210 lb 5 oz Weight 208 lb 3 oz Physical Exam Narrative: EXAM NARRATIVE: General: lying in bed, appears more alert, he is on high flow nasal cannula HEENT:NCAT, PERRLA, EOMI Neck: Supple Lungs: Improving breath sounds on left lung, Heart: s1/s2, RRR Abd: soft, NT, ND, BS + reduced Extremities: No edema MANAGER LOCAL: Appears more alert, oriented and communicative no gross FND SKIN: no rash LDA: # CVC: Right internal jugular vein 02/01/2021 Urinary Catheter Management^: Donaldson: Cath Placed During This Visit: yes Reason for Continuing Indwelling Catheter: Accurate Measurement of Urinary Output in Critically Ill Patients Urinary Catheter Date of Insertion: 02/01/21 Urinary Catheter Time of Insertion: 05:42 Data : 02/08/21 22:04 02/08/21 04:00 Other Labs: Laboratory Results WBC 15.7 10^3/uL (4.0-10.0) H 02/08/21 22:04 Corrected WBC Cancelled 02/08/21 20:31 RBC 4.55 10^6/uL (4.1-5.3) 02/08/21 22:04 Hgb 11.2 g/dL (11.7-16.6) L 02/08/21 22:04 Hct 35.5 % (42.0-52.0) L 02/08/21 22:04 MCV 78.0 fl (80-94) L 02/08/21 22:04 MCH 24.6 pg (28.0-34.0) L 02/08/21 22:04 MCHC 31.5 g/dL (30.0-36.0) 02/08/21 22:04 RDW 16.0 % (12.1-15.1) H 02/08/21 22:04 Plt Count 438 10^3/cmm (130-400) H 02/08/21 22:04 MPV 9.6 fL (7.4-10.4) 02/08/21 22:04 Neut % (Auto) 64.2 % 02/08/21 04:00 Lymph % (Auto) 21.9 % 02/08/21 04:00 [place] % (Auto) 8.5 % 02/08/21 04:00 Eos % (Auto) 1.6 % 02/08/21 04:00 Baso % (Auto) 0.4 % 02/08/21 04:00 Neut # (Auto) 8.59 10^3/uL (1.8-7.7) H 02/08/21 04:00 Lymph # (Auto) 2.9 10^3/uL (0.8-4.8) 02/08/21 04:00 [place] # (Auto) 1.1 10^3/uL (0.2-0.9) H 02/08/21 04:00 Eos # (Auto) 0.2 10^3/uL (0.0-0.8) 02/08/21 04:00 Baso # (Auto) 0.1 10^3/uL (0.0-0.1) 02/08/21 04:00 Nucleated RBC % (auto) 0.1 % 02/08/21 04:00 Total Counted 100 (0-100) 02/08/21 22:04 Atypical Lymphs % 0.0 % (0-5) 02/08/21 22:04 Absolute Neutrophils 10.5 10^3/cmm (1.4-6.5) H 02/08/21 22:04 Segmented Neutrophils 65 % 02/08/21 22:04 Abs Segm Neuts (Man) 10.2 10/cmm (1.6-7.1) H 02/08/21 22:04 Band Neutrophils 2.0 % 02/08/21 22:04 Abs Band Neuts (Man) 0.3 10^3/cmm (0.0-1.2) 02/08/21 22:04 Absolute Lymphocytes 3.6 10^3/cmm (1.2-3.4) H 02/08/21 22:04 Lymphocytes (Manual) 23 % 02/08/21 22:04 Monocytes (Manual) 8.0 % 02/08/21 22:04 Absolute Monocytes 1.3 10^3/cmm (0.1-0.6) H 02/08/21 22:04 Eosinophils (Manual) 2 % 02/08/21 22:04 Absolute Eosinophils 0.3 10^3/cmm (0.0-0.7) 02/08/21 22:04 Basophils (Manual) 0.0 % 02/08/21 22:04 Absolute Basophils 0.0 10^3/cmm (0.0-0.2) 02/08/21 22:04 Metamyelocytes Cancelled 02/08/21 20:31 Myelocytes Cancelled 02/08/21 20:31 Promyelocytes Cancelled 02/08/21 20:31 Nucleated RBCs Cancelled 02/08/21 20:31 Nucleated RBCs # 0.0 /100WBC 02/08/21 04:00 Pathologist Review Cancelled 02/08/21 20:31 Hypersegmented Polys Cancelled 02/08/21 20:31 Blast Cells Cancelled 02/08/21 20:31 Smudge Cells Cancelled 02/08/21 20:31 Toxic Granulation Cancelled 02/08/21 20:31 Toxic Vacuolation Cancelled 02/08/21 20:31 Dohle Bodies Cancelled 02/08/21 20:31 Laina Rods Cancelled 02/08/21 20:31 Platelet Estimate Normal (Normal) 02/08/21 22:04 Giant Platelets Cancelled 02/08/21 20:31 Polychromasia Cancelled 02/08/21 20:31 Hypochromasia Cancelled 02/08/21 20:31 Poikilocytosis Cancelled 02/08/21 20:31 Basophilic Stippling Cancelled 02/08/21 20:31 Anisocytosis Cancelled 02/08/21 20:31 Microcytosis Cancelled 02/08/21 20:31 Macrocytosis Cancelled 02/08/21 20:31 Spherocytes Cancelled 02/08/21 20:31 Sickle Cells Cancelled 02/08/21 20:31 Target Cells Cancelled 02/08/21 20:31 Tear Drop Cells Cancelled 02/08/21 20:31 Ovalocytes Cancelled 02/08/21 20:31 Stomatocytes Cancelled 02/08/21 20:31 Helmet Cells Cancelled 02/08/21 20:31 Olson-Silvana Bodies Cancelled 02/08/21 20:31 [place] Cells Cancelled 02/08/21 20:31 Crenated Cell Cancelled 02/08/21 20:31 Acanthocytes (Spur) Cancelled 02/08/21 20:31 Rouleaux Cancelled 02/08/21 20:31 Schistocytes Cancelled 02/08/21 20:31 RBC Morph Comment Cancelled 02/08/21 20:31 ESR 73 mm/hr (0-10) H 02/01/21 11:47 PT 15.60 SECONDS (12.1-14.9) H 02/09/21 05:40 INR 1.21 (0.8-1.2) H 02/09/21 05:40 APTT 33.3 SECONDS (23.9-36.7) D 02/05/21 04:00 Fibrinogen 866 mg/dL (174-498) H 02/05/21 04:00 Fibrin Degrad Products Pos, >=40 ug/mL (NEG) H 02/05/21 04:00 D-Dimer 6.00 ug/mIFEU (0-0.59) H 02/05/21 04:00 Specimen Type Arterial 02/09/21 04:45 Sample Site Radial, left 02/09/21 04:45 ABG pH 7.52 (7.35-7.45) H 02/09/21 04:45 ABG pCO2 39.8 mmHg (35-45) 02/09/21 04:45 ABG pO2 67.5 mmHg (80.0-100.0) L 02/09/21 04:45 ABG HCO3 32.2 mmol/L (22-26) H 02/09/21 04:45 ABG Base Excess 8.6 mmol/L (-2.0-2.0) H 02/09/21 04:45 Aaron Test Pos 02/09/21 04:45 Hematocrit 34.7 % (42-52) L 02/09/21 04:45 O2 Delivery Device None 02/08/21 04:45 O2 Liters/Min 35.0 % 02/09/21 04:45 FiO2 60.0 % 02/09/21 04:45 Tidal Volume 0.50 02/03/21 04:45 PEEP 6.0 cmH20 02/06/21 04:43 Pressure Support 10.0 cmH2O 02/06/21 04:43 Specimen Drawn By murray 02/06/21 04:43 Market Development Executive ID Murray 02/09/21 04:45 Sodium 137 mmol/L (136-145) 02/08/21 04:00 Potassium 3.2 mmol/L (3.5-5.1) L 02/08/21 04:00 Chloride 97 mmol/L (98-107) L 02/08/21 04:00 Carbon Dioxide 31 mmol/L (22-29) H 02/08/21 04:00 Anion Gap 12.2 (5-19) 02/08/21 04:00 BUN 15 mg/dL (6-20) 02/08/21 04:00 Creatinine 0.3 mg/dL (0.7-1.2) L 02/08/21 04:00 GFR Calculation 311.3 mL/min (90-130) H 02/08/21 04:00 Glucose 148 mg/dL (65-115) H 02/08/21 04:00 POC Glucose 250 mg/dL (70-110) H 02/09/21 07:37 Estimat Average Glucose 192 02/02/21 04:56 Hemoglobin A1c 8.3 % (4.0-6.0) H 02/02/21 04:56 Calculated Osmolality 288 mOsm/kg (285-295) 02/08/21 04:00 Lactate 1.1 mmol/L (0.5-2.2) 02/09/21 05:40 Calcium 7.8 mg/dL (8.5-10.5) L 02/08/21 04:00 Phosphorus 2.9 mg/dL (2.5-4.5) 02/08/21 04:00 Magnesium 1.8 mg/dL (1.7-2.3) 02/08/21 04:00 Ferritin 256 ng/mL (30-400) 02/01/21 11:48 Total Bilirubin 0.4 mg/dL (0.15-1.2) 02/08/21 04:00 AST 28 U/L (0-40) 02/08/21 04:00 ALT 14 U/L (0-41) 02/08/21 04:00 Alkaline Phosphatase 62 IU/L (40-130) 02/08/21 04:00 Creatine Kinase 318 U/L (39-308) H 02/08/21 04:00 Troponin T Baseline 23 ng/L (0-15) H 02/01/21 11:48 Troponin T 120 Minute 22.42 ng/L (0-15) H 02/01/21 15:00 Delta Troponin T -0.58 ABS# (0-10) L 02/01/21 15:00 Troponin T Hi Sens 6Hr 23.76 ng/L (0-15) H 02/01/21 18:28 Troponin T Hi Sens 6Hr Delta 0.76 ng/L (0-12) 02/01/21 18:28 C-Reactive Protein 108.8 mg/L (0.0-4.9) H 02/08/21 04:00 NT-Pro-B Natriuret Pep 64 pg/mL (0-125) 02/09/21 05:40 Total Protein 6.7 g/dL (6.6-8.7) 02/08/21 04:00 Albumin 2.4 g/dL (3.5-5.2) L 02/08/21 04:00 Globulin 4.3 g/dL (1.3-4.6) 02/08/21 04:00 Lipase 16 U/L (13-60) 01/31/21 22:00 Procalcitonin 0.38 ng/mL (0-0.5) 02/08/21 04:00 TSH 0.70 uIU/mL (0.27-4.20) 02/02/21 04:56 Urine Color Yellow (Yellow) 01/31/21 21:56 Urine Appearance Clear (CLEAR) 01/31/21 21:56 Urine pH 5 (5-7) 01/31/21 21:56 Ur Specific [place] 1.025 (1.005-1.030) 01/31/21 21:56 Urine Protein 1+ (Negative) H 01/31/21 21:56 Urine Glucose (UA) Norm (Normal) 01/31/21 21:56 Urine Ketones 1+ (Negative) H 01/31/21 21:56 Urine Blood Neg (Negative) 01/31/21 21:56 Urine Nitrate Negative (Negative) 01/31/21 21:56 Urine Bilirubin 1+ (Negative) H 01/31/21 21:56 Urine Urobilinogen 8 mg/dL (Negative) H 01/31/21 21:56 Ur Leukocyte Esterase Negative (Negative) 01/31/21 21:56 Urine RBC 0-4 /hpf (0-2) H 01/31/21 21:56 Urine WBC 0-4 /hpf (0-5) H 01/31/21 21:56 Ur Squamous Epith Cells 0-4 /hpf (0-5) H 01/31/21 21:56 Amorphous Sediment Not Reportable 01/31/21 21:56 Urine Bacteria Trace /hpf (NONE) 01/31/21 21:56 Urine Mucus 2+ /hpf 01/31/21 21:56 Vancomycin Trough 22.9 ug/mL (10-15) H 02/02/21 04:56 Random Vancomycin 10.2 ug/mL (20.0-40.0) L 02/02/21 20:10 Nasal/Oral COVID-19 PCR Not detected 02/01/21 05:50 SARS-CoV-2 Ag (Rapid) Negative (Negative) 02/01/21 05:50 Blood Type O Positive 02/04/21 09:31 Rho(D) Type Positive 02/04/21 09:31 Antibody Screen Negative 02/04/21 09:31 Crossmatch See Detail 02/04/21 09:31 Impressions Abdomen/Pelvis CT 01/31/21 21:23 IMPRESSION: 1. Fatty infiltration of the liver 2. Moderate pleural effusion 3. Dense consolidation within the left lower lobe compatible with atelectasis versus pneumonia Radiation Dose CTDIVOL = (mGy): DLP = 1946.41 (mGy-cm) Chest CTA 02/01/21 00:48 IMPRESSION: 1. An enteric tube tip passes into the trachea and right lower lobe bronchi 2. Stable left pleural effusion and basilar atelectasis versus infiltrates compared with yesterday's examination. 3. Fatty infiltration of the liver Radiation Dose CTDIVOL = (mGy): DLP = 618.72 (mGy-cm) ADDENDUM: 02/01/21 0333 CRITICAL RESULT: THIS REPORT CONTAINS FINDINGS THAT MAY BE CRITICAL TO PATIENT CARE. The findings were verbally communicated via telephone conference with TRISTA Brown at 3:31 AM CDT on 02/01/2021. The findings were acknowledged and understood. Radiation Dose CTDIVOL = (mGy): DLP = 618.72 (mGy-cm) KUB X-Ray 02/03/21 06:00 Impression: Moderate generalized ileus. Chest CT 02/04/21 04:32 IMPRESSION: 1. Moderate left pleural effusion with compressive atelectasis left lower lobe. This is increased slightly from previous. 2. Pleural thickening right lower lobe with pleural plaques and subsegmental atelectasis. 3. Enteric tube repositioned with tip in the second portion the duodenum. 4. Diffuse fatty infiltration of the liver. 5. No other significant changes. Chest X-Ray 02/09/21 09:02 IMPRESSION: Evolving abnormal chest with interval changes as above. A&P Assessment and plan (1) Acute respiratory failure with hypoxia: Status: Acute (2) Loculated pleural effusion: Status: Acute (3) MRSA pneumonia: Status: Acute Qualifiers: Laterality: unspecified laterality Lung location: unspecified part of lung Qualified Code(s): J15.212 - Pneumonia due to Methicillin resistant Staph ylococcus aureus (4) Sepsis without septic shock: Status: Acute (5) Ileus: Status: Acute (6) COPD (chronic obstructive pulmonary disease): Status: Chronic Qualifiers: COPD type: COPD with acute exacerbation Qualified Code(s): J44.1 - Chronic obstructive pulmonary disease with (acute) exacerbation (7) Rhabdomyolysis: Status: Acute Qualifiers: Rhabdomyolysis type: non-traumatic Qualified Code(s): M62.82 - Rhabdomyolysis (8) Traumatic brain injury: Status: Chronic Qualifiers: Encounter type: sequela (9) Spastic hemiplegia: Status: Chronic Qualifiers: Hemiplegia etiology: non-cerebrovascular Hemiplegia laterality: right dominant side Qualified Code(s): G81.11 - Spastic hemiplegia affecting right dominant side (10) GERD (gastroesophageal reflux disease): Status: Chronic Qualifiers: Esophagitis presence: esophagitis presence not specified Qualified Code(s): K21.9 - Gastro-esophageal reflux disease without esophagitis (11) Diabetes mellitus, type II: Status: Chronic Qualifiers: Diabetes mellitus group home insulin use: without group home use Diabetes mellitus complication status: without complication Qualified Code(s): E11.9 - Type 2 diabetes mellitus without complications #Acute respiratory failure with hypoxia-extubated 02/06/2021 and currently requiring HFNC 35 L 50% #Loculated left pleural effusion-likely secondary to hospital-acquired pneumonia versus aspiration #MRSA nares positive ; presented with septic shock-currently off pressors #History of COPD #History of traumatic brain injury and spastic hemiplegia-- Communicative as per #Diabetes mellitus-moderately controlled sugars #Rhabdomyolysis-improving #Ileus secondary to medication-on bowel regimen -Currently afebrile and improving WBC; admission procalcitonin 6.9 -MRSA nares positive; so far all other cultures negative including left fluid cultures -Currently covered with linezolid, imipenem (started on 02/01/2021) -CT chest 02/01/2021 showed left pleural effusion and bibasilar atelectasis versus infiltrates -CT surgery for VATS but due to patient being a poor surgical candidate-chest tube was placed anteriorly for the CT surgeon which drained total of 1050 cc of serous fluid -removed on 02/09/2021 -Subsequent imaging showed significant pockets and so accordingly 14 [place] pigtail was placed posteriorly and TPA was given for 2 days-patient has active output-appeared bloody (with stable H&H) subsequent -plan is to give 1 dose of TPA today morning and if there is no significant output over next 24 hours-I will remove the pigtail as well -Chest x-ray showing significant in improvement left-sided pleural effusion but with residual left lateral pleural effusion versus pleural peel -Alert and communicates well-currently on high flow 35 L 60% FiO2 -On DuoNeb and Pulmicort scheduled nebulization -Aspirin/Lipitor -Improving rhabdomyolysis-CK downtrending -On bowel regimen lactulose and MiraLAX -On levothyroxine for hypothyroidism -Sugars moderately controlled and pt is on detemir 15 u q12 hr and scale coverage - honey thickened liquids-advance diet as tolerated -PPI for GI prophylaxis -Lovenox 40 mg for DVT prophylaxis -DNR -Guarded prognosis -Family updated Attestations Medical Necessity Statement*: Patient requires hospitalization for acute respiratory failure with hypoxia secondary to healthcare associate pneumonia, loculated left pleural effusion Time Spent in Patient Care: Greater than 35 minutes (>than 50% of time spent in counselling and/or direct pt care on unit) . Critical Care Time: The high probability of a clinically significant, sudden or life threatening deterioration of the patient's [neurological, pulmonary] system(s) required my full and direct attention, intervention and personal management. The critical care time is as shown. 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 Patient Type Established History Comprehensive Exam Comprehensive Medical Decision Making High Complexity Diagnoses Acute respiratory failure with hypoxia J96.01 Loculated pleural effusion J90 MRSA pneumonia J15.212 Laterality: unspecified laterality Lung location: unspecified part of lung Sepsis without septic shock A41.9 Ileus K56.7 COPD (chronic obstructive pulmonary disease) J44.1 COPD type: COPD with acute exacerbation Rhabdomyolysis M62.82 Rhabdomyolysis type: non-traumatic Traumatic brain injury [id number] Encounter type: sequela Spastic hemiplegia G81.11 Hemiplegia etiology: non-cerebrovascular Hemiplegia laterality: right dominant side GERD (gastroesophageal reflux disease) K21.9 Esophagitis presence: esophagitis presence not specified Diabetes mellitus, type II E11.9 Diabetes mellitus group home insulin use: without equipment operator intermodal yard use Diabetes mellitus complication status: without complication Time Spent (min) 45
--- NOTE | 2021-02-09 10:38 | PC.NURSE ---
Chest tube Pt had placed call light on because he had a bowel movement. When pt was rolled to his right side his chest tube pulled from the connector. A small amount of blood was seen on the tima under the pt. Chest tube was was reconnected and redressed with vaseline gauze, a 4x4 and foam tape.
[2021-02-09 11:15] LABS: Glucose Point of Care 140 mg/dL (70-110)
--- NOTE | 2021-02-09 15:00 | PC.RESP ---
RT Shift Note Frequent safety and respiratory rounds continue. Orders completed as indicated. Patient monitored pre and post treatments throughout shift. Patient [Did.] tolerate treatments appropriately. Condition [.DidNotChange]. Patient and/or fulfillment representative educated on respiratory treatment and medications. Patient and/or fulfillment representative [reinforcement needed]. Will continue to monitor patient progress.
--- NOTE | 2021-02-09 15:53 | PM.PN ---
Subjective Subjective: Interval history: Patient was seen and examined this morning.Currently he is saturating well on HHFONC @ 50 Ls AND 60% FIO2 . Left upper lateral chest tube removed . Left posterior pigtail no drainage. Medications: Reviewed: Yes Vitals/I&O/Wt Last Vital Signs Temp 98.4 F 02/09/21 07:35 Pulse 99 02/09/21 14:59 Resp 17 02/09/21 14:59 BP 123/70 02/09/21 14:00 Pulse Ox 93 02/09/21 14:59 02/09/21 02/09/21 02/09/21 06:59 14:59 22:59 Intake Total 400 / 1595 620 / 620 100 / 720 Output Total 425 / 1535 1328 / 1328 Balance -25 / 60 -708 / -708 100 / -608 Weight last 48 hrs Weight 95.396 kg Weight 94.432 kg Physical Exam Narrative: EXAM NARRATIVE: Alert and awake follows Command. HENMT: COMMON NORMALS: normocephalic and atraumatic HEAD & SCALP: normocephalic and atraumatic Resp: OTHER: Diminished air entry at bases Cardio: COMMON NORMALS: regular rate, regular rhythm, S1 normal heart sound present, S2 normal heart sound present, No gallops present (Cardio), No murmurs present (Cardio), No rub (Cardio) and Peripheral pulses 2+ throughout RATE: regular rate RHYTHM: regular rhythm HEART SOUNDS: S1 normal heart sound present and S2 normal heart sound present PERIPHERAL PULSES: Peripheral pulses 2+ throughout GI: COMMON NORMALS: Normal to inspection, nondistended, normoactive bowel sounds present, Soft to palpation, non-tender, No hepatosplenomegaly present and no masses AUSCULTATION: Yes normoactive bowel sounds PALPATION: Yes Soft to palpation and Yes No hepatosplenomegaly present RECTAL EXAM: Yes deferred Extremity: COMMON NORMALS: no clubbing, cyanosis or edema and no pedal edema Urinary Catheter Management^: Donaldson: Cath Placed During This Visit: yes Reason for Continuing Indwelling Catheter: Accurate Measurement of Urinary Output in Critically Ill Patients Urinary Catheter Date of Insertion: 02/01/21 Urinary Catheter Time of Insertion: 05:42 Data : 02/08/21 22:04 02/08/21 04:00 Micro: Microbiology 02/05/21 08:05 Gram Stain - Final Peritoneal Fluid Body Fluid Culture - Final A&P Assessment and plan (1) Acute respiratory failure with hypoxemia: -Secondary to left lower lobe pneumonia, healthcare associated pneumonia -With left loculated pleural effusion status post 2 chest tube placements -Extubated 02/06/2021 -With septic shock, resolved -With underlying COPD -With evidence of underlying DIC, resolved -Rapid Covid negative, Covid PCR negative -CT angiogram of the chest shows strandy opacities and consolidation seen in the left lung base superimposed over the pleural effusion compatible with atelectasis versus left basilar pneumonia. -MRSA nares positive -Initial CT angiogram of the chest shows stable left pleural effusion, evolving chest x-rays especially today shows patchy left lung opacity, loculated left pleural effusion -Bedside ultrasound showed loculated pleural effusions on the left -CT of the chest shows Moderate left pleural effusion with atelectasis left lower lobe. This is slightly increased from previous. Endotracheal tube with tip above the tiffany. Enteric tube with tip in the second portion of the duodenum. Slight pleural thickening right lower lobe with pleural plaques. Subsegmental atelectasis right lower lobe.Reactive anterior mediastinal and peribronchial lymph nodes.Mild thoracic curve. Chronic anterior wedging mid thoracic spine. No axillary lymphadenopathy. Adrenal glands are normal. Fatty atrophy of the pancreas. Fatty infiltration the liver. Chronic fixated right rib fractures. -Status post chest tube placement by Dr. Reeder 02/04/2021, preliminary cultures pending, Gram stain no organisms, to suction, no leak Plan: -Currently admitted in ICU -Continue BiPAP therapy for now -Has 2 chest tubes placed on the left, chest x-ray improvement in left loculated pleural effusion, chest tube, monitor output, last dose of TPA tomorrow -Continue broad-spectrum antibiotic therapy, continue Primaxin, Zyvox - nebulizer treatments, budesonide, vitamin C, zinc, vitamin D -Follow blood cultures, urine cultures, urine bacterial antigen, sputum culture, pleural culture so far negative -Continue Levophed, currently off, central line in place, maintain MAP greater than 65 -Rhabdomyolysis, 878 -Hyponatremia,133 -Potassium 3.3, will replace -Trial of Lasix this evening -Continue monitor slight scale, Levemir 15 units twice daily, A1c 8 -Evaluated by speech therapy, mechanical soft diet, however given his change in mentation and shortness of breath, continue BiPAP keep n.p.o. for now -NSTEMI, baseline 23, 6-hour 23.76,, aspirin, statin -EKG, telemetry monitoring showing sinus tachycardia, did develop paroxysmal A. fib with RVR overnight, likely paroxysmal A. fib, switch to metoprolol 50 twice daily, some of patient's tachycardia is likely physiologic response to his loculated pleural effusions which are causing some degree of fibrosis to the diaphragm and chest wall -continue home levothyroxine -CT scan abdomen pelvis shows diffuse stool throughout colon, likely secondary to multiple pain medications -Continues to have good bowel movements, change lactulose to as needed -Bilateral extremity ultrasound negative for DVT -Continue home fentanyl to prevent withdrawal - hold hydrocodone, hold gabapentin -Donaldson catheter in place -On mechanical soft diet, -Central line in place -2 left chest tubes in place -Lovenox for DVT prophylaxis -Protonix for GI prophylaxis -Full code -Dr. Reeder, Dr. Carrington on consult Plan for today, continue BiPAP, continue antibiotics, monitor clinically, Status: Acute (2) Sinus tachycardia: Status: Acute (3) Ileus: Status: Acute (4) Healthcare-associated pneumonia: Left lower lobe, organism unknown Status: Acute (5) Sepsis without septic shock: As evidenced by leukocytosis, tachycardia, respiratory failure, lactic acidosis Status: Acute (6) Acute abdominal pain: Status: Acute (7) COPD (chronic obstructive pulmonary disease): Status: Chronic Qualifiers: COPD type: COPD with acute exacerbation Qualified Code(s): J44.1 - Chronic obstructive pulmonary disease with (acute) exacerbation (8) Diabetes mellitus, type II: Status: Chronic Qualifiers: Diabetes mellitus retirement insulin use: without longwall foreman use Diabetes mellitus complication status: without complication Qualified Code(s): E11.9 - Type 2 diabetes mellitus without complications (9) Hypertension: Status: Chronic Qualifiers: Hypertension type: unspecified Qualified Code(s): I10 - Essential (primary) hypertension (10) Hypothyroidism: Status: Chronic Qualifiers: Hypothyroidism type: acquired Qualified Code(s): E03.9 - Hypothyroidism, unspecified (11) Spastic hemiplegia: Status: Chronic Qualifiers: Hemiplegia etiology: non-cerebrovascular Hemiplegia laterality: right dominant side Qualified Code(s): G81.11 - Spastic hemiplegia affecting right dominant side (12) Chronic, continuous use of opioids: Status: Acute (13) Traumatic brain injury: --According to the [facility], he can carry a conversation, ambulates in a motorized scooter, is alert oriented x3 Status: Chronic Qualifiers: Encounter type: sequela (14) DIC (disseminated intravascular coagulation): Status: Acute (15) Rhabdomyolysis: Status: Acute Qualifiers: Rhabdomyolysis type: non-traumatic Qualified Code(s): M62.82 - Rhabdomyolysis (16) Loculated pleural effusion: Status: Acute Additional A&P Information Was residing in nonskilled area of [facility], anticipate disposition back to [facility] although may require skilled depending on clinical course CODE STATUS according to facility records is full code Attestations Medical Necessity Statement*: Patient needs to be in hospital for the management of PNA Coding Level of Care Code Acute City Assessor for [facility] Fwd Diagnoses Acute respiratory failure with hypoxemia J96.01 Sinus tachycardia R00.0 Ileus K56.7 Healthcare-associated pneumonia J18.9 Sepsis without septic shock A41.9 Acute abdominal pain R10.9 COPD (chronic obstructive pulmonary disease) J44.1 COPD type: COPD with acute exacerbation Diabetes mellitus, type II E11.9 Diabetes mellitus longwall foreman insulin use: without retirement use Diabetes mellitus complication status: without complication Hypertension I10 Hypertension type: unspecified Hypothyroidism E03.9 Hypothyroidism type: acquired Spastic hemiplegia G81.11 Hemiplegia etiology: non-cerebrovascular Hemiplegia laterality: right dominant side Chronic, continuous use of opioids F11.90 Traumatic brain injury [id number] Encounter type: sequela DIC (disseminated intravascular coagulation) D65 Rhabdomyolysis M62.82 Rhabdomyolysis type: non-traumatic Loculated pleural effusion J90
[2021-02-09 16:57] LABS: Glucose Point of Care 114 mg/dL (70-110)
[2021-02-09] MEDS: nystatin powder 15 gm Btl 1 APPLIC TOPICAL (17:43)
[2021-02-09] MEDS: docusate sodium 10 mg/mL (5ml) Liq 100 MG OG-TUBE (17:44)
[2021-02-09] MEDS: atorvastatin 40 mg Tablet 20 MG PO (20:43)
[2021-02-09] MEDS: morphine 4 mg/mL SDV 1 mL 2 MG IVP (20:44)
[2021-02-09 21:09] LABS: Glucose Point of Care 233 mg/dL (70-110)
[2021-02-10] VITALS (29 sets, daily range): BP systolic 109–151; BP diastolic 62–89; PULSE 96–119; RESP 12–36; TEMP 36.6–36.8; O2SAT 85–95; BMI 28.5
[2021-02-10] MEDS: ipratropium-albuterol 3 mL Neb INHALATION ×4 (02:36→20:15)
[2021-02-10 04:41] LABS: ABG PCO2 35.7 mmHg (35-45); ABG PH Result 7.53 (7.35-7.45); Arterial Blood Gas Hematocrit 36.6 % (42-52); Base Excess ABG 6.7 mmol/L (-2.0-2.0); Blood Gas Allen Test Pos; Blood Gas Sample Type Arterial; HCO3 ABG 29.7 mmol/L (22-26); PO2 ABG 62.8 mmHg (80.0-100.0)
[2021-02-10 04:42] LABS: Blood Gas Sample Site Radial, left; Oxygen Device HAG
[2021-02-10] MEDS: levothyroxine 25 mcg Tablet PO (05:47)
[2021-02-10] MEDS: enoxaparin 40 mg/0.4 mL Syringe SUBCUT (05:48)
[2021-02-10] MEDS: linezolid premix 600 MG/300 ML PREMIX 300 MG IV ×2 (05:50→17:56)
[2021-02-10 05:56] LABS: Basophils # 0.1 10^3/uL (0.0-0.1); Basophils % 0.4 %; Eosinophils # 0.3 10^3/uL (0.0-0.8); Eosinophils % 2.5 %; Hematocrit 33.7 % (42.0-52.0); Hemoglobin 10.5 g/dL (11.7-16.6); Lymphocytes % 22.4 %; Mean Corpuscular HGB Conc 31.2 g/dL (30.0-36.0); Mean Corpuscular Hemoglobin 24.6 pg (28.0-34.0); Mean Corpuscular Volume 78.9 fl (80-94); Mean Platelet Volume 9.7 fL (7.4-10.4); Monocytes # 0.7 10^3/uL (0.2-0.9); Monocytes % 5.4 %; Neutrophils # 9.04 10^3/uL (1.8-7.7); Neutrophils % 67.4 %; Nucleated Red Blood Cells % 0.1 %; Platelet Count 429 10^3/cmm (130-400); Red Blood Count 4.27 10^6/uL (4.1-5.3); Red Cell Distribution Width 16.2 % (12.1-15.1); White Blood Count 13.4 10^3/uL (4.0-10.0)
[2021-02-10 06:09] LABS: INR 1.18 (0.8-1.2)
[2021-02-10 06:16] LABS: Alanine Aminotransferase 18 U/L (0-41); Albumin Level 2.3 g/dL (3.5-5.2); Alkaline Phosphatase 60 IU/L (40-130); Anion Gap 12.1 (5-19); Aspartate Amino Transferase 34 U/L (0-40); Blood Urea Nitrogen 11 mg/dL (6-20); Calcium 7.5 mg/dL (8.5-10.5); Carbon Dioxide 28 mmol/L (22-29); Chloride 96 mmol/L (98-107); Globulin 4.4 g/dL (1.3-4.6); Glucose 140 mg/dL (65-115); Magnesium 1.8 mg/dL (1.7-2.3); Osmolality Calculated 278 mOsm/kg (285-295); Potassium 3.1 mmol/L (3.5-5.1); Sodium 133 mmol/L (136-145); Total Bilirubin 0.4 mg/dL (0.15-1.2); Total Protein 6.7 g/dL (6.6-8.7)
[2021-02-10 06:27] LABS: NT Pro B Type Natriuretic Pept 110 pg/mL (0-125)
[2021-02-10 06:58] LABS: Slide Review Slide Review Perform
--- NOTE | 2021-02-10 07:00 | PC.NURSE ---
Addendum entered by Justo Piña RN 02/10/21 08:58: Patient experienced an uneventful night. There were no changes. After administering TPA into the chest tube, there was a total of 180 mL that was collected for the shift. Original Note: Shift Note Frequent safety and comfort rounds continue. Orders and/or nursing care completed as indicated. Patient monitored for response to intervention and treatment(s). Education provided includes[]. Patient and/or entry level sales representative [ResponseToTeaching]. Will continue to monitor.
[2021-02-10 07:27] LABS: Glucose Point of Care 181 mg/dL (70-110)
[2021-02-10] MEDS: budesonide 0.5 mg/2 mL Neb INHALATION ×2 (08:00→20:15)
[2021-02-10] MEDS: metoprolol tartrate 50 mg Tablet PO ×2 (09:00→19:54)
--- NOTE | 2021-02-10 09:08 | PC.CHAP ---
Pastoral Care Encounter/Spiritual Assessment Type of Contact [] Declined tile erector visit [] Patient/Family/Request visit [] Outpatient visit [] Follow-up visit [] Physician referral [] Code/Alert [x] Routine visit [] Staff referral [] Actively dying [x] Patient sleeping [] Family support [] [] Out of room [] Palliative care [] [] Receiving care in room [] Pre-surgical visit [] Trauma [] Long length of stay [x] ICU visit [] Other: Relational/Emotional Strength [] Patient feels connected with others/family/visitors/staff [] Distress [] Loneliness/isolation [] Abandonment Spirituality of Patient [] Person of Betina [] Attends Voodoo of their Betina [] Believes in Prayer [] Reads Bible or Episcopal materials [] There are Spiritual issues to be addressed Fraternity Adviser Interventions [x] Prayer [] Active listening [] Non-anxious presence [] Spiritual/emotional support [] Crisis/trauma care [] Spiritual counseling [] Bereavement support [] Provided bereavement packet [] Provided Bible/devotional materials [] Provided toy/stuffed animal, coloring book to patient or family member [] Provided Communion [] Anointing/[place] [] Salvation [x] Completed spiritual assessment [] Other: Impact on Illness or Injury [] Angry [] Fearful [] Anxious [] Often cries [] Exhaustion [] Unable to work [] Unable to attend roman catholic [] Unable to walk/stand [] Unable to read [] Unable to drive [] Unable to eat/drink [] Unable to sleep [] Unable to be with family [] Patient intubated [] Other: Summary patient resting well.. prayed over him,, Time spent with patient
[2021-02-10] MEDS: lidocaine 1% 5 ML in potassium chloride premix 100 ML 25 ML IV (09:31)
[2021-02-10] MEDS: aspirin 81 mg EC Tablet PO (09:32)
[2021-02-10] MEDS: pantoprazole 40 mg SDV IVP (09:32)
[2021-02-10] MEDS: cholecalciferol (vitamin D3) 1,000 unit Tablet 1000 UNIT PO (09:32)
[2021-02-10] MEDS: ascorbic acid 500 mg Tablet PO ×2 (09:32→17:57)
[2021-02-10] MEDS: zinc gluconate 50 mg Tablet PO (09:32)
[2021-02-10] MEDS: docusate sodium 10 mg/mL (5ml) Liq 100 MG OG-TUBE (09:33)
[2021-02-10] MEDS: nystatin powder 15 gm Btl 1 APPLIC TOPICAL ×2 (09:33→17:56)
[2021-02-10] MEDS: polyethylene glycol 3350 Pkt 17 gm PO (09:33)
[2021-02-10] MEDS: morphine 4 mg/mL SDV 1 mL 2 MG IVP (09:40)
--- NOTE | 2021-02-10 10:09 | PM.PN ---
Subjective Subjective: Interval history: -Patient seen multiple times today -Yesterday morning after Cathflo patient had only 60 cc output (probably in the Cathflo contents) but otherwise no output -Plan is to remove the posterior pigtail to the evening -Saturating 93% on FiO2 35 L 40% Medications: Reviewed: Yes Vitals/I&O/Wt Last Vital Signs Temp 98.5 F 02/09/21 20:00 Pulse 114 H 02/10/21 08:00 Resp 17 02/10/21 08:00 BP 135/76 02/10/21 08:00 Pulse Ox 93 02/10/21 08:00 02/09/21 02/10/21 02/10/21 22:59 06:59 14:59 Intake Total 805 / 1480 100 / 1580 Output Total 400 / 1728 530 / 2258 Balance 405 / -248 -430 / -678 Weight last 48 hrs Weight 210 lb Weight 210 lb 5 oz Physical Exam Narrative: EXAM NARRATIVE: General: lying in bed, appears more alert, he is on high flow nasal cannula HEENT:NCAT, PERRLA, EOMI Neck: Supple Lungs: Improving breath sounds on left lung, Heart: s1/s2, RRR Abd: soft, NT, ND, BS + reduced Extremities: No edema 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 alert, oriented and communicative no gross FND SKIN: no rash LDA: # CVC: Right internal jugular vein 02/01/2021 Urinary Catheter Management^: Donaldson: Cath Placed During This Visit: yes Reason for Continuing Indwelling Catheter: Accurate Measurement of Urinary Output in Critically Ill Patients Urinary Catheter Date of Insertion: 02/01/21 Urinary Catheter Time of Insertion: 05:42 Data : 02/10/21 05:37 02/10/21 05:37 Other Labs: Laboratory Results WBC 13.4 10^3/uL (4.0-10.0) H 02/10/21 05:37 Corrected WBC Cancelled 02/08/21 20:31 RBC 4.27 10^6/uL (4.1-5.3) 02/10/21 05:37 Hgb 10.5 g/dL (11.7-16.6) L 02/10/21 05:37 Hct 33.7 % (42.0-52.0) L 02/10/21 05:37 MCV 78.9 fl (80-94) L 02/10/21 05:37 MCH 24.6 pg (28.0-34.0) L 02/10/21 05:37 MCHC 31.2 g/dL (30.0-36.0) 02/10/21 05:37 RDW 16.2 % (12.1-15.1) H 02/10/21 05:37 Plt Count 429 10^3/cmm (130-400) H 02/10/21 05:37 MPV 9.7 fL (7.4-10.4) 02/10/21 05:37 Neut % (Auto) 67.4 % 02/10/21 05:37 Lymph % (Auto) 22.4 % 02/10/21 05:37 [place] % (Auto) 5.4 % 02/10/21 05:37 Eos % (Auto) 2.5 % 02/10/21 05:37 Baso % (Auto) 0.4 % 02/10/21 05:37 Neut # (Auto) 9.04 10^3/uL (1.8-7.7) H 02/10/21 05:37 Lymph # (Auto) 3.0 10^3/uL (0.8-4.8) 02/10/21 05:37 [place] # (Auto) 0.7 10^3/uL (0.2-0.9) 02/10/21 05:37 Eos # (Auto) 0.3 10^3/uL (0.0-0.8) 02/10/21 05:37 Baso # (Auto) 0.1 10^3/uL (0.0-0.1) 02/10/21 05:37 Nucleated RBC % (auto) 0.1 % 02/10/21 05:37 Total Counted 100 (0-100) 02/08/21 22:04 Atypical Lymphs % 0.0 % (0-5) 02/08/21 22:04 Absolute Neutrophils 10.5 10^3/cmm (1.4-6.5) H 02/08/21 22:04 Segmented Neutrophils 65 % 02/08/21 22:04 Abs Segm Neuts (Man) 10.2 10/cmm (1.6-7.1) H 02/08/21 22:04 Band Neutrophils 2.0 % 02/08/21 22:04 Abs Band Neuts (Man) 0.3 10^3/cmm (0.0-1.2) 02/08/21 22:04 Absolute Lymphocytes 3.6 10^3/cmm (1.2-3.4) H 02/08/21 22:04 Lymphocytes (Manual) 23 % 02/08/21 22:04 Monocytes (Manual) 8.0 % 02/08/21 22:04 Absolute Monocytes 1.3 10^3/cmm (0.1-0.6) H 02/08/21 22:04 Eosinophils (Manual) 2 % 02/08/21 22:04 Absolute Eosinophils 0.3 10^3/cmm (0.0-0.7) 02/08/21 22:04 Basophils (Manual) 0.0 % 02/08/21 22:04 Absolute Basophils 0.0 10^3/cmm (0.0-0.2) 02/08/21 22:04 Metamyelocytes Cancelled 02/08/21 20:31 Myelocytes Cancelled 02/08/21 20:31 Promyelocytes Cancelled 02/08/21 20:31 Nucleated RBCs Cancelled 02/08/21 20:31 Nucleated RBCs # 0.0 /100WBC 02/10/21 05:37 Pathologist Review Cancelled 02/08/21 20:31 Hypersegmented Polys Cancelled 02/08/21 20:31 Blast Cells Cancelled 02/08/21 20:31 Smudge Cells Cancelled 02/08/21 20:31 Toxic Granulation Cancelled 02/08/21 20:31 Toxic Vacuolation Cancelled 02/08/21 20:31 Dohle Bodies Cancelled 02/08/21 20:31 Laina Rods Cancelled 02/08/21 20:31 Platelet Estimate Normal (Normal) 02/08/21 22:04 Giant Platelets Cancelled 02/08/21 20:31 Polychromasia Cancelled 02/08/21 20:31 Hypochromasia Cancelled 02/08/21 20:31 Poikilocytosis Cancelled 02/08/21 20:31 Basophilic Stippling Cancelled 02/08/21 20:31 Anisocytosis Cancelled 02/08/21 20:31 Microcytosis Cancelled 02/08/21 20:31 Macrocytosis Cancelled 02/08/21 20:31 Spherocytes Cancelled 02/08/21 20:31 Sickle Cells Cancelled 02/08/21 20:31 Target Cells Cancelled 02/08/21 20:31 Tear Drop Cells Cancelled 02/08/21 20:31 Ovalocytes Cancelled 02/08/21 20:31 Stomatocytes Cancelled 02/08/21 20:31 Helmet Cells Cancelled 02/08/21 20:31 [place] Bodies Cancelled 02/08/21 20:31 Carmen Cells Cancelled 02/08/21 20:31 Crenated Cell Cancelled 02/08/21 20:31 Acanthocytes (Spur) Cancelled 02/08/21 20:31 Rouleaux Cancelled 02/08/21 20:31 Schistocytes Cancelled 02/08/21 20:31 RBC Morph Comment Cancelled 02/08/21 20:31 ESR 73 mm/hr (0-10) H 02/01/21 11:47 PT 15.30 SECONDS (12.1-14.9) H 02/10/21 05:37 INR 1.18 (0.8-1.2) 02/10/21 05:37 APTT 33.3 SECONDS (23.9-36.7) D 02/05/21 04:00 Fibrinogen 866 mg/dL (174-498) H 02/05/21 04:00 Fibrin Degrad Products Pos, >=40 ug/mL (NEG) H 02/05/21 04:00 D-Dimer 6.00 ug/mIFEU (0-0.59) H 02/05/21 04:00 Specimen Type Arterial 02/10/21 04:32 Sample Site Radial, left 02/10/21 04:32 ABG pH 7.53 (7.35-7.45) H 02/10/21 04:32 ABG pCO2 35.7 mmHg (35-45) 02/10/21 04:32 ABG pO2 62.8 mmHg (80.0-100.0) L 02/10/21 04:32 ABG HCO3 29.7 mmol/L (22-26) H 02/10/21 04:32 ABG Base Excess 6.7 mmol/L (-2.0-2.0) H 02/10/21 04:32 Aaron Test Pos 02/10/21 04:32 Hematocrit 36.6 % (42-52) L 02/10/21 04:32 O2 Delivery Device Hag 02/10/21 04:32 O2 Liters/Min 35.0 % 02/10/21 04:32 FiO2 40.0 % 02/10/21 04:32 Tidal Volume 0.50 02/03/21 04:45 PEEP 6.0 cmH20 02/06/21 04:43 Pressure Support 10.0 cmH2O 02/06/21 04:43 Specimen Drawn By murray 02/06/21 04:43 Abstract Writer ID Sunita 02/10/21 04:32 Sodium 133 mmol/L (136-145) L 02/10/21 05:37 Potassium 3.1 mmol/L (3.5-5.1) L 02/10/21 05:37 Chloride 96 mmol/L (98-107) L 02/10/21 05:37 Carbon Dioxide 28 mmol/L (22-29) 02/10/21 05:37 Anion Gap 12.1 (5-19) 02/10/21 05:37 BUN 11 mg/dL (6-20) 02/10/21 05:37 Creatinine 0.2 mg/dL (0.7-1.2) L 02/10/21 05:37 GFR Calculation 497.0 mL/min (90-130) H 02/10/21 05:37 Glucose 140 mg/dL (65-115) H 02/10/21 05:37 POC Glucose 181 mg/dL (70-110) H 02/10/21 07:24 Estimat Average Glucose 192 02/02/21 04:56 Hemoglobin A1c 8.3 % (4.0-6.0) H 02/02/21 04:56 Calculated Osmolality 278 mOsm/kg (285-295) L 02/10/21 05:37 Lactate 1.0 mmol/L (0.5-2.2) 02/10/21 05:37 Calcium 7.5 mg/dL (8.5-10.5) L 02/10/21 05:37 Phosphorus 2.9 mg/dL (2.5-4.5) 02/08/21 04:00 Magnesium 1.8 mg/dL (1.7-2.3) 02/10/21 05:37 Ferritin 256 ng/mL (30-400) 02/01/21 11:48 Total Bilirubin 0.4 mg/dL (0.15-1.2) 02/10/21 05:37 AST 34 U/L (0-40) 02/10/21 05:37 ALT 18 U/L (0-41) 02/10/21 05:37 Alkaline Phosphatase 60 IU/L (40-130) 02/10/21 05:37 Creatine Kinase 318 U/L (39-308) H 02/08/21 04:00 Troponin T Baseline 23 ng/L (0-15) H 02/01/21 11:48 Troponin T 120 Minute 22.42 ng/L (0-15) H 02/01/21 15:00 Delta Troponin T -0.58 ABS# (0-10) L 02/01/21 15:00 Troponin T Hi Sens 6Hr 23.76 ng/L (0-15) H 02/01/21 18:28 Troponin T Hi Sens 6Hr Delta 0.76 ng/L (0-12) 02/01/21 18:28 C-Reactive Protein 108.8 mg/L (0.0-4.9) H 02/08/21 04:00 NT-Pro-B Natriuret Pep 110 pg/mL (0-125) 02/10/21 05:37 Total Protein 6.7 g/dL (6.6-8.7) 02/10/21 05:37 Albumin 2.3 g/dL (3.5-5.2) L 02/10/21 05:37 Globulin 4.4 g/dL (1.3-4.6) 02/10/21 05:37 Lipase 16 U/L (13-60) 01/31/21 22:00 Procalcitonin 0.38 ng/mL (0-0.5) 02/08/21 04:00 TSH 0.70 uIU/mL (0.27-4.20) 02/02/21 04:56 Urine Color Yellow (Yellow) 01/31/21 21:56 Urine Appearance Clear (CLEAR) 01/31/21 21:56 Urine pH 5 (5-7) 01/31/21 21:56 Ur Specific [place] 1.025 (1.005-1.030) 01/31/21 21:56 Urine Protein 1+ (Negative) H 01/31/21 21:56 Urine Glucose (UA) Norm (Normal) 01/31/21 21:56 Urine Ketones 1+ (Negative) H 01/31/21 21:56 Urine Blood Neg (Negative) 01/31/21 21:56 Urine Nitrate Negative (Negative) 01/31/21 21:56 Urine Bilirubin 1+ (Negative) H 01/31/21 21:56 Urine Urobilinogen 8 mg/dL (Negative) H 01/31/21 21:56 Ur Leukocyte Esterase Negative (Negative) 01/31/21 21:56 Urine RBC 0-4 /hpf (0-2) H 01/31/21 21:56 Urine WBC 0-4 /hpf (0-5) H 01/31/21 21:56 Ur Squamous Epith Cells 0-4 /hpf (0-5) H 01/31/21 21:56 Amorphous Sediment Not Reportable 01/31/21 21:56 Urine Bacteria Trace /hpf (NONE) 01/31/21 21:56 Urine Mucus 2+ /hpf 01/31/21 21:56 Vancomycin Trough 22.9 ug/mL (10-15) H 02/02/21 04:56 Random Vancomycin 10.2 ug/mL (20.0-40.0) L 02/02/21 20:10 Nasal/Oral COVID-19 PCR Not detected 02/01/21 05:50 SARS-CoV-2 Ag (Rapid) Negative (Negative) 02/01/21 05:50 Blood Type O Positive 02/04/21 09:31 Rho(D) Type Positive 02/04/21 09:31 Antibody Screen Negative 02/04/21 09:31 Crossmatch See Detail 02/04/21 09:31 Impressions Abdomen/Pelvis CT 01/31/21 21:23 IMPRESSION: 1. Fatty infiltration of the liver 2. Moderate pleural effusion 3. Dense consolidation within the left lower lobe compatible with atelectasis versus pneumonia Radiation Dose CTDIVOL = (mGy): DLP = 1946.41 (mGy-cm) Chest CTA 02/01/21 00:48 IMPRESSION: 1. An enteric tube tip passes into the trachea and right lower lobe bronchi 2. Stable left pleural effusion and basilar atelectasis versus infiltrates compared with yesterday's examination. 3. Fatty infiltration of the liver Radiation Dose CTDIVOL = (mGy): DLP = 618.72 (mGy-cm) ADDENDUM: 02/01/21 0333 CRITICAL RESULT: THIS REPORT CONTAINS FINDINGS THAT MAY BE CRITICAL TO PATIENT CARE. The findings were verbally communicated via telephone conference with TRISTA Brown at 3:31 AM CDT on 02/01/2021. The findings were acknowledged and understood. Radiation Dose CTDIVOL = (mGy): DLP = 618.72 (mGy-cm) KUB X-Ray 02/03/21 06:00 Impression: Moderate generalized ileus. Chest CT 02/04/21 04:32 IMPRESSION: 1. Moderate left pleural effusion with compressive atelectasis left lower lobe. This is increased slightly from previous. 2. Pleural thickening right lower lobe with pleural plaques and subsegmental atelectasis. 3. Enteric tube repositioned with tip in the second portion the duodenum. 4. Diffuse fatty infiltration of the liver. 5. No other significant changes. Chest X-Ray 02/09/21 09:02 IMPRESSION: Evolving abnormal chest with interval changes as above. Micro: Microbiology 02/05/21 08:05 Gram Stain - Final Peritoneal Fluid Body Fluid Culture - Final A&P Assessment and plan (1) Acute respiratory failure with hypoxia: Status: Acute (2) Loculated pleural effusion: Status: Acute (3) MRSA pneumonia: Status: Acute Qualifiers: Laterality: unspecified laterality Lung location: unspecified part of lung Qualified Code(s): J15.212 - Pneumonia due to Methicillin resistant Staphylococcus aureus (4) Sepsis without septic shock: Status: Acute (5) Ileus: Status: Acute (6) COPD (chronic obstructive pulmonary disease): Status: Chronic Qualifiers: COPD type: COPD with acute exacerbation Qualified Code(s): J44.1 - Chronic obstructive pulmonary disease with (acute) exacerbation (7) Rhabdomyolysis: Status: Acute Qualifiers: Rhabdomyolysis type: non-traumatic Qualified Code(s): M62.82 - Rhabdomyolysis (8) Traumatic brain injury: Status: Chronic Qualifiers: Encounter type: sequela (9) Spastic hemiplegia: Status: Chronic Qualifiers: Hemiplegia etiology: non-cerebrovascular Hemiplegia laterality: right dominant side Qualified Code(s): G81.11 - Spastic hemiplegia affecting right dominant side (10) GERD (gastroesophageal reflux disease): Status: Chronic Qualifiers: Esophagitis presence: esophagitis presence not specified Qualified Code(s): K21.9 - Gastro-esophageal reflux disease without esophagitis (11) Diabetes mellitus, type II: Status: Chronic Qualifiers: 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: without 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 Diabetes mellitus complication status: without complication Qualified Code(s): E11.9 - Type 2 diabetes mellitus without complications #Acute respiratory failure with hypoxia-extubated 02/06/2021 and currently requiring HFNC 35 L 40% #Loculated left pleural effusion-likely secondary to hospital-acquired pneumonia versus aspiration #MRSA nares positive ; presented with septic shock-currently off pressors #History of COPD #History of traumatic brain injury and spastic hemiplegia-- Communicative as per #Diabetes mellitus-moderately controlled sugars #Rhabdomyolysis-improving #Ileus secondary to medication-on bowel regimen -Currently afebrile and improving WBC; admission procalcitonin 6.9 -MRSA nares positive; so far all other cultures negative including left fluid cultures -Currently covered with linezolid, imipenem (started on 02/01/2021)-can change to p.o. Augmentin and give extended course for 2 weeks -CT chest 02/01/2021 showed left pleural effusion and bibasilar atelectasis versus infiltrates -CT surgery for VATS but due to patient being a poor surgical candidate-chest tube was placed anteriorly for the CT surgeon which drained total of 1050 cc of serous fluid -removed on 02/09/2021 -Subsequent imaging showed significant pockets and so accordingly 14 [place] pigtail was placed posteriorly and TPA was given for 2 days-patient has active output-appeared bloody (with stable H&H) subsequent -no significant output over last 24 hours-I will remove the pigtail as well -Chest x-ray showing significant in improvement left-sided pleural effusion but with residual left lateral pleural effusion versus pleural peel -Alert and communicates well-currently on high flow 35 L 40% FiO2 -ABG 7.5 / on 35 L and 40% HFNC -On DuoNeb and Pulmicort scheduled nebulization -Aspirin/Lipitor -Improving rhabdomyolysis-CK downtrending -On bowel regimen lactulose and MiraLAX -On levothyroxine for hypothyroidism -Sugars moderately controlled and pt is on detemir 15 u q12 hr and scale coverage - honey thickened liquids-advance diet as tolerated -PPI for GI prophylaxis -Lovenox 40 mg for DVT prophylaxis -DNR -Guarded prognosis -POA updated Attestations Medical Necessity Statement*: Patient requires hospitalization for acute respiratory failure with hypoxia secondary to healthcare associate pneumonia, loculated left pleural effusion Time Spent in Patient Care: Greater than 35 minutes (>than 50% of time spent in counselling and/or direct pt care on unit). Critical Care Time: The high probability of a clinically significant, sudden or life threatening deterioration of the patient's [neurological, pulmonary] system(s) required my full and direct attention, intervention and personal management. The critical care time is as shown. 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 Patient Type Established History Comprehensive Exam Comprehensive Medical Decision Making High Complexity Diagnoses Acute respiratory failure with hypoxia J96.01 Loculated pleural effusion J90 MRSA pneumonia J15.212 Laterality: unspecified laterality Lung location: unspecified part of lung Sepsis without septic shock A41.9 Ileus K56.7 COPD (chronic obstructive pulmonary disease) J44.1 COPD type: COPD with acute exacerbation Rhabdomyolysis M62.82 Rhabdomyolysis type: non-traumatic Traumatic brain injury [id number] Encounter type: sequela Spastic hemiplegia G81.11 Hemiplegia etiology: non-cerebrovascular Hemiplegia laterality: right dominant side GERD (gastroesophageal reflux disease) K21.9 Esophagitis presence: esophagitis presence not specified Diabetes mellitus, type II E11.9 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
--- NOTE | 2021-02-10 12:10 | PC.NUTR ---
Nutrition follow up: Po intakes averaging 25% of meals. Nurse reports pt enjoys strawberry/chocolate Ensure. Will add with meals to ensure daily provision. Noted Ensure should be very cold to be at nectar consistency. Recommend to encourage po intakes and provide preferences as appropriate within PROJECT FACILITATOR recommendations. See full RD assessment for further details.
[2021-02-10 12:41] LABS: Glucose Point of Care 132 mg/dL (70-110)
--- NOTE | 2021-02-10 13:00 | XR_ITS ---
WS: [id number] XR chest 1V portable [id number] REASON FOR EXAM: Chest tube FINDINGS: Small bore drainage catheter overlying the left lower chest remain in position. Compared to the examination of 02/09/2021 the lungs are better aerated and expanded. There appears to been some clearing of the consolidation in the left lower lung although residual still remains. No new findings. XR/XR chest 1V portable [id number] IMPRESSION: Abnormal chest with some interval improvement.
--- NOTE | 2021-02-10 13:06 | P.PN_ITS ---
Subjective Subjective: Interval history: Patient was seen and examined this morning.Currently he is saturating well on HHFONC @ 35 Ls and 40% FIO2 . Left posterior pigtail miinimal drainage. Plan is to remove the pigtail. Communicating well, much more alert and awake today. Medications: Reviewed: Yes Medication Review Details: I personally reviewed home medication list and medications received day of admission thus far. Vitals/I&O/Wt Last Vital Signs Temp 98.3 F 02/10/21 10:00 Pulse 100 02/10/21 12:00 Resp 14 02/10/21 12:00 BP 137/89 02/10/21 12:00 Pulse Ox 90 02/10/21 11:26 02/09/21 02/10/21 02/10/21 22:59 06:59 14:59 Intake Total 805 / 1480 200 / 1680 350 / 350 Output Total 400 / 1728 530 / 2258 25 / 25 Balance 405 / -248 -330 / -578 325 / 325 Weight last 48 hrs Weight 95.254 kg Weight 95.396 kg Physical Exam Narrative: EXAM NARRATIVE: Alert and awake follows Command. HENMT: COMMON NORMALS: normocephalic and atraumatic HEAD & SCALP: normocephalic and atraumatic Resp: OTHER: Diminished air entry at bases Cardio: COMMON NORMALS: regular rate, regular rhythm, S1 normal heart sound present, S2 normal heart sound present, No gallops present (Cardio), No murmurs present (Cardio), No rub (Cardio) and Peripheral pulses 2+ throughout RATE: regular rate RHYTHM: regular rhythm HEART SOUNDS: S1 normal heart sound present and S2 normal heart sound present PERIPHERAL PULSES: Peripheral pulses 2+ throughout GI: COMMON NORMALS: Normal to inspection, nondistended, normoactive bowel sounds present, Soft to palpation, non-tender, No hepatosplenomegaly present and no masses AUSCULTATION: Yes normoactive bowel sounds PALPATION: Yes Soft to palpation and Yes No hepatosplenomegaly present RECTAL EXAM: Yes deferred Extremity: COMMON NORMALS: no clubbing, cyanosis or edema and no pedal edema Urinary Catheter Management^: Donaldson: Cath Placed During This Visit: yes Reason for Continuing Indwelling Catheter: Accurate Measurement of Urinary Output in Critically Ill Patients Urinary Catheter Date of Insertion: 02/01/21 Urinary Catheter Time of Insertion: 05:42 Data : 02/10/21 05:37 02/10/21 05:37 Micro: Microbiology 02/05/21 08:05 Gram Stain - Final Peritoneal Fluid Body Fluid Culture - Final A&P Assessment and plan (1) Acute respiratory failure with hypoxemia: -Secondary to left lower lobe pneumonia, healthcare associated pneumonia -With left loculated pleural effusion status post 2 chest tube placements -Extubated 02/06/2021 -With septic shock, resolved -With underlying COPD -With evidence of underlying DIC, resolved -Rapid Covid negative, Covid PCR negative -CT angiogram of the chest shows strandy opacities and consolidation seen in the left lung base superimposed over the pleural effusion compatible with atelectasis versus left basilar pneumonia. -MRSA nares positive -Initial CT angiogram of the chest shows stable left pleural effusion, evolving chest x-rays especially today shows patchy left lung opacity, loculated left pleural effusion -Bedside ultrasound showed loculated pleural effusions on the left -CT of the chest shows Moderate left pleural effusion with atelectasis left lower lobe. This is slightly increased from previous. Endotracheal tube with tip above the tiffany. Enteric tube with tip in the second portion of the duodenum. Slight pleural thickening right lower lobe with pleural plaques. Subsegmental atelectasis right lower lobe.Reactive anterior mediastinal and peribronchial lymph nodes.Mild thoracic curve. Chronic anterior wedging mid thoracic spine. No axillary lymphadenopathy. Adrenal glands are normal. Fatty atrophy of the pancreas. Fatty infiltration the liver. Chronic fixated right rib fractures. -Status post chest tube placement by Dr. Reeder 02/04/2021, preliminary cultures pending, Gram stain no organisms, to suction, no leak Plan: -Currently admitted in ICU -Continue BiPAP therapy for now -Has 2 chest tubes placed on the left, chest x-ray improvement in left loculated pleural effusion, chest tube, monitor output, last dose of TPA tomorrow -Continue broad-spectrum antibiotic therapy, continue Primaxin, Zyvox - nebulizer treatments, budesonide, vitamin C, zinc, vitamin D -Follow blood cultures, urine cultures, urine bacterial antigen, sputum culture, pleural culture so far negative -Continue Levophed, currently off, central line in place, maintain MAP greater than 65 -Rhabdomyolysis, 878 -Hyponatremia,133 -Potassium 3.3, will replace -Trial of Lasix this evening -Continue monitor slight scale, Levemir 15 units twice daily, A1c 8 -Evaluated by speech therapy, mechanical soft diet, however given his change in mentation and shortness of breath, continue BiPAP keep n.p.o. for now -NSTEMI, baseline 23, 6-hour 23.76,, aspirin, statin -EKG, telemetry monitoring showing sinus tachycardia, did develop paroxysmal A. fib with RVR overnight, likely paroxysmal A. fib, switch to metoprolol 50 twice daily, some of patient's tachycardia is likely physiologic response to his loculated pleural effusions which are causing some degree of fibrosis to the diaphragm and chest wall -continue home levothyroxine -CT scan abdomen pelvis shows diffuse stool throughout colon, likely secondary to multiple pain medications -Continues to have good bowel movements, change lactulose to as needed -Bilateral extremity ultrasound negative for DVT -Continue home fentanyl to prevent withdrawal - hold hydrocodone, hold gabapentin -Donaldson catheter in place -On mechanical soft diet, -Central line in place -2 left chest tubes in place -Lovenox for DVT prophylaxis -Protonix for GI prophylaxis -Full code -Dr. Reeder, Dr. Carrington on consult Plan for today, continue BiPAP, continue antibiotics, monitor clinically, Status: Acute (2) Sinus tachycardia: Status: Acute (3) Ileus: Status: Acute (4) Healthcare-associated pneumonia: Left lower lobe, organism unknown Status: Acute (5) Sepsis without septic shock: As evidenced by leukocytosis, tachycardia, respiratory failure, lactic acidosis Status: Acute (6) Acute abdominal pain: Status: Acute (7) COPD (chronic obstructive pulmonary disease): Status: Chronic Qualifiers: COPD type: COPD with acute exacerbation Qualified Code(s): J44.1 - Chronic obstructive pulmonary disease with (acute) exacerbation (8) Diabetes mellitus, type II: Status: Chronic Qualifiers: Diabetes mellitus complication status: without complication Diabetes mellitus intermission coordinator insulin use: without chcf use Qualified Code(s): E11.9 - Type 2 diabetes mellitus without complications (9) Hypertension: Status: Chronic Qualifiers: Hypertension type: unspecified Qualified Code(s): I10 - Essential (primary) hypertension (10) Hypothyroidism: Status: Chronic Qualifiers: Hypothyroidism type: acquired Qualified Code(s): E03.9 - Hypothyroidism, unspecified (11) Spastic hemiplegia: Status: Chronic Qualifiers: Hemiplegia etiology: non-cerebrovascular Hemiplegia laterality: right dominant side Qualified Code(s): G81.11 - Spastic hemiplegia affecting right dominant side (12) Chronic, continuous use of opioids: Status: Acute (13) 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, he can carry a conversation, ambulates in a motorized scooter, is alert oriented x3 Status: Chronic Qualifiers: Encounter type: sequela (14) DIC (disseminated intravascular coagulation): Status: Acute (15) Rhabdomyolysis: Status: Acute Qualifiers: Rhabdomyolysis type: non-traumatic Qualified Code(s): M62.82 - Rhabdomyolysis (16) Loculated pleural effusion: Status: Acute Additional A&P Information Was residing in nonskilled area of [facility], anticipate disposition back to [facility] although may require skilled depending on clinical course CODE STATUS according to facility records is full code Attestations Medical Necessity Statement*: Patient needs to be in hospital for management of pneumonia Coding Level of Care Code Acute Flush Tester for Chg Fwd Exam Expanded Problem Focused Diagnoses Acute respiratory failure with hypoxemia J96.01 Sinus tachycardia R00.0 Ileus K56.7 Healthcare-associated pneumonia J18.9 Sepsis without septic shock A41.9 Acute abdominal pain R10.9 COPD (chronic obstructive pulmonary disease) J44.1 COPD type: COPD with acute exacerbation Diabetes mellitus, type II E11.9 Diabetes mellitus complication status: without complication Diabetes mellitus chcf insulin use: without chcf use Hypertension I10 Hypertension type: unspecified Hypothyroidism E03.9 Hypothyroidism type: acquired Spastic hemiplegia G81.11 Hemiplegia etiology: non-cerebrovascular Hemiplegia laterality: right dominant side Chronic, continuous use of opioids F11.90 Traumatic brain injury S06.9X9A Encounter type: sequela DIC (disseminated intravascular coagulation) D65 Rhabdomyolysis M62.82 Rhabdomyolysis type: non-traumatic Loculated pleural effusion J90
--- NOTE | 2021-02-10 16:20 | PC.NURSE ---
Pt update/family contact: Pt is more alert and oriented today. The pt was able to tell me he was in the hospital and his chewing tobacco is his closet at [facility]. After visiting with him for a while I asked him if he would like me to call anyone to talk to them for him. He stated, Please don't call Hailee. I offered to call another family member for him and he stated, No. I'm doing better and no phone calls need to be made.
[2021-02-10 17:37] LABS: Glucose Point of Care 118 mg/dL (70-110)
--- NOTE | 2021-02-10 18:07 | PC.NURSE ---
D/C chest tube Second chest tube with pigtail to left upper chest removed by Dr Souza. Vaseline gauze and island dressing applied. Pt tolerated well.
[2021-02-10] MEDS: atorvastatin 40 mg Tablet 20 MG PO (20:30)
--- NOTE | 2021-02-10 20:37 | PC.NURSE ---
Alteplase Alteplase unable to be administered due to lack of chest tube. See MAR.
--- NOTE | 2021-02-10 20:43 | PC.NURSE ---
Confusion Upon assessment of patient, patient oriented to self only. Patient states that he is currently at [facility], and that his tobacco and phone are present, when the items have not been present through current admission. Reorientation provided as needed.
[2021-02-10 20:59] LABS: Glucose Point of Care 116 mg/dL (70-110)
[2021-02-11] VITALS (28 sets, daily range): BP systolic 123–152; BP diastolic 65–96; PULSE 97–120; RESP 12–23; TEMP 36.4–36.8; O2SAT 92–98; BMI 28.3
[2021-02-11] MEDS: morphine 4 mg/mL SDV 1 mL 2 MG IVP (02:13)
--- NOTE | 2021-02-11 02:40 | PC.NURSE ---
Pain Patient rated pain at a level 5 on a numeric 1-10 scale following morphine administration. Upon inquiry, patient stated that a level 5 is an acceptable/tolerable level of pain for him.
[2021-02-11] MEDS: ipratropium-albuterol 3 mL Neb INHALATION ×4 (02:45→20:16)
[2021-02-11 04:07] LABS: Basophils % 0.3 %; Eosinophils # 0.4 10^3/uL (0.0-0.8); Eosinophils % 3.7 %; Lymphocytes # 2.8 10^3/uL (0.8-4.8); Lymphocytes % 25.3 %; Mean Corpuscular HGB Conc 31.3 g/dL (30.0-36.0); Mean Corpuscular Hemoglobin 24.7 pg (28.0-34.0); Mean Platelet Volume 9.8 fL (7.4-10.4); Monocytes # 0.7 10^3/uL (0.2-0.9); Neutrophils # 7.03 10^3/uL (1.8-7.7); Neutrophils % 63.6 %; Nucleated Red Blood Cells % 0 %; Platelet Count 394 10^3/cmm (130-400); Red Blood Count 4.05 10^6/uL (4.1-5.3); Red Cell Distribution Width 16.1 % (12.1-15.1); White Blood Count 11.1 10^3/uL (4.0-10.0)
[2021-02-11 04:24] LABS: Alanine Aminotransferase 19 U/L (0-41); Albumin Level 2.4 g/dL (3.5-5.2); Alkaline Phosphatase 59 IU/L (40-130); Anion Gap 10.9 (5-19); Aspartate Amino Transferase 30 U/L (0-40); Blood Urea Nitrogen 6 mg/dL (6-20); Calcium 7.4 mg/dL (8.5-10.5); Carbon Dioxide 27 mmol/L (22-29); Chloride 100 mmol/L (98-107); Globulin 4.1 g/dL (1.3-4.6); Glomerular Filtration Rate 311.3 mL/min (90-130); Glucose 73 mg/dL (65-115); Magnesium 1.9 mg/dL (1.7-2.3); Osmolality Calculated 276 mOsm/kg (285-295); Sodium 135 mmol/L (136-145); Total Bilirubin 0.5 mg/dL (0.15-1.2); Total Protein 6.5 g/dL (6.6-8.7)
[2021-02-11 04:50] LABS: Potassium 2.9 mmol/L (3.5-5.1)
--- NOTE | 2021-02-11 04:53 | PC.NURSE ---
Critical Lab Critical potassium lab of 2.9 reported to nurse at 0450. Dr. Burk called and made aware. In response, Dr. Burk gave an order for potassium chloride IV. Orders completed per JUL.
[2021-02-11] MEDS: lidocaine 1% 5 ML in potassium chloride premix 100 ML 25 ML IV ×2 (05:09→09:34)
[2021-02-11] MEDS: enoxaparin 40 mg/0.4 mL Syringe SUBCUT (05:15)
[2021-02-11] MEDS: linezolid premix 600 MG/300 ML PREMIX 300 MG IV ×2 (05:38→17:27)
[2021-02-11] MEDS: levothyroxine 25 mcg Tablet PO (06:17)
--- NOTE | 2021-02-11 06:21 | XR_ITS ---
WS: [id number] XR chest 1V portable [id number] REASON FOR EXAM: Followup FINDINGS: Right internal jugular central venous line remains in place. Prominent central bronchovascular markings with vague increased opacity in the left lower lung. Compared to the examination of 02/10/2021, the small bore chest tube overlying the lower left hemithor ax is been removed. No pneumothorax. The chest is otherwise unchanged. XR/XR chest 1V portable [id number] IMPRESSION: Stable abnormal chest post removal of left chest drainage tube.
--- NOTE | 2021-02-11 07:04 | PC.NURSE ---
Shift Note Frequent safety and comfort rounds continue. Orders and/or nursing care completed as indicated. Patient monitored for response to intervention and treatment(s). Education provided includes reorientation to surroundings, information about medications, and fall risk precautions. Patient and/or assistance representative. Patient verbalized understanding but needs reinforcement.
[2021-02-11 07:46] LABS: Glucose Point of Care 120 mg/dL (70-110)
[2021-02-11] MEDS: zinc gluconate 50 mg Tablet PO (08:04)
[2021-02-11] MEDS: cholecalciferol (vitamin D3) 1,000 unit Tablet 1000 UNIT PO (08:04)
[2021-02-11] MEDS: ascorbic acid 500 mg Tablet PO ×2 (08:04→17:27)
[2021-02-11] MEDS: metoprolol tartrate 50 mg Tablet PO ×2 (08:04→20:02)
[2021-02-11] MEDS: aspirin 81 mg EC Tablet PO (08:04)
[2021-02-11] MEDS: nystatin powder 15 gm Btl 1 APPLIC TOPICAL ×2 (08:04→17:27)
[2021-02-11] MEDS: pantoprazole 40 mg SDV IVP (08:04)
[2021-02-11] MEDS: polyethylene glycol 3350 Pkt 17 gm PO (08:05)
[2021-02-11] MEDS: docusate sodium 10 mg/mL (5ml) Liq 100 MG OG-TUBE ×2 (08:06→17:27)
[2021-02-11] MEDS: budesonide 0.5 mg/2 mL Neb INHALATION ×2 (08:42→20:16)
[2021-02-11 12:03] LABS: Glucose Point of Care 92 mg/dL (70-110)
--- NOTE | 2021-02-11 15:27 | P.PN_ITS ---
Subjective Subjective: Interval history: Patient was seen and examined this morning.Currently he is saturating well on 5 ls oxygen.Was seen sitting in the chair all day.Pigtail catheter removed. Medications: Reviewed: Yes Medication Review Details: I personally reviewed home medication list and medications received day of admission thus far. Vitals/I&O/Wt Last Vital Signs Temp 97.6 F 02/11/21 04:20 Pulse 100 02/11/21 14:09 Resp 16 02/11/21 14:05 BP 137/84 02/11/21 14:00 Pulse Ox 97 02/11/21 14:05 02/11/21 02/11/21 02/11/21 06:59 14:59 22:59 Intake Total 200 / 1155 610 / 610 Output Total 900 / 1475 Balance -700 / -320 610 / 610 Weight last 48 hrs Weight 94.801 kg Weight 95.254 kg Physical Exam Narrative: EXAM NARRATIVE: Alert and awake follows Command. HENMT: COMMON NORMALS: normocephalic and atraumatic HEAD & SCALP: normocephalic and atraumatic Resp: OTHER: Diminished air entry at bases Cardio: COMMON NORMALS: regular rate, regular rhythm, S1 normal heart sound present, S2 normal heart sound present, No gallops present (Cardio), No murmurs present (Cardio), No rub (Cardio) and Peripheral pulses 2+ throughout RATE: regular rate RHYTHM: regular rhythm HEART SOUNDS: S1 normal heart sound present and S2 normal heart sound present PERIPHERAL PULSES: Peripheral pulses 2+ throughout GI: COMMON NORMALS: Normal to inspection, nondistended, normoactive bowel sounds present, Soft to palpation, non-tender, No hepatosplenomegaly present and no masses AUSCULTATION: Yes normoactive bowel sounds PALPATION: Yes Soft to palpation and Yes No hepatosplenomegaly present RECTAL EXAM: Yes deferred Extremity: COMMON NORMALS: no clubbing, cyanosis or edema and no pedal edema Urinary Catheter Management^: Donaldson: Cath Placed During This Visit: yes Reason for Continuing Indwelling Catheter: Accurate Measurement of Urinary Output in Critically Ill Patients Urinary Catheter Date of Insertion: 02/01/21 Urinary Catheter Time of Insertion: 05:42 Data : 02/11/21 03:45 02/11/21 03:45 A&P Assessment and plan (1) Acute respiratory failure with hypoxemia: -Secondary to left lower lobe pneumonia, healthcare associated pneumonia -With left loculated pleural effusion status post 2 chest tube placements -Extubated 02/06/2021 -With septic shock, resolved -With underlying COPD -With evidence of underlying DIC, resolved -Rapid Covid negative, Covid PCR negative -CT angiogram of the chest shows strandy opacities and consolidation seen in the left lung base superimposed over the pleural effusion compatible with atelectasis versus left basilar pneumonia. -MRSA nares positive -Initial CT angiogram of the chest shows stable left pleural effusion, evolving chest x-rays especially today shows patchy left lung opacity, loculated left pleural effusion -Bedside ultrasound showed loculated pleural effusions on the left -CT of the chest shows Moderate left pleural effusion with atelectasis left lower lobe. This is slightly increased from previous. Endotracheal tube with tip above the tiffany. Enteric tube with tip in the second portion of the duodenum. Slight pleural thickening right lower lobe with pleural plaques. Subsegmental atelectasis right lower lobe.Reactive anterior mediastinal and peribronchial lymph nodes.Mild thoracic curve. Chronic anterior wedging mid thoracic spine. No axillary lymphadenopathy. Adrenal glands are normal. Fatty atrophy of the pancreas. Fatty infiltration the liver. Chronic fixated right rib fractures. -Status post chest tube placement by Dr. Reeder 02/04/2021, preliminary cultures pending, Gram stain no organisms, to suction, no leak Plan: -Currently admitted in ICU -Continue BiPAP therapy for now -Has 2 chest tubes placed on the left, chest x-ray improvement in left loculated pleural effusion, chest tube, monitor output, last dose of TPA tomorrow -Continue broad-spectrum antibiotic therapy, continue Primaxin, Zyvox - nebulizer treatments, budesonide, vitamin C, zinc, vitamin D -Follow blood cultures, urine cultures, urine bacterial antigen, sputum culture, pleural culture so far negative -Continue Levophed, currently off, central line in place, maintain MAP greater than 65 -Rhabdomyolysis, 878 -Hyponatremia,133 -Potassium 3.3, will replace -Trial of Lasix this evening -Continue monitor slight scale, Levemir 15 units twice daily, A1c 8 -Evaluated by speech therapy, mechanical soft diet, however given his change in mentation and shortness of breath, continue BiPAP keep n.p.o. for now -NSTEMI, baseline 23, 6-hour 23.76,, aspirin, statin -EKG, telemetry monitoring showing sinus tachycardia, did develop paroxysmal A. fib with RVR overnight, likely paroxysmal A. fib, switch to metoprolol 50 twice daily, some of patient's tachycardia is likely physiologic response to his loculated pleural effusions which are causing some degree of fibrosis to the diaphragm and chest wall -continue home levothyroxine -CT scan abdomen pelvis shows diffuse stool throughout colon, likely secondary to multiple pain medications -Continues to have good bowel movements, change lactulose to as needed -Bilateral extremity ultrasound negative for DVT -Continue home fentanyl to prevent withdrawal - hold hydrocodone, hold gabapentin -Donaldson catheter in place -On mechanical soft diet, -Central line in place -2 left chest tubes in place -Lovenox for DVT prophylaxis -Protonix for GI prophylaxis -Full code -Dr. Reeder, Dr. Carrington on consult Plan for today, continue BiPAP, continue antibiotics, monitor clinically, Status: Acute (2) Sinus tachycardia: Status: Acute (3) Ileus: Status: Acute (4) Healthcare-associated pneumonia: Left lower lobe, organism unknown Status: Acute (5) Sepsis without septic shock: As evidenced by leukocytosis, tachycardia, respiratory failure, lactic acidosis Status: Acute (6) Acute abdominal pain: Status: Acute (7) COPD (chronic obstructive pulmonary disease): Status: Chronic Qualifiers: COPD type: COPD with acute exacerbation Qualified Code(s): J44.1 - Chronic obstructive pulmonary disease with (acute) exacerbation (8) Diabetes mellitus, type II: Status: Chronic Qualifiers: Diabetes mellitus long-term insulin use: without long-term use Diabetes mellitus complication status: without complication Qualified Code(s): E11.9 - Type 2 diabetes mellitus without complications (9) Hypertension: Status: Chronic Qualifiers: Hypertension type: unspecified Qualified Code(s): I10 - Essential (primary) hypertension (10) Hypothyroidism: Status: Chronic Qualifiers: Hypothyroidism type: acquired Qualified Code(s): E03.9 - Hypothyroidism, unspecified (11) Spastic hemiplegia: Status: Chronic Qualifiers: Hemiplegia etiology: non-cerebrovascular Hemiplegia laterality: right dominant side Qualified Code(s): G81.11 - Spastic hemiplegia affecting right dominant side (12) Chronic, continuous use of opioids: Status: Acute (13) 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, he can carry a conversation, ambulates in a motorized scooter, is alert oriented x3 Status: Chronic Qualifiers: Encounter type: sequela (14) DIC (disseminated intravascular coagulation): Status: Acute (15) Rhabdomyolysis: Status: Acute Qualifiers: Rhabdomyolysis type: non-traumatic Qualified Code(s): M62.82 - Rhabdomyolysis (16) Loculated pleural effusion: Status: Acute Additional A&P Information Was residing in nonskilled area of [facility], anticipate disposition back to [facility] although may require skilled depending on clinical course CODE STATUS according to facility records is full code Attestations Medical Necessity Statement*: Patient needs to be in the hospital for management of pneumonia. Anticipated discharge tomorrow. 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
[2021-02-11 17:54] LABS: Glucose Point of Care 111 mg/dL (70-110)
--- NOTE | 2021-02-11 18:25 | PC.NURSE ---
Shift Note Frequent safety and comfort rounds continue. Orders and nursing care completed as indicated. Patient received 80meq of IV potassium. Physical therapy worked with patient to and got patient up to chair with full assistance. Pt sat in chair most for 8 hours of today. Patient received bed bath and linen change this shift. Physician rounding on patient late this afternoon plans to discharge patient back to SNF tomorrow. This nurse spoke with family via telephone and updated on plan of care. Hailee verbalized understanding. Patient monitored for response to intervention and treatments. Will continue to monitor.
--- NOTE | 2021-02-11 20:40 | PC.NURSE ---
Ileana Lift Ileana Lift used to transfer patient from chair to bed per physical therapy notes. Patient tolerated movement well.
[2021-02-11 21:14] LABS: Glucose Point of Care 113 mg/dL (70-110)
[2021-02-11] MEDS: atorvastatin 40 mg Tablet 20 MG PO (21:19)
[2021-02-12] VITALS (23 sets, daily range): BP systolic 108–168; BP diastolic 65–85; PULSE 94–112; RESP 12–24; TEMP 36.9–37.6; O2SAT 92–98; BMI 28.3
--- NOTE | 2021-02-12 02:40 | PC.NURSE ---
Nasal Cannula Due to patient's oxygen saturation remaining in the upper 90s as indicated in documentation, nasal cannula oxygen titrated down from 4 L/min to 2L/min. Following the change, patient's oxygen saturation has remained in the upper 90's.
[2021-02-12] MEDS: ipratropium-albuterol 3 mL Neb INHALATION ×2 (02:46→08:04)
[2021-02-12 03:45] LABS: Basophils # 0.1 10^3/uL (0.0-0.1); Basophils % 0.4 %; Eosinophils # 0.5 10^3/uL (0.0-0.8); Eosinophils % 4.8 %; Hematocrit 31.8 % (42.0-52.0); Hemoglobin 9.8 g/dL (11.7-16.6); Lymphocytes # 2.8 10^3/uL (0.8-4.8); Lymphocytes % 24.6 %; Mean Corpuscular HGB Conc 30.8 g/dL (30.0-36.0); Mean Corpuscular Hemoglobin 24.6 pg (28.0-34.0); Mean Corpuscular Volume 79.9 fl (80-94); Mean Platelet Volume 10.1 fL (7.4-10.4); Monocytes # 0.6 10^3/uL (0.2-0.9); Monocytes % 5.7 %; Neutrophils # 7.16 10^3/uL (1.8-7.7); Neutrophils % 63.4 %; Nucleated Red Blood Cells % 0 %; Platelet Count 409 10^3/cmm (130-400); Red Blood Count 3.98 10^6/uL (4.1-5.3); Red Cell Distribution Width 16.2 % (12.1-15.1); White Blood Count 11.3 10^3/uL (4.0-10.0)
[2021-02-12 04:26] LABS: Alanine Aminotransferase 18 U/L (0-41); Albumin Level 2.2 g/dL (3.5-5.2); Alkaline Phosphatase 64 IU/L (40-130); Anion Gap 13.1 (5-19); Aspartate Amino Transferase 25 U/L (0-40); Blood Urea Nitrogen 6 mg/dL (6-20); Calcium 7.1 mg/dL (8.5-10.5); Carbon Dioxide 25 mmol/L (22-29); Chloride 100 mmol/L (98-107); Globulin 4.4 g/dL (1.3-4.6); Glomerular Filtration Rate 311.3 mL/min (90-130); Glucose 71 mg/dL (65-115); Osmolality Calculated 276 mOsm/kg (285-295); Potassium 3.1 mmol/L (3.5-5.1); Sodium 135 mmol/L (136-145); Total Bilirubin 0.5 mg/dL (0.15-1.2); Total Protein 6.6 g/dL (6.6-8.7)
[2021-02-12] MEDS: levothyroxine 25 mcg Tablet PO (05:30)
[2021-02-12] MEDS: enoxaparin 40 mg/0.4 mL Syringe SUBCUT (05:30)
[2021-02-12] MEDS: linezolid premix 600 MG/300 ML PREMIX 300 MG IV (05:30)
--- NOTE | 2021-02-12 05:40 | PC.NURSE ---
Pulse Ox Around 1999 last night patient removed disposable pulse ox and removed the sensor from the wires. Another one was placed on patient with education on what this sensor does and how important it is to use it. Patient removed the pulse ox multiple times, but when prompted patient put it back on. To distract patient from its use, the pulse ox was wrapped in coban. Coban and education was ineffective; patient once again removed the sensor from the wires. Reusable pulse ox applied and education provided again while needing reinforcement in the future.
--- NOTE | 2021-02-12 06:52 | PC.NURSE ---
Shift Note Frequent safety and comfort rounds continue. Orders and/or nursing care completed as indicated. Patient monitored for response to intervention and treatment(s). Education provided includes appropriate activity levels for patient, foods allowed in patient diet, in addition to what a pulse ox is utilized for and how important its continued use is. Patient remains only oriented to self and needs reinforcement of surroundings and teachings.
[2021-02-12 07:24] LABS: Glucose Point of Care 102 mg/dL (70-110)
[2021-02-12] MEDS: pantoprazole 40 mg SDV IVP (08:00)
[2021-02-12] MEDS: zinc gluconate 50 mg Tablet PO (08:00)
[2021-02-12] MEDS: cholecalciferol (vitamin D3) 1,000 unit Tablet 1000 UNIT PO (08:00)
[2021-02-12] MEDS: aspirin 81 mg EC Tablet PO (08:00)
[2021-02-12] MEDS: metoprolol tartrate 50 mg Tablet PO (08:00)
[2021-02-12] MEDS: ascorbic acid 500 mg Tablet PO (08:00)
[2021-02-12] MEDS: nystatin powder 15 gm Btl 1 APPLIC TOPICAL (08:01)
[2021-02-12] MEDS: budesonide 0.5 mg/2 mL Neb INHALATION (08:04)
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
[2021-02-12 11:41] LABS: Glucose Point of Care 114 mg/dL (70-110)
--- NOTE | 2021-02-12 14:59 | PC.NURSE ---
assisted called, report given to nurse Negron. Right IJ removed, pressure applied. Bandage in place. Patient tolerated well. Pt to go to SNF with Donaldson in place per physician's orders. Hailee called and updated on plan of care for the day. Transport arrived at 1500 [facility]
--- NOTE | 2021-02-12 15:06 | PC.NURSE ---
No Patient belongings noted to be at bedside.
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
== END 2021-02-12 15:00 | disposition skilled nursing facility (03) | DRG 870 ==
LOC: ER 02-01 01:59 → ICU 02-01 07:20
PROVIDERS: Family Medicine; Admitting Provider Hospitalist; Emergency Provider Emergency Medicine; PCP Family Medicine; Visit Provider Internal Medicine
DX: A41.9 Sepsis, unspecified organism (principal); R65.21 Severe sepsis with septic shock; J96.01 Acute respiratory failure with hypoxia; J15.212 Pneumonia due to Methicillin resistant Staphylococcus aureus; I21.4 Non-ST elevation (NSTEMI) myocardial infarction; D65 Disseminated intravascular coagulation [defibrination syndrome]; J44.0 Chronic obstructive pulmonary disease with (acute) lower respiratory infection; J44.1 Chronic obstructive pulmonary disease with (acute) exacerbation; G81.11 Spastic hemiplegia affecting right dominant side; E87.2 Acidosis; J94.2 Hemothorax; J90 Pleural effusion, not elsewhere classified; M62.82 Rhabdomyolysis; E87.1 Hypo-osmolality and hyponatremia; J98.11 Atelectasis; N17.9 Acute kidney failure, unspecified; Z87.820 Personal history of traumatic brain injury; F10.21 Alcohol dependence, in remission; F98.8 Other specified behavioral and emotional disorders with onset usually occurring in childhood and adolescence; F41.9 Anxiety disorder, unspecified; G89.29 Other chronic pain; B18.2 Chronic viral hepatitis C; M54.2 Cervicalgia; M25.511 Pain in right shoulder; M51.36 Other intervertebral disc degeneration, lumbar region; F32.9 Major depressive disorder, single episode, unspecified; E11.9 Type 2 diabetes mellitus without complications; G31.09 Other frontotemporal neurocognitive disorder; F02.80 Dementia in other diseases classified elsewhere, unspecified severity, without behavioral disturbance, psychotic disturbance, mood disturbance, and anxiety; K21.9 Gastro-esophageal reflux disease without esophagitis; I10 Essential (primary) hypertension; E03.9 Hypothyroidism, unspecified; M96.1 Postlaminectomy syndrome, not elsewhere classified; R00.0 Tachycardia, unspecified; Z66 Do not resuscitate; I48.91 Unspecified atrial fibrillation; Z79.82 Long term (current) use of aspirin; Z79.891 Long term (current) use of opiate analgesic; Z79.84 Long term (current) use of oral hypoglycemic drugs
CPT/HCPCS: 36415; 36416; 36592; 36600; 51702; 71045; 71250; 71275; 74018; 74177; 80053; 80202; 81001; 82550; 82728; 82803; 82962; 83036; 83605; 83690; 83735; 83880; 84100; 84145; 84443; 84484; 85007; 85025; 85027; 85362; 85378; 85384; 85610; 85651; 85730; 86140; 86403; 86850; 86900; 86920; 87040; 87070; 87075; 87205; 87426; 87635; 87641; 92507; 92526; 92610; 93005; 93306; 93970; 94002; 94003; 94640; 94660; 94799; 96361; 96372; 96374; 96375; 97110; 97161; 97530; 99291; C9113; J0330; J0743; J1100; J1650; J1815; J1940; J1956; J2020; J2060; J2250; J2270; J2405; J2704; J2997; J3010; J3370; J3480; J3490; J7030; J7626; Q9967

== ENCOUNTER 2021-02-22 12:53 | Emergency (ER) | payer OTHER, MEDICAID, SELFPAY ==
[2021-02-22] VITALS (9 sets, daily range): BP systolic 116; BP diastolic 81; PULSE 82–99; RESP 14–18; TEMP 36.4; O2SAT 95–100; BMI 30.2
--- NOTE | 2021-02-22 13:19 | XR_ITS ---
WS: [id number] Exam: XR chest 1V portable [id number] Date/Time of Exam: 02/22/2021 1:19 PM Reason For Exam: syncope Comparison 02/11/2021. Residual infiltrate seen in the lingula. The right lung is clear. Heart size is normal. Plate and screw fixation of multiple right-sided rib fractures. The mediastinum is not widen ed. No pneumothorax. No pleural effusion. XR/XR chest 1V portable [id number] IMPRESSION: 1. Residual infiltrate in the lingula. There is been significant improvement si nce previous study. 2. Additional findings as above.
--- NOTE | 2021-02-22 13:19 | CT_ITS ---
WS: [id number] CTA CHEST WITH CT ABDOMEN AND PELVIS. HISTORY: Epigastric pain and short of breath. TECHNIQUE: CT angiogram is performed through the chest. Additional imaging is performed through the a bdomen and pelvis with IV contrast. Sagittal and coronal reformats have been submitted. MIP imaging also reviewed. All CT scans at [facility] use at least one of these dose optimization techniqu es: automated exposure control; mA and/or kV adjustment per patient size (includes targeted exams whe re dose is matched to clinical indication); or iterative reconstruction. Contrast: Omnipaque 350; 95 cc IV. DLP: 2610.24 mGy.cm COMPARISON: 02/04/2021 and 01/31/2021 Chest CTA: Good opacification of the pulmonary artery. There are no filling defects. Beyond the segme ntal branches the opacification is more limited due to adjacent airspace disease. Mild atherosclerosi s aorta. Mild crowding of the lung markings and haziness throughout both lungs which is probably due to small amount of edema. Small layering LEFT pleural effusion and loculated fluid within the LEFT ma stacie fissure. Mediastinal and hilar lymph nodes have increased in size since 02/01/2021. Cluster of lymp h nodes at the RIGHT hilum measures 2.5 x 2.0 cm. Additional mediastinal and hilar lymph nodes have i ncreased in size. Abdomen CT: Liver and spleen and gallbladder are negative. Normal pancreas and adrenal glands. No yves al obstruction. No ascites or adenopathy in the abdomen. Mild air distention of the GI tract. No obst ruction. Pelvic CT: Well-distended urinary bladder. No free fluid or adenopathy within the pelvis. T7 anterior wedging by 20%. CT/CT angio chest w abd pel w con IMPRESSION: 1. No pulmonary embolism. 2. Increasing mediastinal and hilar lymphadenopathy. May be reactive. No histo ry of malignancy. 3. Loculated fluid along the LEFT major fissure with a small layering LEFT ple ural effusion. 4. Minimal atelectasis at the RIGHT lung base. 5. No GI tract obstruction. 6. Stable 20% T7 compression fracture.
--- NOTE | 2021-02-22 13:21 | ECG_ITS ---
[facility] Test Date: 2021-02-22 Pat Name: Jayjay Peterson Department: Room: Gender: Male Research Leader: : 1965 Requested By: Matthew Nicole Order Number: [id number] Jalloh MD: Gonzalo Paniagua M.D. Measurements Intervals [place] Rate: 100 P: 48 [place]: 152 QRS: 30 QRSD: 96 T: 51 QT: 332 QTc: 429 Interpretive Statements SINUS TACHYCARDIA POSSIBLE LEFT ATRIAL ENLARGEMENT [-0.1mV P-WAVE IN V1/V2] Compared to ECG 02/08/2021 17:44:26 Ventricular premature complex(es) no longer present T-wave abnormality no longer present Electronically Signed On 02-22-2021 22:10:49 CDT by Gonzalo Paniagua M.D. [email or web address].[employer]/[id number]
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
[2021-02-22 14:00] LABS: Basophils % 0.5 %; Eosinophils # 0.1 10^3/uL (0.0-0.8); Eosinophils % 3.3 %; Hematocrit 33.6 % (42.0-52.0); Hemoglobin 10.5 g/dL (11.7-16.6); Lymphocytes # 1.6 10^3/uL (0.8-4.8); Lymphocytes % 40.3 %; Mean Corpuscular HGB Conc 31.3 g/dL (30.0-36.0); Mean Corpuscular Hemoglobin 24.7 pg (28.0-34.0); Mean Corpuscular Volume 79.1 fl (80-94); Mean Platelet Volume 10.1 fL (7.4-10.4); Monocytes # 0.5 10^3/uL (0.2-0.9); Monocytes % 12.8 %; Neutrophils # 1.67 10^3/uL (1.8-7.7); Neutrophils % 42.6 %; Nucleated Red Blood Cells % 0 %; Platelet Count 329 10^3/cmm (130-400); Red Blood Count 4.25 10^6/uL (4.1-5.3); Red Cell Distribution Width 17.2 % (12.1-15.1); White Blood Count 3.9 10^3/uL (4.0-10.0)
[2021-02-22] MEDS: iohexol 350 mg/mL 100 mL Btl IV ×2 (14:04)
[2021-02-22 14:13] LABS: INR 1.12 (0.8-1.2)
[2021-02-22 14:14] LABS: Partial Thromboplastin Time 30.5 SECONDS (23.9-36.7)
[2021-02-22 14:26] LABS: Lactate (Lactic Acid level) 1.1 mmol/L (0.5-2.2)
[2021-02-22 14:32] LABS: Troponin(5th) Baseline 22 ng/L (0-15)
[2021-02-22 14:39] LABS: NT Pro B Type Natriuretic Pept 104 pg/mL (0-125); Procalcitonin 0.27 ng/mL (0-0.5)
[2021-02-22 14:50] LABS: Alanine Aminotransferase 40 U/L (0-41); Albumin Level 3.1 g/dL (3.5-5.2); Alkaline Phosphatase 63 IU/L (40-130); Anion Gap 17.2 (5-19); Aspartate Amino Transferase 49 U/L (0-40); Blood Urea Nitrogen 11 mg/dL (6-20); Calcium 8.7 mg/dL (8.5-10.5); Carbon Dioxide 24 mmol/L (22-29); Chloride 92 mmol/L (98-107); Globulin 4.8 g/dL (1.3-4.6); Glomerular Filtration Rate 311.3 mL/min (90-130); Glucose 134 mg/dL (65-115); Lipase 41 U/L (13-60); Magnesium 1.5 mg/dL (1.7-2.3); Osmolality Calculated 269 mOsm/kg (285-295); Potassium 4.2 mmol/L (3.5-5.1); Sodium 129 mmol/L (136-145); Total Bilirubin 0.3 mg/dL (0.15-1.2); Total Protein 7.9 g/dL (6.6-8.7)
[2021-02-22] MEDS: sodium chloride 0.9% 1,000 ML 999 ML IV (14:54)
[2021-02-22 15:19] LABS: Glucose Point of Care 123 mg/dL (70-110)
--- NOTE | 2021-02-22 15:21 | ECG_ITS ---
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 Measurements Intervals [place] Rate: 89 P: 45 NC: 153 QRS: 29 QRSD: 99 T: 44 QT: 349 QTc: 425 Interpretive Statements SINUS RHYTHM Compared to ECG 02/22/2021 13:40:17 Sinus tachycardia no longer present Electronically Signed On 02-22-2021 22:21:06 CDT by Gonzalo Paniagua M.D. [id number]
[2021-02-22] MEDS: morphine 4 mg/mL SDV 1 mL IVP (15:36)
[2021-02-22] MEDS: ondansetron 2 mg/ML SDV 2 mL 4 MG IVP (15:37)
--- NOTE | 2021-02-22 16:03 | PC.PHAR ---
PT IS FROM [facility]-ELSA JULIAN FROM [facility] STATES THE PT HAD HIS AM MEDS-MEDICATIONS ENTERED ARE ON THE PTS MEDICATION MAR
[2021-02-22 16:08] LABS: Add Urine Microscopic? YES; Bilirubin Urine Neg (Negative); Blood Urine Neg (Negative); Glucose Urine UA Norm (Normal); Ketones Urine 1+ (Negative); Leukocyte Esterase Urine Negative (Negative); Nitrate Urine Negative (Negative); Protein Urine Trace (Negative); Sulfosalicylic Acid Urine Negative (Negative); Urine Appearance Clear (CLEAR); Urine Color Yellow (Yellow); Urobilinogen Urine 1 mg/dL (Negative); pH Urine 8 (5-7)
[2021-02-22 16:09] LABS: Bacteria Urine TRACE /hpf; Squamous Epithelial Cell Urine RARE /hpf (0-5); WBC Urine RARE /hpf (0-5)
[2021-02-22 16:28] LABS: SARS Covid-2 Antigen Negative (Negative)
[2021-02-22 17:04] LABS: Troponin 5 2HR 20.22 ng/L (0-15)
[2021-02-22] MEDS: magnesium sulfate premix 2 GM/50 ML PIGGYBACK IV (17:04)
[2021-02-22 17:07] LABS: Troponin 5 2HR Delta -1.78 ABS# (0-10)
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
== END 2021-02-23 00:21 | disposition other institution, planned readmission (95) ==
PROVIDERS: Emergency Provider Emergency Medicine; PCP Family Medicine
DX: R55 Syncope and collapse (principal); Z79.82 Long term (current) use of aspirin; Z79.84 Long term (current) use of oral hypoglycemic drugs; Z86.19 Personal history of other infectious and parasitic diseases; J44.9 Chronic obstructive pulmonary disease, unspecified; E11.9 Type 2 diabetes mellitus without complications; I10 Essential (primary) hypertension; Z87.820 Personal history of traumatic brain injury; Z20.822 Contact with and (suspected) exposure to COVID-19
CPT/HCPCS: 36416; 71045; 71275; 74177; 80053; 81001; 82962; 83605; 83690; 83735; 83880; 84145; 84443; 84484; 85025; 85610; 85730; 87426; 93005; 96365; 96375; 99284; J2270; J2405; J3475; J7030; Q9967

== ENCOUNTER → 2021-04-30 10:36 | Outpatient (BNVA) | payer OTHER, MEDICAID, SELFPAY | PROVIDERS: PCP Family Medicine; Visit Provider Anesthesiology | DX: G89.29 Other chronic pain (principal); M51.36 Other intervertebral disc degeneration, lumbar region; M96.1 Postlaminectomy syndrome, not elsewhere classified; M54.2 Cervicalgia; M25.511 Pain in right shoulder; F17.200 Nicotine dependence, unspecified, uncomplicated; Z79.891 Long term (current) use of opiate analgesic | CPT/HCPCS: 99214 ==